=== PATIENT | male | born 1950 | race Caucasian/White ===

== ENCOUNTER → 2017-09-07 | Outpatient (CLI) | payer MEDICARE, OTHER ==
[2017-09-07 10:54] LABS: ABSOLUTE BASOPHILS # (AUTO) 0.1 10^3/uL (0.0-0.2); ABSOLUTE EOSINOPHILS # (AUTO) 0.3 10^3/uL (0.0-0.6); ABSOLUTE LYMPHOCYTES (AUTO) 3.7 10^3/uL (0.5-4.7); ABSOLUTE NEUT (AUTO) 4.7 10^3/uL (1.7-8.2); BASOPHILS % (AUTO) 0.5 % (0-2); EOSINOPHILS % (AUTO) 2.8 % (0-6); HEMATOCRIT 40.7 % (37.9-51.0); HEMOGLOBIN 13.6 g/dL (13.5-17.0); HGB HCT DIFFERENCE 0.1; LYMPHOCYTES % (AUTO) 38.3 % (13-45); MEAN CORPUSCULAR HEMOGLOBIN 30.6 pg (27.0-33.4); MEAN CORPUSCULAR HGB CONC 33.4 g/dL (32.0-36.0); MEAN CORPUSCULAR VOLUME 92 fl (80-97); MONOCYTES % (AUTO) 10.4 % (3-13); RED BLOOD COUNT 4.44 10^6/uL (4.35-5.55); RED CELL DISTRIBUTION WIDTH 15.2 % (11.5-14.0); WHITE BLOOD COUNT 9.8 10^3/uL (4.0-10.5)
[2017-09-07 11:19] LABS: ALANINE AMINOTRANSFERASE 32 U/L (21-72); ALBUMIN 4.2 g/dL (3.5-5.0); ALKALINE PHOSPHATASE 119 U/L (38-126); ANION GAP 14 (5-19); ASPARTATE AMINO TRANSFERASE 25 U/L (17-59); BILIRUBIN,DIRECT 0.4 mg/dL (0.0-0.4); BILIRUBIN,TOTAL 0.8 mg/dL (0.2-1.3); BLOOD UREA NITROGEN 17 mg/dL (7-20); C-REACTIVE PROTEIN 29.4 mg/L (<10.0); CALCIUM 10.4 mg/dL (8.4-10.2); CARBON DIOXIDE 24 mmol/L (22-30); CHLORIDE 109 mmol/L (98-107); CREATININE RESULT 0.87 mg/dL (0.52-1.25); GLUCOSE 127 mg/dL (75-110); POTASSIUM 4.5 mmol/L (3.6-5.0); SODIUM 146.7 mmol/L (137-145); TOTAL PROTEIN 8.1 g/dL (6.3-8.2)
[2017-09-07 11:29] LABS: ERYTHROCYTE SEDIMENTATION RATE 44 mm/hr (0-20)
--- NOTE | 2017-09-07 11:48 | RADIOLOGY REPORT (SQ) ---
EXAM DESCRIPTION: FOOT LEFT COMPLETE COMPLETED DATE/TIME: 09/07/2017 10:42 am REASON FOR STUDY: NON-PRS CHRONIC ULCER OTH PRT LEFT FOOT W NECROSIS OF MUSCLE COMPARISON: None. NUMBER OF VIEWS: Three views left foot. LIMITATIONS: Limited by lack of clinical history and absence of any prior comparison imaging. FINDINGS: Extensive artifact over the lateral aspect of the foot much of which looks like bandages a nd dressing to superficial wound. Lateral foot soft tissue swelling. Status post amputation of the proximal 5th ray along the proximal metatarsal shaft. Regional heterot opic and periosteal new bone. Indeterminate for osteomyelitis. However, there is sclerosis in the p roximal metatarsal which may represent chronic irritation/ infection. Remaining toes and metatarsals are intact. OTHER: No other significant finding. IMPRESSION: 1. Postoperative and other changes related to the foot as described. Chronic osteomyeli tis may well be present. A comparison with any priors would prove helpful to assess for interval floridalma nge. Further evaluation with MRI may also prove helpful if warranted. TECHNICAL DOCUMENTATION: JOB ID: [id number]
== END ==
LOC: WC 10:06
PROVIDERS: ATTEND Nurse Practitioner Family
DX: E11.621 Type 2 diabetes mellitus with foot ulcer (principal); L97.523 Non-pressure chronic ulcer of other part of left foot with necrosis of muscle
CPT/HCPCS: 36415; 80053; 83036; 85025; 85652; 86140

== ENCOUNTER 2017-09-08 12:30 | Inpatient (IN) | payer MEDICARE, OTHER ==
[2017-09-08] MEDS ORDERED: VANCOMYCIN HCL INJ 1000 MG VIAL IV ONE (14:49)
[2017-09-08] MEDS ORDERED: PIPERACILLIN/TAZOBACTAM 3.375 GM VIAL IV ONE (14:49)
--- NOTE | 2017-09-08 14:50 | ER Document Report ---
ED Medical Screen (RME) - General Mode of Arrival: Wheelchair Information source: Patient TRAVEL OUTSIDE OF THE U[place]S. IN LAST 30 DAYS: No - HPI Patient complains to provider of: Left foot infection Onset: This morning Associated Symptoms: Other - see notes above - Related Data Smoking: Non-smoker Frequency of alcohol use: Occasional Drug Abuse: None - General Chief Complaint: Foot Pain Stated Complaint: LEFT FOOT PAIN,REDNESS Time Seen by Provider: 09/08/17 14:38 Notes: 67 year old male with history of diabetes presents to the ED after being seen by Dr. Paula and told that he has a left foot infection. Patient states that the complication with his foot started 1 year ago with some lateral swelling. Patient saw multiple orthopedic surgeons who told him that an orthopedic boot would help with the swelling. 3 weeks ago patient explains that his foot became severely infected and was hospitalized at [facility] for 1 week. Patient was sent to [facility] to have his left fifth toe amputated. The wound was left open and he was sent to [place] for wound care. Patient saw Dr. Paula this morning who debrided the wound and said that the foot looks infected and he needs to be seen by the emergency department. (REGINA NUNEZ) - Related Data Allergies/Adverse Reactions: No Known Allergies Allergy (Verified 09/08/17 12:32) Past Medical History - General Information source: Patient - Social History Chew tobacco use (# tins/day): No Frequency of alcohol use: Occasional Drug Abuse: None Family history: Reviewed & Not Pertinent Endocrine Medical History: Reports: Hx Diabetes Mellitus Type 2 Renal/ Medical History: Denies: Hx Peritoneal Dialysis Past Surgical History: Reports: Hx Orthopedic Surgery - right shoulder - Immunizations Hx Diphtheria, Pertussis, Tetanus Vaccination: Yes History of Influenza Vaccine for 08/2017 - 01/2018 Season: No Review of Systems - Review of Systems Constitutional: No symptoms reported EENT: No symptoms reported Cardiovascular: No symptoms reported Respiratory: No symptoms reported Gastrointestinal: No symptoms reported Genitourinary: No symptoms reported Male Genitourinary: No symptoms reported Musculoskeletal: See HPI, Other - left foot pain and infection Skin: No symptoms reported Hematologic/Lymphatic: No symptoms reported Neurological/Psychological: No symptoms reported -: Yes All other systems reviewed and negative Physical Exam - General General appearance: Alert In distress: None - Extremities General upper extremity: Normal inspection, Normal ROM General lower extremity: No: Normal inspection - see foot exam below Foot: Other - Left fifth digit is absent. There is a large chronic appearing wound with packing that extends down two-thirds of the left foot to the base of the fifth metatarsal with surrounding erythema and serosanguineous discharge.. No: Normal - Vital signs Vitals: Temp Pulse Resp BP Pulse Ox 99.9 F 91 20 126/77 H 96 09/08/17 12:35 09/08/17 12:35 09/08/17 12:35 09/08/17 12:35 09/08/17 12:35 Course - Re-evaluation Re-evalutation: 09/08/17 14:[address] Paula, the pmo project manager, states that he already has taken a small piece of bone to send for culture, feels patient has active infection, agrees with getting CBC, CMP, ESR, CRP and given vancomycin and Zosyn. Recommends surgical debridement that is larger than what he can perform in the office, recommends admission hospitalist and debridement by surgicalist, states that if the surgicallist cannot get the patient to the OR today that Dr. Paula is happy be consulted but the soonest he could come in and operate would be tomorrow. ( RUPERTO SYLVESTER) - Vital Signs Vital signs: Temp Pulse Resp BP Pulse Ox 99.9 F 91 20 126/77 H 96 09/08/17 12:35 09/08/17 12:35 09/08/17 12:35 09/08/17 12:35 09/08/17 12:35 Doctor's Discharge - Discharge Clinical Impression: Diabetic foot ulcer Condition: Fair Disposition: ADMITTED INPATIENT Referrals: NATTY HERNANDEZ MD [Primary Care Provider] - Follow up as needed Scribe Documentation - Scribe Written by Christinee:: Juli Paz, 09/08/2017 1617 acting as scribe for :: Ashlyn
--- NOTE | 2017-09-08 16:08 | RADIOLOGY REPORT (SQ) ---
EXAM DESCRIPTION: FOOT LEFT COMPLETE COMPLETED DATE/TIME: 09/08/2017 3:56 pm REASON FOR STUDY: left foot wound, possible osteo COMPARISON: None. NUMBER OF VIEWS: Three views. TECHNIQUE: AP, lateral and oblique radiographic images acquired of the left foot. LIMITATIONS: None. FINDINGS: MINERALIZATION: Normal. BONES: There is amputation of the 5th digit from the mid 5th metatarsal. No osteomyelitis is appreci ated. JOINTS: No effusions. SOFT TISSUES: Somewhat amorphous calcifications are present in soft tissues laterally. Extensive sof t tissue irregularity is present. OTHER: No other significant finding. IMPRESSION: Amputation with extensive soft tissue changes as described. No definite osteomyelitis i s appreciated. TECHNICAL DOCUMENTATION: JOB ID: [id number] [employer]- All Rights Reserved
--- NOTE | 2017-09-08 16:26 | ER Document Report ---
ED General - General Chief Complaint: Foot Pain Stated Complaint: LEFT FOOT PAIN,REDNESS Time Seen by Provider: 09/08/17 14:38 Mode of Arrival: Wheelchair Information source: Patient, Dr. Office Notes: 67-year-old diabetic male sent in with concerns for ulceration of the left foot that will require debridement. Patient notes symptoms have been ongoing for over 1 year now and has been associated with multiple admissions and surgical interventions. Patient was recently discharged from care facility where he was receiving antibiotics. Patient notes that he went to the wound care clinic and they were concerned that they will require further surgery. Patient denies any fevers or chills denies any nausea vomiting admits to drainage from the foot. TRAVEL OUTSIDE OF THE U.S. IN LAST 30 DAYS: No - HPI Onset: Other Onset/Duration: Persistent Quality of pain: Achy Severity: Mild Pain Level: 1 Associated symptoms: Other Exacerbated by: Movement Relieved by: Denies Similar symptoms previously: Yes Recently seen / treated by doctor: Yes - Related Data Allergies/Adverse Reactions: No Known Allergies Allergy (Verified 09/08/17 12:32) Past Medical History - General Information source: Patient - Social History Smoking Status: Never Smoker Cigarette use (# per day): No Chew tobacco use (# tins/day): No Smoking Education Provided: No Frequency of alcohol use: Occasional Drug Abuse: None Family History: Reviewed & Not Pertinent Patient has suicidal ideation: No Endocrine Medical History: Reports: Hx Diabetes Mellitus Type 2 Renal/ Medical History: Denies: Hx Peritoneal Dialysis Past Surgical History: Reports: Hx Orthopedic Surgery - right shoulder - Immunizations Hx Diphtheria, Pertussis, Tetanus Vaccination: Yes Review of Systems - Review of Systems Notes: REVIEW OF SYSTEMS: CONSTITUTIONAL : Denies fever, chills, or sweats. Denies recent illness. EENT: Denies eye, ear, throat, or mouth pain or symptoms. Denies nasal or sinus congestion or discharge. Denies throat, tongue, or mouth swelling or difficulty swallowing. CARDIOVASCULAR: Denies chest pain. Denies palpitations or racing or irregular heart beat. Denies ankle edema. RESPIRATORY: Denies cough, cold, or chest congestion. Denies shortness of breath, difficulty breathing, or wheezing. GASTROINTESTINAL: Denies abdominal pain or distention. Denies nausea, vomiting , or diarrhea. Denies blood in vomitus, stools, or per rectum. Denies black, tarry stools. Denies constipation. GENITOURINARY: Denies difficulty urinating, painful urination, burning, frequency, blood in urine, or discharge. MUSCULOSKELETAL: Denies back or neck pain or stiffness. Denies joint pain or swelling. SKIN: Admits to left foot ulceration HEMATOLOGIC : Denies easy bruising or bleeding. LYMPHATIC: Denies swollen, enlarged glands. NEUROLOGICAL: Denies confusion or altered mental status. Denies passing out or loss of consciousness. Denies dizziness or lightheadedness. Denies headache. Denies weakness or paralysis or loss of use of either side. Denies problems with gait or speech. Denies sensory loss, numbness, or tingling. Denies seizures. PSYCHIATRIC: Denies anxiety or stress. Denies depression, suicidal ideation, or homicidal ideation. ALL OTHER SYSTEMS REVIEWED AND NEGATIVE. Dictation was performed using [employer] voice recognition software PHYSICAL EXAMINATION: GENERAL: Well-appearing, well-nourished and in no acute distress. HEAD: Atraumatic, normocephalic. EYES: Pupils equal round and reactive to light, extraocular movements intact, sclera anicteric, conjunctiva are normal. ENT: Nares patent, oropharynx clear without exudates. Moist mucous membranes. NECK: Normal range of motion, supple without lymphadenopathy LUNGS: Breath sounds clear to auscultation bilaterally and equal. No wheezes rales or rhonchi. HEART: Regular rate and rhythm without murmurs ABDOMEN: Soft, nontender, nondistended abdomen. No guarding, no rebound. No masses appreciated. Musculoskeletal: Normal range of motion, no pitting or edema. No cyanosis. NEUROLOGICAL: Cranial nerves grossly intact. Normal speech, normal gait. Normal sensory, motor exams PSYCH: Normal mood, normal affect. SKIN: Left foot is noted to have significant ulceration including amputation of the fifth digit Physical Exam - Vital signs Vitals: Temp Pulse Resp BP Pulse Ox 99.9 F 91 20 126/77 H 96 09/08/17 12:35 09/08/17 12:35 09/08/17 12:35 09/08/17 12:35 09/08/17 12:35 Course - Re-evaluation Re-evalutation: 09/08/17 16:26 Dr Sandhu paged 09/08/17 17:35 Pt is actually a hospitalist patient , will admit with antibiotics and surgical care - Vital Signs Vital signs: Temp Pulse Resp BP Pulse Ox 99.9 F 91 20 126/77 H 96 09/08/17 12:35 09/08/17 12:35 09/08/17 12:35 09/08/17 12:35 09/08/17 12:35 - Laboratory Result Diagrams: 09/08/17 17:15 09/08/17 17:15 - Diagnostic Test Radiology reviewed: Image reviewed, Reports reviewed Discharge - Discharge Clinical Impression: Diabetic foot ulcer Qualifiers: Diabetic foot ulcer location: toe Diabetes mellitus type: type 1 Laterality: left Non-pressure ulcer stage: with necrosis of muscle Qualified Code(s): E10.621 - Type 1 diabetes mellitus with foot ulcer; L97.523 - Non-pressure chronic ulcer of other part of left foot with necrosis of muscle; L97.523 - Non- pressure chronic ulcer of other part of left foot with necrosis of muscle; L97.523 - Non-pressure chronic ulcer of other part of left foot with necrosis of muscle; L97.523 - Non-pressure chronic ulcer of other part of left foot with necrosis of muscle Condition: Fair Disposition: ADMITTED INPATIENT Admitting Provider: Hospitalist Unit Admitted: Medical Floor
[2017-09-08 17:38] LABS: ABSOLUTE BASOPHILS # (AUTO) 0.1 10^3/uL (0.0-0.2); ABSOLUTE EOSINOPHILS # (AUTO) 0.3 10^3/uL (0.0-0.6); ABSOLUTE LYMPHOCYTES (AUTO) 3.2 10^3/uL (0.5-4.7); ABSOLUTE NEUT (AUTO) 5.7 10^3/uL (1.7-8.2); BASOPHILS % (AUTO) 0.9 % (0-2); EOSINOPHILS % (AUTO) 3.2 % (0-6); HEMOGLOBIN 13.2 g/dL (13.5-17.0); HGB HCT DIFFERENCE -0.4; LYMPHOCYTES % (AUTO) 30.9 % (13-45); MEAN CORPUSCULAR HEMOGLOBIN 30.6 pg (27.0-33.4); MEAN CORPUSCULAR VOLUME 93 fl (80-97); MONOCYTES % (AUTO) 9.5 % (3-13); RED BLOOD COUNT 4.31 10^6/uL (4.35-5.55); RED CELL DISTRIBUTION WIDTH 15.2 % (11.5-14.0); SEGMENTED NEUTROPHILS % (AUTO) 55.5 % (42-78); WHITE BLOOD COUNT 10.3 10^3/uL (4.0-10.5)
[2017-09-08] MEDS ORDERED: ONDANSETRON HCL INJ/PF 4 MG/2 ML SDV IV PRN (17:40)
[2017-09-08 17:56] LABS: ALANINE AMINOTRANSFERASE 32 U/L (21-72); ALBUMIN 4.1 g/dL (3.5-5.0); ALKALINE PHOSPHATASE 116 U/L (38-126); ANION GAP 14 (5-19); ASPARTATE AMINO TRANSFERASE 31 U/L (17-59); BILIRUBIN,DIRECT 0.5 mg/dL (0.0-0.4); BILIRUBIN,TOTAL 0.8 mg/dL (0.2-1.3); BLOOD UREA NITROGEN 17 mg/dL (7-20); C-REACTIVE PROTEIN 28.1 mg/L (<10.0); CALCIUM 10.3 mg/dL (8.4-10.2); CARBON DIOXIDE 21 mmol/L (22-30); CHLORIDE 113 mmol/L (98-107); CREATININE RESULT 0.79 mg/dL (0.52-1.25); GLUCOSE 102 mg/dL (75-110); POTASSIUM 4.8 mmol/L (3.6-5.0); SODIUM 148.4 mmol/L (137-145); TOTAL PROTEIN 7.9 g/dL (6.3-8.2)
[2017-09-08] MEDS ORDERED: GLUCAGON,HUMAN RECOMB 1 MG INJ IM PRN (17:58)
[2017-09-08] MEDS ORDERED: DEXTROSE 40% GEL 15 GM TUBE PO PRN ×2 (17:58)
[2017-09-08] MEDS ORDERED: DEXTROSE 50%-WATER 25 GM/50 ML DISP.SYRIN IV PRN ×2 (17:58)
[2017-09-08] MEDS ORDERED: PIPERACILLIN/TAZOBACTAM 3.375 GM VIAL IV SCH (18:00)
[2017-09-08] MEDS ORDERED: VANCOMYCIN HCL 0 MG in DEXTROSE 5%-WATER 250 ML IV NR (18:00)
[2017-09-08] MEDS ORDERED: RINGERS SOLUTION 1,000 ML IV PRN (18:01)
[2017-09-08] MEDS: LACTOBACILLUS ACIDOPHILUS 250 MG TAB PO SCH (18:26)
[2017-09-08] MEDS ORDERED: PIPERACILLIN SODIUM/TAZOBACTAM 3.375 GM in NORMAL SALINE 100 ML IV ONE (19:00)
[2017-09-08] MEDS: INSULIN GLARGINE,HUM.REC.ANLOG 1,000 UNIT/10 ML UNIT SUBCUT SCH (21:25)
[2017-09-08] MEDS: VANCOMYCIN HCL 1,250 MG in DEXTROSE 5%-WATER 250 ML IV SCH (21:53)
[2017-09-08] MEDS ORDERED: INSULIN GLARGINE,HUM.REC.ANLOG 1,000 UNIT/10 ML UNIT SUBCUT SCH (22:00)
[2017-09-08] MEDS: ASPIRIN 325 MG TABLET PO SCH (22:46)
[2017-09-08] MEDS: PIPERACILLIN SODIUM/TAZOBACTAM 3.375 GM in NORMAL SALINE 100 ML IV SCH (23:50)
[2017-09-09] MEDS ORDERED: DEXTROSE 40% GEL 15 GM TUBE PO PRN ×2 (00:40)
[2017-09-09] MEDS ORDERED: DEXTROSE 50%-WATER 25 GM/50 ML DISP.SYRIN IV PRN ×2 (00:40)
[2017-09-09] MEDS ORDERED: GLUCAGON,HUMAN RECOMB 1 MG INJ SUBCUT PRN (00:40)
--- NOTE | 2017-09-09 00:40 | PDOC H&P ---
History of Present Illness Admission Date/PCP: 09/08/17 17:19 NATTY HERNANDEZ MD Patient complains of: Left foot infection History of Present Illness: CHRIS HUNTER is a 67 year old male with a chronic left foot wound. Patient states that this all began last June. Patient states that he has failed several different therapies and finally had amputation of the small toe on the left. Patient have received antibiotics in the past. Patient is also a diabetic but states that he is well controlled. He does not have any sensation in his feet. He has pins and needles. Patient went to see Dr. Paula the frame expander for a wound check. Dr. Paula was concerned that wound is not healing and may be infected and requires surgical intervention. Patient denies any fevers and chills. Patient was told that he may have surgery today and has not eaten. In the ED x ray was completed and did not show any osteo. Patient is without leukocytosis or fever. Patient was given a dose of vancomyin and zosyn. Hospitalist was called for further evaluation of the patient and surgical consultation for I&D. Past Medical History Cardiac Medical History: Reports: Hypertension Endocrine Medical History: Reports: Diabetes Mellitus Type 2 Past Surgical History Past Surgical History: Reports: Orthopedic Surgery - right shoulder Social History Information Source: Patient Smoking Status: Never Smoker Frequency of Alcohol Use: None Hx Recreational Drug Use: No Hx Prescription Drug Abuse: No - Advance Directive Resuscitation Status: Full Code Family History Family History: Malignancy, Other - mother in MVA Parental Family History Reviewed: No Children Family History Reviewed: No Sibling(s) Family History Reviewed.: No Medication/Allergy Home Medications: Albiglutide [Tanzeum] 30 mg SQ FR@1000 09/08/17 Atorvastatin Calcium [Lipitor 10 mg Tablet] 10 mg PO QHS 09/08/17 Gabapentin [Neurontin 300 mg Capsule] 300 mg PO Q8 09/08/17 Insulin Aspart [Novolog Flexpen] 15 units SQ AC 09/08/17 Insulin Glargine,Hum.rec.anlog [Lantus] 90 units SQ QHS 09/08/17 Losartan Potassium [Cozaar 100 mg Tablet] 100 mg PO DAILY 09/08/17 Metoprolol Succinate [Toprol Xl 25 mg Tab.sr] 25 mg PO DAILY 09/08/17 Allergies/Adverse Reactions: No Known Allergies Allergy (Verified 09/08/17 12:32) Review of Systems Constitutional: ABSENT: chills, fever(s), headache(s), weight gain, weight loss Eyes: ABSENT: visual disturbances Ears: ABSENT: hearing changes Cardiovascular: PRESENT: edema. ABSENT: chest pain, dyspnea on exertion, orthropnea, palpitations Respiratory: ABSENT: cough, hemoptysis Gastrointestinal: ABSENT: abdominal pain, constipation, diarrhea, hematemesis, hematochezia, nausea, vomiting Genitourinary: ABSENT: dysuria, hematuria Musculoskeletal: ABSENT: joint swelling Integumentary: PRESENT: wounds. ABSENT: rash Neurological: ABSENT: abnormal gait, abnormal speech, confusion, dizziness, focal weakness, syncope Psychiatric: ABSENT: anxiety, depression, homidical ideation, suicidal ideation Endocrine: PRESENT: cold intolerance. ABSENT: heat intolerance, polydipsia, polyuria Hematologic/Lymphatic: ABSENT: easy bleeding, easy bruising Physical Exam Vital Signs: Temp Pulse Resp BP Pulse Ox 99.9 F 91 20 126/77 H 96 09/08/17 12:35 09/08/17 12:35 09/08/17 12:35 09/08/17 12:35 09/08/17 12:35 General appearance: PRESENT: morbidly obese Head exam: PRESENT: normocephalic Eye exam: PRESENT: conjunctiva pink, EOMI. ABSENT: scleral icterus Ear exam: PRESENT: normal external ear exam Mouth exam: PRESENT: moist, tongue midline Neck exam: ABSENT: carotid bruit, JVD, lymphadenopathy, thyromegaly Respiratory exam: PRESENT: clear to auscultation benny. ABSENT: rales, rhonchi, wheezes Cardiovascular exam: PRESENT: RRR. ABSENT: diastolic murmur, rubs, systolic murmur GI/Abdominal exam: PRESENT: normal bowel sounds, soft. ABSENT: distended, guarding, mass, organolmegaly, rebound, tenderness Rectal exam: PRESENT: deferred Extremities exam: PRESENT: pedal edema, other - left pedal and leg edema surgical boot dressing of left foot bloody. ABSENT: calf tenderness, clubbing Neurological exam: PRESENT: alert, awake, oriented to person, oriented to place , oriented to time, oriented to situation, CN II-XII grossly intact, motor sensory deficit Psychiatric exam: PRESENT: appropriate affect, normal mood. ABSENT: homicidal ideation, suicidal ideation Skin exam: PRESENT: dry, warm, other - left foot wound. ABSENT: cyanosis, rash Results Impressions: Foot X-Ray 09/08/17 14:49 IMPRESSION: Amputation with extensive soft tissue changes as described. No definite osteomyelitis is appreciated. Assessment & Plan - Diagnosis (1) Diabetic foot ulcer Qualifiers: Diabetic foot ulcer location: toe Diabetes mellitus type: type 2 Laterality: left Non-pressure ulcer stage: with necrosis of muscle Qualified Code(s): E11.621 - Type 2 diabetes mellitus with foot ulcer; L97.523 - Non-pressure chronic ulcer of other part of left foot with necrosis of muscle ; L97.523 - Non-pressure chronic ulcer of other part of left foot with necrosis of muscle; L97.523 - Non-pressure chronic ulcer of other part of left foot with necrosis of muscle; L97.523 - Non-pressure chronic ulcer of other part of left foot with necrosis of muscle Is this a current diagnosis for this admission?: Yes Plan: Patient referred by Dr. Paula for further evaluation. Patient continued on vancomycin and zosyn. Blood cultures drawn. Surgery consulted and will most likely evaluate patient in the am. No obvious osteo seen on XR of the foot. Will make patient NPO after midnight. (2) Morbid obesity Is this a current diagnosis for this admission?: Yes Plan: Counseled patient on caloric restriction. Physical activity limited by foot wound. (3) Type 2 diabetes mellitus Is this a current diagnosis for this admission?: Yes Plan: Will given patient 1/2 dose levemir as he will be NPO. Continue 15 Units of aspart with meals and SSI. (4) Hypernatremia Is this a current diagnosis for this admission?: Yes Plan: Secondary to dehydration. Will give gentle IV hydration and check labs in the am.
[2017-09-09] MEDS: VANCOMYCIN HCL 1,250 MG in DEXTROSE 5%-WATER 250 ML IV SCH ×3 (05:19→21:21)
[2017-09-09] MEDS: LANSOPRAZOLE 30 MG TAB.RAP.DR PO SCH (05:34)
[2017-09-09 06:36] LABS: HEMATOCRIT 36.4 % (37.9-51.0); HEMOGLOBIN 12.2 g/dL (13.5-17.0); HGB HCT DIFFERENCE 0.2; MEAN CORPUSCULAR HEMOGLOBIN 30.5 pg (27.0-33.4); MEAN CORPUSCULAR HGB CONC 33.4 g/dL (32.0-36.0); MEAN CORPUSCULAR VOLUME 91 fl (80-97); RED BLOOD COUNT 3.99 10^6/uL (4.35-5.55); RED CELL DISTRIBUTION WIDTH 15.3 % (11.5-14.0)
[2017-09-09 06:47] LABS: ANION GAP 11 (5-19); BLOOD UREA NITROGEN 15 mg/dL (7-20); CALCIUM 9.8 mg/dL (8.4-10.2); CARBON DIOXIDE 23 mmol/L (22-30); CHLORIDE 110 mmol/L (98-107); CREATININE RESULT 0.81 mg/dL (0.52-1.25); GLUCOSE 134 mg/dL (75-110); MAGNESIUM 1.7 mg/dL (1.6-2.3); POTASSIUM 4.1 mmol/L (3.6-5.0); SODIUM 143.8 mmol/L (137-145)
[2017-09-09] MEDS: PIPERACILLIN SODIUM/TAZOBACTAM 3.375 GM in NORMAL SALINE 100 ML IV SCH ×4 (06:50→23:39)
[2017-09-09] MEDS: INSULIN LISPRO 100 UNIT/ML 3 ML VIAL SUBCUT SCH ×3 (08:08→17:30)
[2017-09-09] MEDS ORDERED: VANCOMYCIN HCL INJ 1000 MG VIAL IV SCH (10:00)
[2017-09-09] MEDS: LACTOBACILLUS ACIDOPHILUS 250 MG TAB PO SCH ×2 (11:41→18:15)
--- NOTE | 2017-09-09 14:24 | RADIOLOGY REPORT (SQ) ---
EXAM DESCRIPTION: MRI LT LOWER EXTREMITY WITHOUT COMPLETED DATE/TIME: 09/09/2017 2:06 pm REASON FOR STUDY: Diabetic foot ulcer COMPARISON: Left foot films 09/07/2017, 09/08/2017 TECHNIQUE: Multiplanar imaging to include fat and fluid sensitive sequences. LIMITATIONS: None. FINDINGS: Along the lateral half of left foot, diffuse inflammatory phlegmon is present deep to a la rge soft tissue ulcer. Ulcer measures at least 5 cm in diameter. Phlegmon measures 12 cm long by 4 cm transverse by 4.4 cm AP. The phlegmon surrounds the proximal residual half of the 5th metatarsal which has abnormal bone marro w signal worrisome for osteomyelitis. The distal half of the 5th metatarsal and 5th toe have been re sected. There is atrophy of the intra osseous muscles and flexor digitorum brevis muscles with fatty replacem ent. Throughout the forefoot, there is skin thickening, subcutaneous edema, and increased interstitial flu id in the superficial and deep tissues worrisome for diffuse cellulitis. Remainder of the bones of the forefoot are grossly intact. IMPRESSION: Abnormal marrow signal in the proximal half of the 5th metatarsal with surrounding phleg mon worrisome for infection and osteomyelitis. Diffuse forefoot cellulitis, large soft tissue ulcer along the lateral forefoot. TECHNICAL DOCUMENTATION: JOB ID: [id number] [employer]- All Rights Reserved
[2017-09-09] MEDS: ACETAMINOPHEN 325 MG TABLET PO PRN (15:22)
--- NOTE | 2017-09-09 16:48 | CONSULTATION REPORT E ---
Consultation Report NAME: CHRIS HUNTER : 1950 AGE: 67Y DATE: 09/09/2017 212 B TO: LA ACUAÑ M.D. FROM: Requesting Physician DATE OF CONSULTATION: 09/09/2017 REASON FOR CONSULTATION: Patient with chronic wound on the left foot and for a possible debridement. HISTORY OF PRESENT ILLNESS: This is a 67-year-old type 2 diabetic on insulin who had a chronic wound on the left foot. This was initially debrided at [facility] around mid June and stayed in the hospital for 7 to 8 days, and then transferred to [facility] where they did an amputation of the left fifth toe, transmetatarsal fifth. He was then discharged and sent to [facility] where they applied a wound VAC around the first week of July. He was then discharged from [facility] around 09/02. [facility] and eventually was seen yesterday. He was apparently seen by a Dr. Paula at the [facility] who sent the patient to the emergency room for possible further debridement. Patient was in earlier this morning and I ordered an MRI of the left foot. MRI was suspicious for osteomyelitis of the remaining fifth metatarsal bone. Patient will likely need a further amputation of the fifth metatarsal. PAST MEDICAL HISTORY: 1. Endocrine medical history: Reports diabetes mellitus type 2. 2. Renal/ history: Denies history of peritoneal dialysis. PAST SURGICAL HISTORY: Reports history of orthopedic surgery, right shoulder. SOCIAL HISTORY: Never smoked. Alcohol use, occasional. Drug use, none. FAMILY HISTORY: Reviewed and not pertinent. ALLERGIES: No known drug allergies. REVIEW OF SYSTEMS: CONSTITUTIONAL: Denies fever, chills, or sweats. EENT: Denies eye, ear, throat, or mouth pain or symptoms. CARDIOVASCULAR: Denies chest pain. RESPIRATORY: Denies cough, cold, or chest congestion. GASTROINTESTINAL: Denies abdominal pains, nausea, vomiting, or diarrhea. GENITOURINARY: Denies difficulty voiding. MUSCULOSKELETAL: Denies back or neck pains or joint pains. SKIN: Admits to left foot ulceration. HEMATOLOGIC: Denies easy bruisability or bleeding. LYMPHATIC: Denies swollen or enlarged glands. UROLOGIC: Denies confusion or altered mental status. PSYCHIATRIC: Denies anxiety or stress. All other systems reviewed and negative. PHYSICAL EXAMINATION: GENERAL: Patient is alert and oriented, well nourished and in no apparent acute distress. HEAD: Atraumatic, normocephalic. EYES: Pupils equal, round, and reactive to light, extraocular movements intact, conjunctivae are normal. ENT: Nares patent. Moist mucous membranes. NECK: Normal range of motion and supple. LUNGS: Clear to auscultation bilaterally. HEART: Regular rate and rhythm. No murmurs. ABDOMEN: Soft, nontender. MUSCULOSKELETAL: Normal range of motions. No pitting edema. NEUROLOGIC: Cranial nerves intact. Patient is alert and oriented x3. PSYCH: Normal mood and normal affect. SKIN: The left foot is noted to have a large ulceration but no significant drainage. Appears to have amputation of the left fifth toe down to mid metatarsal. VITALS: Temperature is 99.9 Fahrenheit, pulse 91, respiratory 20 per minute, blood pressure 126/77, pulse ox 96% on room air. IMPRESSION: 1. Ulcer of the left lateral foot post amputation of the fifth toe and left fifth transmetatarsal. 2. High probability of osteomyelitis of the remaining fifth metatarsal bone on MRI today. PLAN: 1. Start IV antibiotics. 2. Keep n.p.o. for possible further debridement and amputation of the remaining fifth metatarsal bone. DICTATING PHYSICIAN: LA ACUÑA M.D. [id number] PHY#: [id number] ID: [id number] JOB#: [id number] ACCT: [id number] cc:LA ACUÑA M.D. >
[2017-09-09] MEDS ORDERED: TANZEUM 30 MG SUBCUT SCH (20:00)
[2017-09-09] MEDS: OXYCODONE-ACETAMINOPHEN 5-325 MG TABLET PO PRN (20:21)
[2017-09-09] MEDS: ATORVASTATIN CALCIUM 10 MG TABLET PO SCH (21:20)
[2017-09-09] MEDS: GABAPENTIN 300 MG CAPSULE PO SCH (21:21)
[2017-09-09] MEDS: ASPIRIN 325 MG TABLET PO SCH (21:21)
[2017-09-09] MEDS: INSULIN GLARGINE,HUM.REC.ANLOG 1,000 UNIT/10 ML UNIT SUBCUT SCH (21:53)
[2017-09-09 22:28] LABS: CREATININE RESULT 0.86 mg/dL (0.52-1.25)
[2017-09-10] MEDS: PIPERACILLIN SODIUM/TAZOBACTAM 3.375 GM in NORMAL SALINE 100 ML IV SCH ×4 (05:23→23:38)
[2017-09-10] MEDS: GABAPENTIN 300 MG CAPSULE PO SCH ×3 (05:24→21:48)
[2017-09-10] MEDS: LANSOPRAZOLE 30 MG TAB.RAP.DR PO SCH (05:26)
[2017-09-10] MEDS: VANCOMYCIN HCL 1,250 MG in DEXTROSE 5%-WATER 250 ML IV SCH ×3 (06:25→21:51)
--- NOTE | 2017-09-10 07:44 | EKG REPORT ---
SEVERITY:- ABNORMAL ECG - SINUS RHYTHM VENTRICULAR PREMATURE COMPLEX LAD, CONSIDER LEFT ANTERIOR FASCICULAR BLOCK CONSIDER ANTERIOR INFARCT : Confirmed by: Zi Connell MD 10-Sep-2017 07:43:53
[2017-09-10] MEDS ORDERED: (PENDING PHARMACY ID) (Insulin Aspart [Novolog Flexpen] 15 UNITS) SQ SCH (08:00)
[2017-09-10] MEDS ORDERED: INSULIN LISPRO 100 UNIT/ML 3 ML VIAL SUBCUT SCH (08:00)
[2017-09-10] MEDS: INSULIN LISPRO 100 UNIT/ML 3 ML VIAL SUBCUT SCH ×3 (09:07→18:03)
[2017-09-10] MEDS ORDERED: LOSARTAN POTASSIUM 50 MG TABLET PO SCH (10:00)
[2017-09-10] MEDS ORDERED: METOPROLOL SUCCINATE 25 MG TAB.SR.24H PO SCH (10:00)
[2017-09-10] MEDS: LACTOBACILLUS ACIDOPHILUS 250 MG TAB PO SCH ×2 (10:28→18:03)
--- NOTE | 2017-09-10 10:41 | PDOC PROGRESS REPORT ---
Subjective Progress Note for:: 09/09/17 Subjective:: Patient is a 67 year old male admitted for left diabetic foot ulcer. Patient found to have osteo on MRI. Patient is currently doing well. He is awaiting surgery which will be tomorrow. He is worried about not getting the right amount of insulin. Physical Exam Vital Signs: Temp Pulse Resp BP Pulse Ox 98.6 F 81 18 156/96 H 97 09/09/17 19:41 09/09/17 19:41 09/09/17 19:41 09/09/17 19:41 09/09/17 19:41 Intake & Output 09/08/17 09/09/17 09/10/17 06:59 06:59 06:59 Intake Total 1160 Output Total 1050 Balance 110 General appearance: PRESENT: no acute distress, morbidly obese Head exam: PRESENT: normocephalic Eye exam: PRESENT: conjunctiva pink. ABSENT: scleral icterus Mouth exam: PRESENT: moist, tongue midline Neck exam: PRESENT: carotid bruit, lymphadenopathy, thyromegaly. ABSENT: JVD Respiratory exam: PRESENT: clear to auscultation benny. ABSENT: rales, rhonchi, wheezes Cardiovascular exam: PRESENT: RRR. ABSENT: diastolic murmur, rubs, systolic murmur Pulses: PRESENT: normal dorsalis pedis pul Vascular exam: PRESENT: normal capillary refill GI/Abdominal exam: PRESENT: normal bowel sounds, soft - protuberant. ABSENT: distended, guarding, mass, organolmegaly, rebound, tenderness Rectal exam: PRESENT: deferred Extremities exam: PRESENT: full ROM. ABSENT: calf tenderness, clubbing, pedal edema Musculoskeletal exam: PRESENT: full ROM, other - left foot wound. Dressing in place. Neurological exam: PRESENT: alert, awake, oriented to person, oriented to place , oriented to time, oriented to situation, CN II-XII grossly intact. ABSENT: motor sensory deficit Psychiatric exam: PRESENT: appropriate affect, normal mood. ABSENT: homicidal ideation, suicidal ideation Skin exam: PRESENT: dry, intact, warm. ABSENT: cyanosis, rash Results Laboratory Results: 09/09/17 22:00 09/09/17 22:00 Creatinine 0.86 Est GFR ( Amer) > 60 Est GFR (Non-Af Amer) > 60 Impressions: Foot X-Ray 09/08/17 14:49 IMPRESSION: Amputation with extensive soft tissue changes as described. No definite osteomyelitis is appreciated. Lower Extremity MRI 09/09/17 00:00 IMPRESSION: Abnormal marrow signal in the proximal half of the 5th metatarsal with surrounding phlegmon worrisome for infection and osteomyelitis. Diffuse forefoot cellulitis, large soft tissue ulcer along the lateral forefoot. Assessment & Plan - Diagnosis (1) Diabetic foot ulcer Qualifiers: Diabetic foot ulcer location: toe Diabetes mellitus type: type 2 Laterality: left Non-pressure ulcer stage: with necrosis of muscle Qualified Code(s): E11.621 - Type 2 diabetes mellitus with foot ulcer; L97.523 - Non-pressure chronic ulcer of other part of left foot with necrosis of muscle ; L97.523 - Non-pressure chronic ulcer of other part of left foot with necrosis of muscle; L97.523 - Non-pressure chronic ulcer of other part of left foot with necrosis of muscle; L97.523 - Non-pressure chronic ulcer of other part of left foot with necrosis of muscle Is this a current diagnosis for this admission?: Yes Plan: Patient referred by Dr. Paula for further evaluation. Patient continued on vancomycin and zosyn. Blood cultures drawn. Surgery consulted and will most likely evaluate patient in the am. No obvious osteo seen on XR of the foot however extensive osteo seen on MRI of foot. Evaluated by surgery however cannot go to the OR today. Patient will go to OR in the morning. (2) Type 2 diabetes mellitus Is this a current diagnosis for this admission?: Yes Plan: Will given patient 1/2 dose levemir as he will be NPO again tonight. Continue 15 Units of aspart with meals and SSI. Patient also takes Tanzeum (albiglutide ) every Tuesday. This is no on the JAN. Patient has his home supply. (3) Morbid obesity Is this a current diagnosis for this admission?: Yes Plan: Counseled patient on caloric restriction. Physical activity limited by foot wound. (4) Hypernatremia Is this a current diagnosis for this admission?: Yes Plan: Resolved. Will continue IV hydration while patient NPO. (5) Osteomyelitis Qualifiers: Osteomyelitis location: foot Laterality: left Is this a current diagnosis for this admission?: Yes Plan: Patient currently on vancomycin and zosyn. Plan is for debridement by surgery in the am. Patient will also have a wound vanc. Patient may require 6/8 weeks of antibiotics. The antibiotics will be determined by the wound cultures. - Time Time Spent with patient: Less than 15 minutes Anticipated discharge: SNF Within: Other - Patient may require pic line and prolong antibiotics. Patient has gone to [facility] for this in the past.
--- NOTE | 2017-09-10 10:49 | PDOC PROGRESS REPORT ---
Subjective Progress Note for:: 09/10/17 Subjective:: Patient is a 67 year old male admitted for left diabetic foot ulcer. Patient found to have osteo on MRI. Patient is awaiting procedure. He hopes it is soon so that he can eat. Patient states he did not rest well last night because of the many interruptions. Physical Exam Vital Signs: Temp Pulse Resp BP Pulse Ox 97.9 F 61 18 124/79 97 09/10/17 07:42 09/10/17 07:42 09/10/17 07:42 09/10/17 07:42 09/10/17 07:42 Intake & Output 09/09/17 09/10/17 09/11/17 06:59 06:59 06:59 Intake Total 1160 Output Total 1450 Balance -290 General appearance: PRESENT: no acute distress, morbidly obese, other - sitting up at the side of the bed Head exam: PRESENT: normocephalic Eye exam: PRESENT: EOMI Neck exam: PRESENT: full ROM Respiratory exam: PRESENT: clear to auscultation benny. ABSENT: unlabored Cardiovascular exam: PRESENT: RRR, +S1, +S2 Rectal exam: PRESENT: deferred Gentrourinary exam: ABSENT: indwelling catheter Extremities exam: PRESENT: +1 edema - left foot swelling with dressing in place. Bluish discoloration of the toes. Musculoskeletal exam: PRESENT: full ROM Neurological exam: PRESENT: alert, awake, oriented to person, oriented to place , oriented to time, oriented to situation, CN II-XII grossly intact Psychiatric exam: PRESENT: normal mood Skin exam: PRESENT: intact, warm Results Laboratory Results: 09/09/17 22:00 09/09/17 22:00 Creatinine 0.86 Est GFR ( Amer) > 60 Est GFR (Non-Af Amer) > 60 Impressions: Foot X-Ray 09/08/17 14:49 IMPRESSION: Amputation with extensive soft tissue changes as described. No definite osteomyelitis is appreciated. Lower Extremity MRI 09/09/17 00:00 IMPRESSION: Abnormal marrow signal in the proximal half of the 5th metatarsal with surrounding phlegmon worrisome for infection and osteomyelitis. Diffuse forefoot cellulitis, large soft tissue ulcer along the lateral forefoot. Assessment & Plan - Diagnosis (1) Diabetic foot ulcer Qualifiers: Diabetic foot ulcer location: toe Diabetes mellitus type: type 2 Laterality: left Non-pressure ulcer stage: with necrosis of muscle Qualified Code(s): E11.621 - Type 2 diabetes mellitus with foot ulcer; L97.523 - Non-pressure chronic ulcer of other part of left foot with necrosis of muscle ; L97.523 - Non-pressure chronic ulcer of other part of left foot with necrosis of muscle; L97.523 - Non-pressure chronic ulcer of other part of left foot with necrosis of muscle; L97.523 - Non-pressure chronic ulcer of other part of left foot with necrosis of muscle Is this a current diagnosis for this admission?: Yes Plan: Patient referred by Dr. Paula for further evaluation. Patient continued on vancomycin and zosyn. Blood cultures pending. Surgery consulted following and plan to take patient to OR today. Extensive osteo seen on MRI of foot. (2) Type 2 diabetes mellitus Is this a current diagnosis for this admission?: Yes Plan: Patient can go back to taking 90Units of levemir after today. Continue 15 Units of aspart with meals and SSI. Patient also takes Tanzeum (albiglutide) every Tuesday. This is now on the JAN. Patient has his home supply as it is nonformulary. (3) Morbid obesity Is this a current diagnosis for this admission?: Yes Plan: Counseled patient on caloric restriction. Physical activity limited by foot wound. (4) Hypernatremia Is this a current diagnosis for this admission?: Yes Plan: Resolved. . (5) Osteomyelitis Qualifiers: Osteomyelitis location: foot Laterality: left Is this a current diagnosis for this admission?: Yes Plan: Patient currently on vancomycin and zosyn. Plan is for debridement by surgery in the am. Patient will also have a wound vanc. Patient may require 6 to 8 weeks of antibiotics. The antibiotics will be determined by the wound cultures. - Time Time Spent with patient: Less than 15 minutes Anticipated discharge: SNF Within: Other - Patient will require wound vac per surgery and will need prolong antibiotics. Will consult case management.
[2017-09-10] MEDS ORDERED: KETAMINE HCL INJ 500 MG/10 ML VIAL ONE (11:20)
[2017-09-10] MEDS ORDERED: MIDAZOLAM 2 MG/2 ML INJ ONE ×2 (11:21)
[2017-09-10] MEDS ORDERED: PROPOFOL INJ 200 MG/20 ML VIAL IV ONE (11:21)
[2017-09-10] MEDS ORDERED: FENTANYL CITRATE INJ/PF 100 MCG/2 ML AMPUL ONE ×2 (11:21)
[2017-09-10] MEDS ORDERED: PROMETHAZINE HCL INJ 25 MG/1 ML VIAL IV PRN (12:17)
[2017-09-10] MEDS ORDERED: DIPHENHYDRAMINE HCL 50 MG/ML VIAL IV PRN (12:17)
[2017-09-10] MEDS ORDERED: FENTANYL CITRATE INJ/PF 100 MCG/2 ML AMPUL IV PRN ×2 (12:17)
[2017-09-10] MEDS: OXYCODONE-ACETAMINOPHEN 5-325 MG TABLET PO PRN ×2 (16:18→23:35)
[2017-09-10] MEDS: ATORVASTATIN CALCIUM 10 MG TABLET PO SCH (21:48)
[2017-09-10] MEDS: ASPIRIN 325 MG TABLET PO SCH (21:49)
[2017-09-10] MEDS: INSULIN GLARGINE,HUM.REC.ANLOG 1,000 UNIT/10 ML UNIT SUBCUT SCH (21:51)
[2017-09-10] MEDS ORDERED: INSULIN GLARGINE,HUM.REC.ANLOG 1,000 UNIT/10 ML UNIT SUBCUT SCH (22:00)
[2017-09-11] MEDS: PIPERACILLIN SODIUM/TAZOBACTAM 3.375 GM in NORMAL SALINE 100 ML IV SCH ×2 (05:17→12:23)
[2017-09-11] MEDS: GABAPENTIN 300 MG CAPSULE PO SCH ×3 (05:17→23:34)
[2017-09-11] MEDS: LANSOPRAZOLE 30 MG TAB.RAP.DR PO SCH (05:26)
[2017-09-11] MEDS: VANCOMYCIN HCL 1,250 MG in DEXTROSE 5%-WATER 250 ML IV SCH (06:26)
[2017-09-11 06:56] LABS: ABSOLUTE BASOPHILS # (AUTO) 0.1 10^3/uL (0.0-0.2); ABSOLUTE EOSINOPHILS # (AUTO) 0.4 10^3/uL (0.0-0.6); ABSOLUTE LYMPHOCYTES (AUTO) 3.1 10^3/uL (0.5-4.7); ABSOLUTE MONOCYTES (AUTO) 1.1 10^3/uL (0.1-1.4); ABSOLUTE NEUT (AUTO) 3.8 10^3/uL (1.7-8.2); EOSINOPHILS % (AUTO) 5.1 % (0-6); HEMATOCRIT 36.6 % (37.9-51.0); HEMOGLOBIN 12.2 g/dL (13.5-17.0); LYMPHOCYTES % (AUTO) 36.1 % (13-45); MEAN CORPUSCULAR HEMOGLOBIN 30.4 pg (27.0-33.4); MEAN CORPUSCULAR HGB CONC 33.3 g/dL (32.0-36.0); MEAN CORPUSCULAR VOLUME 91 fl (80-97); MONOCYTES % (AUTO) 12.9 % (3-13); RED BLOOD COUNT 4.02 10^6/uL (4.35-5.55); RED CELL DISTRIBUTION WIDTH 15.1 % (11.5-14.0); SEGMENTED NEUTROPHILS % (AUTO) 44.9 % (42-78); WHITE BLOOD COUNT 8.5 10^3/uL (4.0-10.5)
[2017-09-11 07:24] LABS: ANION GAP 8 (5-19); BLOOD UREA NITROGEN 13 mg/dL (7-20); CARBON DIOXIDE 28 mmol/L (22-30); CHLORIDE 108 mmol/L (98-107); GLUCOSE 98 mg/dL (75-110); MAGNESIUM 1.8 mg/dL (1.6-2.3); POTASSIUM 4.1 mmol/L (3.6-5.0); SODIUM 144.2 mmol/L (137-145)
[2017-09-11] MEDS ORDERED: POLYETHYLENE GLYCOL 3350 POWDER 17 GM/1 PACKET PO PRN (08:29)
[2017-09-11] MEDS ORDERED: DOCUSATE SODIUM 100 MG CAPSULE PO ONE (09:00)
[2017-09-11] MEDS: INSULIN LISPRO 100 UNIT/ML 3 ML VIAL SUBCUT SCH ×3 (09:04→17:56)
[2017-09-11] MEDS: LACTOBACILLUS ACIDOPHILUS 250 MG TAB PO SCH ×2 (10:41→17:28)
[2017-09-11] MEDS: OXYCODONE-ACETAMINOPHEN 5-325 MG TABLET PO PRN (12:24)
--- NOTE | 2017-09-11 15:08 | PDOC PROGRESS REPORT ---
Subjective Progress Note for:: 09/11/17 Subjective:: Patient seen earlier this morning on morning rounds with nursing present. Patient reports his pain is relatively well controlled. He feels that he needs a wound VAC. Nursing reports his wound continues to drain a significant amount of serosanguineous fluid. Blood cultures have come back positive for MRSA Patient denies chest pain, shortness of breath, abdominal pain, nausea, vomiting , fevers, diarrhea, headache, new onset weakness. Patient admits to constipation and chills. He reports he normally has a bowel movement only every 4-5 days. We discussed the importance of regular bowel movements in light of his narcotic usage. Physical Exam Vital Signs: Temp Pulse Resp BP Pulse Ox 97.6 F 64 16 141/81 H 99 09/11/17 08:00 09/11/17 08:00 09/11/17 08:00 09/11/17 08:00 09/11/17 08:00 Intake & Output 09/10/17 09/11/17 09/12/17 06:59 06:59 06:59 Intake Total 1160 1195 Output Total 1450 730 Balance -290 465 Weight 106.8 kg Exam: General: Morbidly obese, awake alert and oriented x3, no acute respiratory distress HEENT: AT/NC, PERRL, EOMI, oropharynx is moist, pink, no scleral icterus, no conjunctival injection Neck: No JVD, trachea midline Chest: Clear to auscultation bilaterally, no wheezes rhonchi or rales CV: Regular rate and rhythm, normal S1 and S2, no rub or gallop Abdomen: Soft, nontender to palpation, nondistended, active bowel sounds; no rebound, rigidity, or guarding Extremities: No cyanosis, clubbing; LLE wrapped with bandage that has significant serosanguineous drainage Neuro: Cranial nerves II through XII are grossly intact without focal deficits; awake alert and oriented x3 Psych: Normal mood and affect Results Laboratory Results: 09/11/17 06:33 09/11/17 06:33 09/11/17 09/11/17 06:33 06:33 WBC 8.5 RBC 4.02 L Hgb 12.2 L Hct 36.6 L MCV 91 MCH 30.4 MCHC 33.3 RDW 15.1 H Plt Count 218 Seg Neutrophils % 44.9 Lymphocytes % 36.1 Monocytes % 12.9 Eosinophils % 5.1 Basophils % 1.0 Absolute Neutrophils 3.8 Absolute Lymphocytes 3.1 Absolute Monocytes 1.1 Absolute Eosinophils 0.4 Absolute Basophils 0.1 Sodium 144.2 Potassium 4.1 Chloride 108 H Carbon Dioxide 28 Anion Gap 8 BUN 13 Creatinine 1.00 Est GFR ( Amer) > 60 Est GFR (Non-Af Amer) > 60 Glucose 98 Calcium 10.0 Magnesium 1.8 09/10/17 12:18 Foot - Left Gram Stain - Final Impressions: Foot X-Ray 09/08/17 14:49 IMPRESSION: Amputation with extensive soft tissue changes as described. No definite osteomyelitis is appreciated. Lower Extremity MRI 09/09/17 00:00 IMPRESSION: Abnormal marrow signal in the proximal half of the 5th metatarsal with surrounding phlegmon worrisome for infection and osteomyelitis. Diffuse forefoot cellulitis, large soft tissue ulcer along the lateral forefoot. Assessment & Plan - Diagnosis (1) Bacteremia due to methicillin resistant Staphylococcus aureus Is this a current diagnosis for this admission?: Yes Plan: Patient's blood cultures are currently positive for MRSA with an MAYA for vancomycin of 1. Continue vancomycin and add rifampin (2) Osteomyelitis Qualifiers: Osteomyelitis type: other chronic Osteomyelitis location: foot Laterality : left Qualified Code(s): M86.672 - Other chronic osteomyelitis, left ankle and foot Is this a current diagnosis for this admission?: Yes Plan: Continue patient on vancomycin and add rifampin. Growing MRSA of the blood. Have consulted surgery for possible debridement and also for evaluation for wound VAC. (3) Diabetic foot ulcer Qualifiers: Diabetic foot ulcer location: toe Diabetes mellitus type: type 2 Laterality: left Non-pressure ulcer stage: with necrosis of muscle Qualified Code(s): E11.621 - Type 2 diabetes mellitus with foot ulcer; L97.523 - Non-pressure chronic ulcer of other part of left foot with necrosis of muscle ; L97.523 - Non-pressure chronic ulcer of other part of left foot with necrosis of muscle; L97.523 - Non-pressure chronic ulcer of other part of left foot with necrosis of muscle; L97.523 - Non-pressure chronic ulcer of other part of left foot with necrosis of muscle Is this a current diagnosis for this admission?: Yes Plan: Patient will likely require IV antibiotics and local wound care. Consider LTAC. 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 (5) Constipation Qualifiers: Constipation type: other constipation type Qualified Code(s): K59.09 - Other constipation Is this a current diagnosis for this admission?: Yes Plan: Vance and erica (6) Hypertension Qualifiers: Hypertension type: essential hypertension Qualified Code(s): I10 - Essential (primary) hypertension Is this a current diagnosis for this admission?: Yes Plan: Fair control on current regimen. 09/11/17 22:00 Losartan Potassium [Cozaar 50 mg Tablet] 100 mg PO QHS Metoprolol Succinate [Toprol Xl 25 mg Tab.sr] 25 mg PO QHS (7) Diabetic neuropathy Qualifiers: Diabetes mellitus type: type 2 Diabetes mellitus complication detail: diabetic polyneuropathy Qualified Code(s): E11.42 - Type 2 diabetes mellitus with diabetic polyneuropathy Is this a current diagnosis for this admission?: Yes Plan: Continue Neurontin (8) Morbid obesity Is this a current diagnosis for this admission?: Yes Plan: Consult dietary - Time Time Spent with patient: 35 or more minutes Medications reviewed and adjusted accordingly: Yes Anticipated discharge: Acute Rehab, Other - ltac - Inpatient Certification Based on my medical assessment, after consideration of the patient's comorbidities, presenting symptoms, or acuity I expect that the services needed warrant INPATIENT care.: Yes I certify that my determination is in accordance with my understanding of Medicare's requirements for reasonable and necessary INPATIENT services [42 CFR 412.3e].: Yes Medical Necessity: Need for IV Antibiotics Post Hospital Care: D/C Nuclear Physician Documentation
--- NOTE | 2017-09-11 15:24 | PDOC PROGRESS REPORT ---
Subjective Progress Note for:: 09/11/17 Subjective:: pain better Physical Exam Vital Signs: Temp Pulse Resp BP Pulse Ox 97.6 F 64 16 141/81 H 99 09/11/17 08:00 09/11/17 08:00 09/11/17 08:00 09/11/17 08:00 09/11/17 08:00 Intake & Output 09/10/17 09/11/17 09/12/17 06:59 06:59 06:59 Intake Total 1160 1195 110 Output Total 1450 730 Balance -290 465 110 Weight 106.8 kg Extremities exam: PRESENT: other - left foot - cellulitis better wound is clean Results Laboratory Results: 09/11/17 06:33 09/11/17 06:33 09/11/17 09/11/17 06:33 06:33 WBC 8.5 RBC 4.02 L Hgb 12.2 L Hct 36.6 L MCV 91 MCH 30.4 MCHC 33.3 RDW 15.1 H Plt Count 218 Seg Neutrophils % 44.9 Lymphocytes % 36.1 Monocytes % 12.9 Eosinophils % 5.1 Basophils % 1.0 Absolute Neutrophils 3.8 Absolute Lymphocytes 3.1 Absolute Monocytes 1.1 Absolute Eosinophils 0.4 Absolute Basophils 0.1 Sodium 144.2 Potassium 4.1 Chloride 108 H Carbon Dioxide 28 Anion Gap 8 BUN 13 Creatinine 1.00 Est GFR ( Amer) > 60 Est GFR (Non-Af Amer) > 60 Glucose 98 Calcium 10.0 Magnesium 1.8 09/10/17 12:18 Foot - Left Gram Stain - Final Impressions: Foot X-Ray 09/08/17 14:49 IMPRESSION: Amputation with extensive soft tissue changes as described. No definite osteomyelitis is appreciated. Lower Extremity MRI 09/09/17 00:00 IMPRESSION: Abnormal marrow signal in the proximal half of the 5th metatarsal with surrounding phlegmon worrisome for infection and osteomyelitis. Diffuse forefoot cellulitis, large soft tissue ulcer along the lateral forefoot. Assessment & Plan - Plan Summary Plan Summary: Osteomylitis of left 4 th toe , chronic infected wound s/p transmet amputation and wound debridement wOUND CARE - Wet to dry dressings should wait at least 3-5 days before the wound vac
[2017-09-11] MEDS: DOCUSATE SODIUM 100 MG CAPSULE PO SCH (17:27)
[2017-09-11] MEDS: RIFAMPIN 300 MG CAPSULE PO SCH (17:27)
[2017-09-11] MEDS: VANCOMYCIN HCL 1,000 MG in DEXTROSE 5%-WATER 250 ML IV SCH (17:37)
[2017-09-11] MEDS: ASPIRIN 325 MG TABLET PO SCH (23:33)
[2017-09-11] MEDS: SENNOSIDES/DOCUSATE 8.6-50 MG 1 EACH TABLET PO SCH (23:33)
[2017-09-11] MEDS: LOSARTAN POTASSIUM 50 MG TABLET PO SCH (23:34)
[2017-09-11] MEDS: METOPROLOL SUCCINATE 25 MG TAB.SR.24H PO SCH (23:35)
[2017-09-11] MEDS: ATORVASTATIN CALCIUM 10 MG TABLET PO SCH (23:35)
[2017-09-11] MEDS: INSULIN GLARGINE,HUM.REC.ANLOG 1,000 UNIT/10 ML UNIT SUBCUT SCH (23:50)
[2017-09-12] MEDS: VANCOMYCIN HCL 1,000 MG in DEXTROSE 5%-WATER 250 ML IV SCH ×3 (02:19→17:54)
[2017-09-12] MEDS: GABAPENTIN 300 MG CAPSULE PO SCH ×3 (06:10→22:01)
[2017-09-12] MEDS: RIFAMPIN 300 MG CAPSULE PO SCH ×2 (06:10→17:55)
--- NOTE | 2017-09-12 08:11 | OPERATIVE REPORT E ---
Operative Report NAME: CHRIS HUNTER : 1950 AGE: 67Y DATE OF SURGERY: 09/10/2017 ROOM: 212 PREOPERATIVE DIAGNOSIS: Osteomyelitis of the left foot metatarsal and left foot fourth toe along with infected necrotic wound on the lateral aspect of the left foot. POSTOPERATIVE DIAGNOSIS: OPERATION: Transmetatarsal amputation of the left fourth metatarsal bone along with amputation of the left toe with debridement of the left lateral aspect of the left foot wound. SURGEON: LOBITO WOOD M.D. ANESTHESIA: General. BLOOD LOSS: About 50 mL. SPECIMENS: Metatarsal bone of the toe sent for cultures. HISTORY AND INDICATION: As described. The patient has a history of this foot infection, diabetic. He had a toe amputation hospital. Admitted here for infection, cellulitis, pain. MRI showed osteomyelitis, surgical intervention. Patient explained about indications of operation, risks, benefits and complications including but not limited to recurrent infection, acute foot infection, the need for re-operations, risk of limb loss. All were thoroughly explained and he was taken to the operating room with informed consent. PROCEDURE: Under general anesthesia, in the supine position the left lower extremity cleaned in a sterile field, and then the foot examine carefully. In the left fourth toe, partially necrotic on the lateral aspect and the metatarsal head fourth toe was also brittle indicating osteomyelitis. After previously open wound towards fourth toe, fourth toe was completely incised and then head of the metatarsal bone of the fourth metatarsal was excised along with the fourth toe. The was basically suctioned out and then lateralized to the left toe. The wound was treated and bandaged. The wound was absolutely clean. The wound was irrigated copiously, bleeding was secured and the metatarsal part of the fourth area partially closed and rest of the wound left open. Dressings applied. Patient recovered without any problems. Patient taken to recovery room in stable condition. DICTATING PHYSICIAN: LOBITO WOOD M.D. [id number] PHY#: [id number] ID: [id number] JOB#: [id number] ACCT: [id number] cc:LOBITO WOOD M.D. >
[2017-09-12] MEDS: DOCUSATE SODIUM 100 MG CAPSULE PO SCH ×2 (09:33→17:54)
[2017-09-12] MEDS: LACTOBACILLUS ACIDOPHILUS 250 MG TAB PO SCH ×2 (09:33→17:55)
[2017-09-12] MEDS: INSULIN LISPRO 100 UNIT/ML 3 ML VIAL SUBCUT SCH ×3 (09:34→17:34)
--- NOTE | 2017-09-12 11:03 | RADIOLOGY REPORT (SQ) ---
EXAM DESCRIPTION: PICC INSERTION; FLUORO/CV PLACEMENT; U/S GUIDE FOR VASCULAR ACCESS COMPLETED DATE/TIME: 09/12/2017 10:40 am REASON FOR STUDY: osteo foot; IV ABX COMPARISON: MRI left foot 09/09/2017 FLUOROSCOPY TIME: 15 seconds 1 ultrasound and 1 C-arm images saved to PACS. TECHNIQUE: Fluoroscopic and ultrasound guided PICC placement. LIMITATIONS: None. PROCEDURE: After written consent and assessment were obtained, the patient was brought into the fluo roscopy room and place supine on the table. Ultrasound was used on the patient's left arm for PICC a ccess. The left arm was prepped and draped in a sterile fashion along with the ultrasound probe. The entry site was anesthetized with 1% lidocaine. A 21 gauge 7 cm needle was advanced through the skin a nd into the basilic vein under live ultrasound guidance. An ultrasound image was saved to PACS confi rming access site. A .018 guide wire was then inserted through the needle and into the venous system . The needle was the removed and an 11 blade scalpel was used to make a 1cm skin incision. A 5 fr pe el-away sheath was advanced over the wire and into the venous system. A measurement was then made usi ng the existing wire and live fluoroscopic guidance. The wire was then removed and the trimmed. The P ICC was advanced through the peel-away sheath and into the venous system. The peel-away sheath was re moved and the catheter was adhered to the patients arm with a stat lock. The catheter was then aspira dick and flushed and a sterile bandage was placed over the access site. A fluoroscopic spot image was saved to PACS confirming the catheter tip within the superior vena cava. IMPRESSION: SUCCESSFUL PLACEMENT OF A 5 FR DUAL LUMEN 47 CM PICC IN THE LEFT BASILIC VEIN. COMMENT: Patient medication list reviewed: Yes- Quality ID# 130:Eligible professional attests to doc umenting in the medical record they obtained, updated, or reviewed the patient's current medications. . Quality ID 145: Final reports for procedures using fluoroscopy that document radiation exposure tray zak, or exposure time and number of fluorographic images (if radiation exposure indices are not avail able) Quality ID #76: The patient was prepped and draped using maximum sterile barrier technique including cap, mask, sterile gown, sterile gloves, a large sterile sheet, hand hygiene, and 2% Chlorhexidine fo r cutaneous antisepsis. When ultrasound is used, sterile ultrasound techniques are followed requiring sterile gel and sterile probes. TECHNICAL DOCUMENTATION: JOB ID: [id number] [employer]- All Rights Reserved
[2017-09-12] MEDS: PIPERACILLIN SODIUM/TAZOBACTAM 4.5 GM in NORMAL SALINE 100 ML IV SCH ×3 (11:38→23:30)
--- NOTE | 2017-09-12 14:18 | OPERATIVE REPORT E ---
Operative Report NAME: CHRIS HUNTER : 1950 AGE: 67Y DATE OF SURGERY: 09/12/2017 ROOM: 212 PREOPERATIVE DIAGNOSES: 1. Large open left foot wound, status post excisional debridement of fourth and fifth ray amputations. 2. Secondary wound, plantar surface left foot. POSTOPERATIVE DIAGNOSES: 1. Large open left foot wound, status post excisional debridement of fourth and fifth ray amputations. 2. Secondary wound, plantar surface left foot. OPERATION: Excisional debridement of skin and subcutaneous tissue and washing of foot with redressing. SURGEON: KARTHIK BUSH M.D. ANESTHESIA: None. COMPLICATIONS: None. FINDINGS: See below. ESTIMATED BLOOD LOSS: Minimal. DRAINS: None. SUMMARY OF PROCEDURE: The patient's left foot was exposed. Surgical time-out was conducted. Multiple areas of devitalized peripheral skin and callus sharply debrided with #10 blade and tenotomy scissors. The wound washed vigorously with chlorhexidine, then repacked with wet-to-dry dressings. The patient tolerated the procedure well. DICTATING PHYSICIAN: KARTHIK BUSH M.D. [id number] PHY#: [id number] ID: [id number] JOB#: [id number] ACCT: [id number] cc:KARTHIK BUSH M.D. >
--- NOTE | 2017-09-12 16:18 | PDOC PROGRESS REPORT ---
Subjective Progress Note for:: 09/12/17 Subjective:: Patient seen earlier today morning rounds. Patient denies chest pain, shortness of breath, abdominal pain, nausea, vomiting , fevers, chills, diarrhea, constipation, headache, new onset weakness. Patient reports his pain is well controlled. Physical Exam Vital Signs: Temp Pulse Resp BP Pulse Ox 97.5 F 70 16 135/74 H 96 09/12/17 09:05 09/12/17 09:05 09/12/17 09:05 09/12/17 09:05 09/12/17 09:05 Intake & Output 09/11/17 09/12/17 09/13/17 06:59 06:59 06:59 Intake Total 1195 960 Output Total 730 2345 Balance 465 -1385 Weight 106.8 kg 110.2 kg Exam: General: Morbidly obese, awake alert and oriented x3, no acute respiratory distress HEENT: AT/NC, PERRL, EOMI, oropharynx is moist, pink, no scleral icterus, no conjunctival injection Neck: No JVD, trachea midline Chest: Clear to auscultation bilaterally, no wheezes rhonchi or rales CV: Regular rate and rhythm, normal S1 and S2, no rub or gallop Abdomen: Soft, nontender to palpation, nondistended, active bowel sounds; no rebound, rigidity, or guarding Extremities: No cyanosis, clubbing; LLE missing lateral 4th and 5th toe large incision to the bone on lateral foot, inferior 1cm round draining lesion Neuro: Cranial nerves II through XII are grossly intact without focal deficits; awake alert and oriented x3 Psych: Normal mood and affect Results Laboratory Results: 09/11/17 06:33 09/11/17 06:33 09/10/17 12:18 Foot - Left Gram Stain - Final Impressions: Foot X-Ray 09/08/17 14:49 IMPRESSION: Amputation with extensive soft tissue changes as described. No definite osteomyelitis is appreciated. Lower Extremity MRI 09/09/17 00:00 IMPRESSION: Abnormal marrow signal in the proximal half of the 5th metatarsal with surrounding phlegmon worrisome for infection and osteomyelitis. Diffuse forefoot cellulitis, large soft tissue ulcer along the lateral forefoot. Guidance Fluoroscopy 09/12/17 00:00 IMPRESSION: SUCCESSFUL PLACEMENT OF A 5 FR DUAL LUMEN 47 CM PICC IN THE LEFT BASILIC VEIN. Interventional Vascular Procedure 09/12/17 00:00 IMPRESSION: SUCCESSFUL PLACEMENT OF A 5 FR DUAL LUMEN 47 CM PICC IN THE LEFT BASILIC VEIN. PICC Line Insertion 09/12/17 00:00 IMPRESSION: SUCCESSFUL PLACEMENT OF A 5 FR DUAL LUMEN 47 CM PICC IN THE LEFT BASILIC VEIN. Assessment & Plan - Diagnosis (1) Bacteremia due to methicillin resistant Staphylococcus aureus Is this a current diagnosis for this admission?: Yes Plan: Patient's blood cultures are currently positive for MRSA with an MAYA for vancomycin of 1. Continue vancomycin and rifampin day #2 (2) Osteomyelitis Qualifiers: Osteomyelitis type: other chronic Osteomyelitis location: foot Laterality : left Qualified Code(s): M86.672 - Other chronic osteomyelitis, left ankle and foot Is this a current diagnosis for this admission?: Yes Plan: On vancomycin and add rifampin day #2. On Zosyn day #2. growing MRSA of the blood. Patient also growing likely MRSA as well as 2 different gram-negative rods in his wound. Overall I think the patient is a poor candidate for home therapy and or for conservative management. I feel that this patient would benefit from a BKA. He is already failed outpatient antibiotics for this infection once. (3) Diabetic foot ulcer Qualifiers: Diabetic foot ulcer location: toe Diabetes mellitus type: type 2 Laterality: left Non-pressure ulcer stage: with necrosis of muscle Qualified Code(s): E11.621 - Type 2 diabetes mellitus with foot ulcer; L97.523 - Non-pressure chronic ulcer of other part of left foot with necrosis of muscle ; L97.523 - Non-pressure chronic ulcer of other part of left foot with necrosis of muscle; L97.523 - Non-pressure chronic ulcer of other part of left foot with necrosis of muscle; L97.523 - Non-pressure chronic ulcer of other part of left foot with necrosis of muscle Is this a current diagnosis for this admission?: Yes (4) Type 2 diabetes mellitus Qualifiers: Diabetes mellitus complication status: with diabetic arthropathy Diabetes mellitus complication detail: with neuropathic arthropathy Diabetes mellitus sole sewer hand insulin use: with correction use Qualified Code(s): E11.618 - Type 2 diabetes mellitus with other diabetic arthropathy; Z79.4 - director diabetes (current) use of insulin; Z79.4 - custodial (current) use of insulin; Z79.4 - director diabetes ( current) use of insulin; Z79.4 - director diabetes (current) use of insulin Is this a current diagnosis for this admission?: Yes Plan: Currently well-controlled. (5) Constipation Qualifiers: Constipation type: other constipation type Qualified Code(s): K59.09 - Other constipation Is this a current diagnosis for this admission?: Yes Plan: resolved (6) Hypertension Qualifiers: Hypertension type: essential hypertension Qualified Code(s): I10 - Essential (primary) hypertension Is this a current diagnosis for this admission?: Yes Plan: Fair control on current regimen. (7) Diabetic neuropathy Qualifiers: Diabetes mellitus type: type 2 Diabetes mellitus complication detail: diabetic polyneuropathy Qualified Code(s): E11.42 - Type 2 diabetes mellitus with diabetic polyneuropathy Is this a current diagnosis for this admission?: Yes (8) Morbid obesity Is this a current diagnosis for this admission?: Yes - Time Time Spent with patient: 25-34 minutes Medications reviewed and adjusted accordingly: Yes
[2017-09-12 18:37] LABS: CREATININE RESULT 0.93 mg/dL (0.52-1.25)
[2017-09-12] MEDS: OXYCODONE-ACETAMINOPHEN 5-325 MG TABLET PO PRN (20:32)
[2017-09-12] MEDS: INSULIN LISPRO 100 UNIT/ML 3 ML VIAL SUBCUT PRN (22:00)
[2017-09-12] MEDS: INSULIN GLARGINE,HUM.REC.ANLOG 1,000 UNIT/10 ML UNIT SUBCUT SCH (22:00)
[2017-09-12] MEDS: ATORVASTATIN CALCIUM 10 MG TABLET PO SCH (22:01)
[2017-09-12] MEDS: ASPIRIN 325 MG TABLET PO SCH (22:01)
[2017-09-12] MEDS: LOSARTAN POTASSIUM 50 MG TABLET PO SCH (22:01)
[2017-09-12] MEDS: METOPROLOL SUCCINATE 25 MG TAB.SR.24H PO SCH (22:01)
[2017-09-12] MEDS: SENNOSIDES/DOCUSATE 8.6-50 MG 1 EACH TABLET PO SCH (22:02)
[2017-09-12] MEDS: NORMAL SALINE 10 ML SDV (SCHEDULED) IV SCH (22:03)
[2017-09-13] MEDS: VANCOMYCIN HCL 1,000 MG in DEXTROSE 5%-WATER 250 ML IV SCH ×3 (02:44→18:06)
[2017-09-13] MEDS: RIFAMPIN 300 MG CAPSULE PO SCH ×2 (05:45→17:21)
[2017-09-13] MEDS: GABAPENTIN 300 MG CAPSULE PO SCH ×3 (05:46→22:15)
[2017-09-13] MEDS: PIPERACILLIN SODIUM/TAZOBACTAM 4.5 GM in NORMAL SALINE 100 ML IV SCH ×3 (05:46→17:21)
[2017-09-13 06:35] LABS: ABSOLUTE BASOPHILS # (AUTO) 0.1 10^3/uL (0.0-0.2); ABSOLUTE EOSINOPHILS # (AUTO) 0.4 10^3/uL (0.0-0.6); ABSOLUTE MONOCYTES (AUTO) 0.9 10^3/uL (0.1-1.4); ABSOLUTE NEUT (AUTO) 3.1 10^3/uL (1.7-8.2); ANION GAP 10 (5-19); BASOPHILS % (AUTO) 0.9 % (0-2); BLOOD UREA NITROGEN 13 mg/dL (7-20); CALCIUM 9.9 mg/dL (8.4-10.2); CARBON DIOXIDE 28 mmol/L (22-30); CHLORIDE 106 mmol/L (98-107); CREATININE RESULT 0.93 mg/dL (0.52-1.25); EOSINOPHILS % (AUTO) 5.2 % (0-6); GLUCOSE 123 mg/dL (75-110); HEMATOCRIT 34.6 % (37.9-51.0); HEMOGLOBIN 11.5 g/dL (13.5-17.0); HGB HCT DIFFERENCE -0.1; MAGNESIUM 1.8 mg/dL (1.6-2.3); MEAN CORPUSCULAR HEMOGLOBIN 30.2 pg (27.0-33.4); MEAN CORPUSCULAR HGB CONC 33.3 g/dL (32.0-36.0); MEAN CORPUSCULAR VOLUME 91 fl (80-97); MONOCYTES % (AUTO) 12.3 % (3-13); POTASSIUM 4.1 mmol/L (3.6-5.0); RED BLOOD COUNT 3.82 10^6/uL (4.35-5.55); RED CELL DISTRIBUTION WIDTH 15.1 % (11.5-14.0); SEGMENTED NEUTROPHILS % (AUTO) 41.6 % (42-78); WHITE BLOOD COUNT 7.6 10^3/uL (4.0-10.5)
[2017-09-13] MEDS: INSULIN LISPRO 100 UNIT/ML 3 ML VIAL SUBCUT SCH ×3 (08:07→17:20)
[2017-09-13] MEDS: DOCUSATE SODIUM 100 MG CAPSULE PO SCH ×2 (09:49→17:07)
[2017-09-13] MEDS: LACTOBACILLUS ACIDOPHILUS 250 MG TAB PO SCH ×2 (10:02→17:20)
[2017-09-13] MEDS: NORMAL SALINE 10 ML SDV (SCHEDULED) IV SCH ×2 (10:59→22:19)
[2017-09-13] MEDS: INSULIN LISPRO 100 UNIT/ML 3 ML VIAL SUBCUT PRN ×3 (13:09→22:20)
[2017-09-13] MEDS: OXYCODONE-ACETAMINOPHEN 5-325 MG TABLET PO PRN (16:53)
--- NOTE | 2017-09-13 18:23 | PDOC PROGRESS REPORT ---
Subjective Progress Note for:: 09/13/17 Subjective:: Patient states he is doing much better. Patient states he does not want to go to rehab. Physical Exam Vital Signs: Temp Pulse Resp BP Pulse Ox 98.1 F 56 L 18 135/76 H 98 09/13/17 11:16 09/13/17 11:16 09/13/17 11:16 09/13/17 11:16 09/13/17 11:16 Intake & Output 09/12/17 09/13/17 09/14/17 06:59 06:59 06:59 Intake Total 960 1700 460 Output Total 2345 950 700 Balance -1385 750 -240 Weight 110.2 kg 111.8 kg General appearance: PRESENT: no acute distress, well-developed, well-nourished Head exam: PRESENT: atraumatic, normocephalic Eye exam: PRESENT: conjunctiva pink, EOMI. ABSENT: scleral icterus Ear exam: PRESENT: normal external ear exam Mouth exam: PRESENT: moist, tongue midline Neck exam: ABSENT: carotid bruit, JVD, lymphadenopathy, thyromegaly Respiratory exam: PRESENT: clear to auscultation benny. ABSENT: rales, rhonchi, wheezes Cardiovascular exam: PRESENT: RRR. ABSENT: diastolic murmur, rubs, systolic murmur Pulses: PRESENT: normal dorsalis pedis pul Vascular exam: PRESENT: normal capillary refill GI/Abdominal exam: PRESENT: normal bowel sounds, soft. ABSENT: distended, guarding, mass, organolmegaly, rebound, tenderness Rectal exam: PRESENT: deferred Extremities exam: PRESENT: full ROM. ABSENT: calf tenderness, clubbing, pedal edema Neurological exam: PRESENT: alert, awake, oriented to person, oriented to place , oriented to time, oriented to situation, CN II-XII grossly intact. ABSENT: motor sensory deficit Psychiatric exam: PRESENT: appropriate affect, normal mood. ABSENT: homicidal ideation, suicidal ideation Skin exam: PRESENT: dry, intact, warm, other - Foot with dressing in place.. ABSENT: cyanosis, rash Results Laboratory Results: 09/13/17 05:50 09/13/17 05:50 09/12/17 09/13/17 09/13/17 17:55 05:50 05:50 WBC 7.6 RBC 3.82 L Hgb 11.5 L Hct 34.6 L MCV 91 MCH 30.2 MCHC 33.3 RDW 15.1 H Plt Count 186 Seg Neutrophils % 41.6 L Lymphocytes % 40.0 Monocytes % 12.3 Eosinophils % 5.2 Basophils % 0.9 Absolute Neutrophils 3.1 Absolute Lymphocytes 3.0 Absolute Monocytes 0.9 Absolute Eosinophils 0.4 Absolute Basophils 0.1 Sodium 144.0 Potassium 4.1 Chloride 106 Carbon Dioxide 28 Anion Gap 10 BUN 13 Creatinine 0.93 0.93 Est GFR ( Amer) > 60 > 60 Est GFR (Non-Af Amer) > 60 > 60 Glucose 123 H Calcium 9.9 Magnesium 1.8 09/10/17 12:18 Foot - Left Gram Stain - Final Impressions: Foot X-Ray 09/08/17 14:49 IMPRESSION: Amputation with extensive soft tissue changes as described. No definite osteomyelitis is appreciated. Lower Extremity MRI 09/09/17 00:00 IMPRESSION: Abnormal marrow signal in the proximal half of the 5th metatarsal with surrounding phlegmon worrisome for infection and osteomyelitis. Diffuse forefoot cellulitis, large soft tissue ulcer along the lateral forefoot. Guidance Fluoroscopy 09/12/17 00:00 IMPRESSION: SUCCESSFUL PLACEMENT OF A 5 FR DUAL LUMEN 47 CM PICC IN THE LEFT BASILIC VEIN. Interventional Vascular Procedure 09/12/17 00:00 IMPRESSION: SUCCESSFUL PLACEMENT OF A 5 FR DUAL LUMEN 47 CM PICC IN THE LEFT BASILIC VEIN. PICC Line Insertion 09/12/17 00:00 IMPRESSION: SUCCESSFUL PLACEMENT OF A 5 FR DUAL LUMEN 47 CM PICC IN THE LEFT BASILIC VEIN. Assessment & Plan - Diagnosis (1) Diabetic foot ulcer Qualifiers: Diabetic foot ulcer location: toe Diabetes mellitus type: type 2 Laterality: left Non-pressure ulcer stage: with necrosis of muscle Qualified Code(s): E11.621 - Type 2 diabetes mellitus with foot ulcer; L97.523 - Non-pressure chronic ulcer of other part of left foot with necrosis of muscle ; L97.523 - Non-pressure chronic ulcer of other part of left foot with necrosis of muscle; L97.523 - Non-pressure chronic ulcer of other part of left foot with necrosis of muscle; L97.523 - Non-pressure chronic ulcer of other part of left foot with necrosis of muscle Is this a current diagnosis for this admission?: Yes Plan: With cellulitis and osteomyelitis of left fourth toe status post transmitted be taken with wound debridement: Patient will continue with IV antibiotics. Surgery is planning to place wound VAC. (2) Diabetic neuropathy Qualifiers: Diabetes mellitus type: type 2 Diabetes mellitus complication detail: diabetic polyneuropathy Qualified Code(s): E11.42 - Type 2 diabetes mellitus with diabetic polyneuropathy Is this a current diagnosis for this admission?: Yes (3) Hypernatremia Is this a current diagnosis for this admission?: Yes Plan: Resolved. (4) Hypertension Qualifiers: Hypertension type: essential hypertension Qualified Code(s): I10 - Essential (primary) hypertension Is this a current diagnosis for this admission?: Yes (5) Morbid obesity Is this a current diagnosis for this admission?: Yes Plan: Discussed dietary changes (6) Osteomyelitis Qualifiers: Osteomyelitis type: other chronic Osteomyelitis location: foot Laterality : left Qualified Code(s): M86.672 - Other chronic osteomyelitis, left ankle and foot Is this a current diagnosis for this admission?: Yes (7) Type 2 diabetes mellitus Qualifiers: Diabetes mellitus complication status: with diabetic arthropathy Diabetes mellitus complication detail: with neuropathic arthropathy Diabetes mellitus penitentiary insulin use: with binding cutter use Qualified Code(s): E11.618 - Type 2 diabetes mellitus with other diabetic arthropathy; Z79.4 - senior living (current) use of insulin; Z79.4 - senior living (current) use of insulin; Z79.4 - truck sales manager ( current) use of insulin; Z79.4 - truck sales manager (current) use of insulin Is this a current diagnosis for this admission?: Yes Plan: Continue current treatment regimen - Time Time Spent with patient: 15-24 minutes
--- NOTE | 2017-09-13 19:53 | PROGRESS NOTE E ---
Progress Note NAME: CHRIS HUNTER : 1950 AGE: 67Y DATE: 09/13/2017 ROOM: 212 ASSESSMENT: The wound on the foot looks clean with granulation tissue. A wound VAC was applied. He tolerated the wound VAC well. PLAN: In the meantime continue him on IV antibiotic therapy. Arrangements will be made for him to have a wound VAC at home this week. DICTATING PHYSICIAN: LA ACUÑA M.D. [id number] PHY#: [id number] ID: [id number] JOB#: [id number] ACCT: [id number] cc: >
[2017-09-13] MEDS: ATORVASTATIN CALCIUM 10 MG TABLET PO SCH (22:14)
[2017-09-13] MEDS: ASPIRIN 325 MG TABLET PO SCH (22:14)
[2017-09-13] MEDS: LOSARTAN POTASSIUM 50 MG TABLET PO SCH (22:15)
[2017-09-13] MEDS: METOPROLOL SUCCINATE 25 MG TAB.SR.24H PO SCH (22:16)
[2017-09-13] MEDS: NORMAL SALINE 10 ML SDV (AFTER EACH USE) IV PRN (22:19)
[2017-09-13] MEDS: SENNOSIDES/DOCUSATE 8.6-50 MG 1 EACH TABLET PO SCH (22:27)
[2017-09-13] MEDS: INSULIN GLARGINE,HUM.REC.ANLOG 1,000 UNIT/10 ML UNIT SUBCUT SCH (22:28)
[2017-09-14] MEDS: PIPERACILLIN SODIUM/TAZOBACTAM 4.5 GM in NORMAL SALINE 100 ML IV SCH ×5 (00:22→23:38)
[2017-09-14] MEDS: VANCOMYCIN HCL 1,000 MG in DEXTROSE 5%-WATER 250 ML IV SCH ×3 (02:30→17:11)
[2017-09-14] MEDS: GABAPENTIN 300 MG CAPSULE PO SCH ×3 (05:53→21:40)
[2017-09-14] MEDS: RIFAMPIN 300 MG CAPSULE PO SCH ×2 (05:53→17:13)
[2017-09-14] MEDS: INSULIN LISPRO 100 UNIT/ML 3 ML VIAL SUBCUT SCH ×3 (08:57→17:10)
[2017-09-14] MEDS: LACTOBACILLUS ACIDOPHILUS 250 MG TAB PO SCH ×2 (10:33→17:12)
[2017-09-14] MEDS: DOCUSATE SODIUM 100 MG CAPSULE PO SCH ×2 (10:33→17:11)
[2017-09-14] MEDS: NORMAL SALINE 10 ML SDV (SCHEDULED) IV SCH ×2 (10:34→21:45)
[2017-09-14] MEDS: INSULIN LISPRO 100 UNIT/ML 3 ML VIAL SUBCUT PRN (12:17)
--- NOTE | 2017-09-14 18:33 | PROGRESS NOTE E ---
Progress Note NAME: CHRIS HUNTER : 1950 AGE: 67Y DATE: 09/14/2017 ROOM: 212 SUBJECTIVE: The wound VAC appears to be functioning well with a minimal leak. Arrangements are being made for the patient to have a wound VAC at home. He remains afebrile. He as a PICC line in for IV antibiotic therapy. PLAN: As soon as all outpatient arrangements are made he can be discharged [facility] DICTATING PHYSICIAN: LA ACUÑA M.D. [id number] PHY#: [id number] ID: [id number] JOB#: [id number] ACCT: [id number] cc: >
--- NOTE | 2017-09-14 18:46 | PDOC PROGRESS REPORT ---
Subjective Progress Note for:: 09/14/17 Subjective:: Pt states that he is doing well. Physical Exam Vital Signs: Temp Pulse Resp BP Pulse Ox 97.6 F 71 20 154/86 H 98 09/14/17 16:46 09/14/17 16:46 09/14/17 16:46 09/14/17 16:46 09/14/17 16:46 Intake & Output 09/13/17 09/14/17 09/15/17 06:59 06:59 06:59 Intake Total 1700 710 910 Output Total 950 1300 1250 Balance 750 -590 -340 Weight 111.8 kg 157.7 kg General appearance: PRESENT: no acute distress, well-developed, well-nourished Head exam: PRESENT: atraumatic, normocephalic Eye exam: PRESENT: conjunctiva pink, EOMI. ABSENT: scleral icterus Ear exam: PRESENT: normal external ear exam Mouth exam: PRESENT: moist, tongue midline Neck exam: ABSENT: carotid bruit, JVD, lymphadenopathy, thyromegaly Respiratory exam: PRESENT: clear to auscultation benny. ABSENT: rales, rhonchi, wheezes Cardiovascular exam: PRESENT: RRR. ABSENT: diastolic murmur, rubs, systolic murmur Pulses: PRESENT: normal dorsalis pedis pul Vascular exam: PRESENT: normal capillary refill GI/Abdominal exam: PRESENT: normal bowel sounds, soft. ABSENT: distended, guarding, mass, organolmegaly, rebound, tenderness Rectal exam: PRESENT: deferred Extremities exam: PRESENT: full ROM. ABSENT: calf tenderness, clubbing, pedal edema Neurological exam: PRESENT: alert, awake, oriented to person, oriented to place , oriented to time, oriented to situation, CN II-XII grossly intact. ABSENT: motor sensory deficit Psychiatric exam: PRESENT: appropriate affect, normal mood. ABSENT: homicidal ideation, suicidal ideation Skin exam: PRESENT: other - Left foot with dressing in place and wound VAC Results Laboratory Results: 09/13/17 05:50 09/13/17 05:50 09/10/17 12:18 Foot - Left Gram Stain - Final Impressions: Foot X-Ray 09/08/17 14:49 IMPRESSION: Amputation with extensive soft tissue changes as described. No definite osteomyelitis is appreciated. Lower Extremity MRI 09/09/17 00:00 IMPRESSION: Abnormal marrow signal in the proximal half of the 5th metatarsal with surrounding phlegmon worrisome for infection and osteomyelitis. Diffuse forefoot cellulitis, large soft tissue ulcer along the lateral forefoot. Guidance Fluoroscopy 09/12/17 00:00 IMPRESSION: SUCCESSFUL PLACEMENT OF A 5 FR DUAL LUMEN 47 CM PICC IN THE LEFT BASILIC VEIN. Interventional Vascular Procedure 09/12/17 00:00 IMPRESSION: SUCCESSFUL PLACEMENT OF A 5 FR DUAL LUMEN 47 CM PICC IN THE LEFT BASILIC VEIN. PICC Line Insertion 09/12/17 00:00 IMPRESSION: SUCCESSFUL PLACEMENT OF A 5 FR DUAL LUMEN 47 CM PICC IN THE LEFT BASILIC VEIN. Assessment & Plan - Diagnosis (1) Diabetic foot ulcer Qualifiers: Diabetic foot ulcer location: toe Diabetes mellitus type: type 2 Laterality: left Non-pressure ulcer stage: with necrosis of muscle Qualified Code(s): E11.621 - Type 2 diabetes mellitus with foot ulcer; L97.523 - Non-pressure chronic ulcer of other part of left foot with necrosis of muscle ; L97.523 - Non-pressure chronic ulcer of other part of left foot with necrosis of muscle; L97.523 - Non-pressure chronic ulcer of other part of left foot with necrosis of muscle; L97.523 - Non-pressure chronic ulcer of other part of left foot with necrosis of muscle Is this a current diagnosis for this admission?: Yes Plan: Secondary to MRSA, enterococcus, Proteus cellulitis and osteomyelitis of left fourth toe status post transmitted be taken with wound debridement: Patient will continue with IV antibiotics. Surgery is planning to place wound VAC. (2) Diabetic neuropathy Qualifiers: Diabetes mellitus type: type 2 Diabetes mellitus complication detail: diabetic polyneuropathy Qualified Code(s): E11.42 - Type 2 diabetes mellitus with diabetic polyneuropathy Is this a current diagnosis for this admission?: Yes Plan: Continue current treatment. (3) Hypernatremia Is this a current diagnosis for this admission?: Yes Plan: Resolved. (4) Hypertension Qualifiers: Hypertension type: essential hypertension Qualified Code(s): I10 - Essential (primary) hypertension Is this a current diagnosis for this admission?: Yes Plan: The current medications. (5) Morbid obesity Is this a current diagnosis for this admission?: Yes Plan: Discussed dietary changes (6) Osteomyelitis Qualifiers: Osteomyelitis type: other chronic Osteomyelitis location: foot Laterality : left Qualified Code(s): M86.672 - Other chronic osteomyelitis, left ankle and foot Is this a current diagnosis for this admission?: Yes Plan: Secondary to MRSA, Proteus, enterococcus: We will continue current antibiotics. (7) Type 2 diabetes mellitus Qualifiers: Diabetes mellitus complication status: with diabetic arthropathy Diabetes mellitus complication detail: with neuropathic arthropathy Diabetes mellitus terminal superintendent insulin use: with terminal superintendent use Qualified Code(s): E11.618 - Type 2 diabetes mellitus with other diabetic arthropathy; Z79.4 - alf (current) use of insulin; Z79.4 - terminal makeup operator (current) use of insulin; Z79.4 - alf ( current) use of insulin; Z79.4 - terminal makeup operator (current) use of insulin Is this a current diagnosis for this admission?: Yes Plan: Continue current treatment regimen - Time Time Spent with patient: 15-24 minutes
[2017-09-14] MEDS: OXYCODONE-ACETAMINOPHEN 5-325 MG TABLET PO PRN (20:37)
[2017-09-14] MEDS: ATORVASTATIN CALCIUM 10 MG TABLET PO SCH (21:41)
[2017-09-14] MEDS: METOPROLOL SUCCINATE 25 MG TAB.SR.24H PO SCH (21:41)
[2017-09-14] MEDS: LOSARTAN POTASSIUM 50 MG TABLET PO SCH (21:42)
[2017-09-14] MEDS: SENNOSIDES/DOCUSATE 8.6-50 MG 1 EACH TABLET PO SCH (21:44)
[2017-09-14] MEDS: INSULIN GLARGINE,HUM.REC.ANLOG 1,000 UNIT/10 ML UNIT SUBCUT SCH (21:47)
[2017-09-14] MEDS: ASPIRIN 325 MG TABLET PO SCH (23:35)
[2017-09-15] MEDS: VANCOMYCIN HCL 1,000 MG in DEXTROSE 5%-WATER 250 ML IV SCH ×2 (01:22→10:25)
[2017-09-15] MEDS: RIFAMPIN 300 MG CAPSULE PO SCH (05:23)
[2017-09-15] MEDS: PIPERACILLIN SODIUM/TAZOBACTAM 4.5 GM in NORMAL SALINE 100 ML IV SCH (05:23)
[2017-09-15] MEDS: GABAPENTIN 300 MG CAPSULE PO SCH ×3 (05:24→22:35)
[2017-09-15] MEDS: INSULIN LISPRO 100 UNIT/ML 3 ML VIAL SUBCUT SCH ×3 (08:42→16:53)
[2017-09-15 09:14] LABS: ABSOLUTE BASOPHILS # (AUTO) 0.1 10^3/uL (0.0-0.2); ABSOLUTE EOSINOPHILS # (AUTO) 0.5 10^3/uL (0.0-0.6); ABSOLUTE LYMPHOCYTES (AUTO) 3.2 10^3/uL (0.5-4.7); ABSOLUTE MONOCYTES (AUTO) 1.1 10^3/uL (0.1-1.4); ABSOLUTE NEUT (AUTO) 4.4 10^3/uL (1.7-8.2); BASOPHILS % (AUTO) 1.1 % (0-2); EOSINOPHILS % (AUTO) 4.9 % (0-6); HEMATOCRIT 37.1 % (37.9-51.0); HEMOGLOBIN 12.4 g/dL (13.5-17.0); HGB HCT DIFFERENCE 0.1; LYMPHOCYTES % (AUTO) 35.1 % (13-45); MEAN CORPUSCULAR HEMOGLOBIN 30.6 pg (27.0-33.4); MEAN CORPUSCULAR HGB CONC 33.5 g/dL (32.0-36.0); MEAN CORPUSCULAR VOLUME 92 fl (80-97); MONOCYTES % (AUTO) 11.7 % (3-13); RED BLOOD COUNT 4.06 10^6/uL (4.35-5.55); RED CELL DISTRIBUTION WIDTH 15.1 % (11.5-14.0); SEGMENTED NEUTROPHILS % (AUTO) 47.2 % (42-78); WHITE BLOOD COUNT 9.3 10^3/uL (4.0-10.5)
[2017-09-15 09:33] LABS: ALANINE AMINOTRANSFERASE 36 U/L (21-72); ALBUMIN 3.6 g/dL (3.5-5.0); ALKALINE PHOSPHATASE 126 U/L (38-126); ANION GAP 11 (5-19); ASPARTATE AMINO TRANSFERASE 32 U/L (17-59); BILIRUBIN,DIRECT 0.4 mg/dL (0.0-0.4); BLOOD UREA NITROGEN 13 mg/dL (7-20); CALCIUM 9.9 mg/dL (8.4-10.2); CARBON DIOXIDE 28 mmol/L (22-30); CHLORIDE 107 mmol/L (98-107); CREATININE RESULT 1.03 mg/dL (0.52-1.25); GLUCOSE 94 mg/dL (75-110); POTASSIUM 4.2 mmol/L (3.6-5.0); SODIUM 146.1 mmol/L (137-145); TOTAL PROTEIN 7.1 g/dL (6.3-8.2)
[2017-09-15] MEDS: NORMAL SALINE 10 ML SDV (SCHEDULED) IV SCH ×2 (10:25→22:38)
[2017-09-15] MEDS: DOCUSATE SODIUM 100 MG CAPSULE PO SCH ×2 (10:25→17:19)
[2017-09-15] MEDS: LACTOBACILLUS ACIDOPHILUS 250 MG TAB PO SCH ×2 (10:25→17:20)
--- NOTE | 2017-09-15 13:33 | PDOC DISCHARGE SUMMARY ---
General - Admit/Disc Date/PCP Admission Date/Primary Care Provider: 09/09/17 13:27 NATTY HERNANDEZ MD Discharge Date: 09/15/17 - Discharge Diagnosis (1) Diabetic foot ulcer Is this a current diagnosis for this admission?: Yes Summary: Complicated by osteomyelitis resulting in left foot metatarsal amputation of fourth digit wound complicated by MRSA, enterococcus, Proteus: Patient will be discharged home on vancomycin and Levaquin with stop date of antibiotics being October 24, 2017 (2) Diabetic neuropathy Is this a current diagnosis for this admission?: Yes Summary: Continue current management (3) Hypernatremia Is this a current diagnosis for this admission?: Yes Summary: Resolved. (4) Hypertension Is this a current diagnosis for this admission?: Yes Summary: Continue current treatment. (5) Morbid obesity Is this a current diagnosis for this admission?: Yes Summary: Encourage dietary changes (6) Osteomyelitis Is this a current diagnosis for this admission?: Yes Summary: Status post amputation of fourth left toe wound complicated by MRSA Proteus and enterococcus: Patient will be on vancomycin and Levaquin for 6 weeks. Stop date is October 24, 2017 (7) Type 2 diabetes mellitus Is this a current diagnosis for this admission?: Yes - Additional Information Resuscitation Status: Full Code Discharge Diet: Cardiac, Diabetic Discharge Activity: Balance Activity w/Rest, Keep Legs Elevated Home Medications: Albiglutide [Tanzeum] 30 mg SQ FR@1000 09/08/17 Atorvastatin Calcium [Lipitor 10 mg Tablet] 10 mg PO QHS 09/08/17 Gabapentin [Neurontin 300 mg Capsule] 300 mg PO Q8 09/08/17 Insulin Aspart [Novolog Flexpen] 15 units SQ AC 09/08/17 Insulin Glargine,Hum.rec.anlog [Lantus] 90 units SQ QHS 09/08/17 Losartan Potassium [Cozaar 100 mg Tablet] 100 mg PO DAILY 09/08/17 Metoprolol Succinate [Toprol Xl 25 mg Tab.sr] 25 mg PO DAILY 09/08/17 Levofloxacin 500 mg/D5w RTU [Levaquin RTU 500Mg/D5w 100 ml Premix Bag] 750 mg IV DAILY 42 Days #30 rtupb 09/15/17 Oxycodone HCl/Acetaminophen [Percocet 5-325 mg Tablet] 1 tab PO Q4HP PRN #15 tablet 09/15/17 Polyethylene Glycol 3350 [Miralax Powder 17 gm/Packet] 17 gm PO DAILYP PRN powd.pack 09/15/17 Sennosides/Docusate 8.6-50 mg [Senna Plus Tablet] 2 each PO QHS tablet Vancomycin HCl in Dextrose 5 % [Vancomycin 1.5 Gram/500 ml-D5w] 1.5 gm IV Q12 42 Days #60 plast..bag 09/15/17 History of Present Illness History of Present Illness: CHRIS HUNTER is a 67 year old male presents with chronic Left foot wound. Hospital Course Hospital Course: Patient is a 67-year-old gentleman that was admitted for chronic left foot wound. Patient was seen by surgery where he underwent surgery for fourth digit amputation with wound debridement. Patient had wound cultures obtained which demonstrated MRSA Proteus and enterococcus. Patient's wound cultures were reviewed and antibiotic regimen was adjusted to the following vancomycin 1500 mg IV every 12 hours and Levaquin 750 mg IV daily. Patient has PICC line in place for IV antibiotic administration. Surgery has ordered for wound care and wound VAC to help with wound healing. Patient has done well throughout hospitalization with no further issues. Physical Exam Vital Signs: Temp Pulse Resp BP Pulse Ox 98.2 F 68 16 160/90 H 98 09/15/17 11:58 09/15/17 11:58 09/15/17 11:58 09/15/17 11:58 09/15/17 11:58 Intake & Output 09/14/17 09/15/17 09/16/17 06:59 06:59 06:59 Intake Total 710 1360 Output Total 1300 3100 Balance -590 -1740 Weight 157.7 kg 157 kg General appearance: PRESENT: no acute distress, well-developed, well-nourished Head exam: PRESENT: atraumatic, normocephalic Eye exam: PRESENT: conjunctiva pink, EOMI. ABSENT: scleral icterus Ear exam: PRESENT: normal external ear exam Mouth exam: PRESENT: moist, tongue midline Neck exam: ABSENT: carotid bruit, JVD, lymphadenopathy, thyromegaly Respiratory exam: PRESENT: clear to auscultation benny. ABSENT: rales, rhonchi, wheezes Cardiovascular exam: PRESENT: RRR. ABSENT: diastolic murmur, rubs, systolic murmur Pulses: PRESENT: normal dorsalis pedis pul Vascular exam: PRESENT: normal capillary refill GI/Abdominal exam: PRESENT: normal bowel sounds, soft. ABSENT: distended, guarding, mass, organolmegaly, rebound, tenderness Rectal exam: PRESENT: deferred Extremities exam: PRESENT: full ROM, other - Left foot with dressing in place. ABSENT: calf tenderness, clubbing, pedal edema Neurological exam: PRESENT: alert, awake, oriented to person, oriented to place , oriented to time, oriented to situation, CN II-XII grossly intact. ABSENT: motor sensory deficit Psychiatric exam: PRESENT: appropriate affect, normal mood. ABSENT: homicidal ideation, suicidal ideation Skin exam: PRESENT: dry, intact, warm. ABSENT: cyanosis, rash Results Laboratory Results: 09/15/17 08:47 09/15/17 08:47 09/15/17 09/15/17 08:47 08:47 WBC 9.3 RBC 4.06 L Hgb 12.4 L Hct 37.1 L MCV 92 MCH 30.6 MCHC 33.5 RDW 15.1 H Plt Count 224 Seg Neutrophils % 47.2 Lymphocytes % 35.1 Monocytes % 11.7 Eosinophils % 4.9 Basophils % 1.1 Absolute Neutrophils 4.4 Absolute Lymphocytes 3.2 Absolute Monocytes 1.1 Absolute Eosinophils 0.5 Absolute Basophils 0.1 Sodium 146.1 H Potassium 4.2 Chloride 107 Carbon Dioxide 28 Anion Gap 11 BUN 13 Creatinine 1.03 Est GFR ( Amer) > 60 Est GFR (Non-Af Amer) > 60 Glucose 94 Calcium 9.9 Total Bilirubin 1.0 AST 32 ALT 36 Alkaline Phosphatase 126 Total Protein 7.1 Albumin 3.6 09/10/17 12:18 Foot - Left Gram Stain - Final Impressions: Foot X-Ray 09/08/17 14:49 IMPRESSION: Amputation with extensive soft tissue changes as described. No definite osteomyelitis is appreciated. Lower Extremity MRI 09/09/17 00:00 IMPRESSION: Abnormal marrow signal in the proximal half of the 5th metatarsal with surrounding phlegmon worrisome for infection and osteomyelitis. Diffuse forefoot cellulitis, large soft tissue ulcer along the lateral forefoot. Guidance Fluoroscopy 09/12/17 00:00 IMPRESSION: SUCCESSFUL PLACEMENT OF A 5 FR DUAL LUMEN 47 CM PICC IN THE LEFT BASILIC VEIN. Interventional Vascular Procedure 09/12/17 00:00 IMPRESSION: SUCCESSFUL PLACEMENT OF A 5 FR DUAL LUMEN 47 CM PICC IN THE LEFT BASILIC VEIN. PICC Line Insertion 09/12/17 00:00 IMPRESSION: SUCCESSFUL PLACEMENT OF A 5 FR DUAL LUMEN 47 CM PICC IN THE LEFT BASILIC VEIN. Plan Time Spent: Greater than 30 Minutes
[2017-09-15] MEDS: NORMAL SALINE 10 ML SDV (AFTER EACH USE) IV PRN (14:06)
[2017-09-15] MEDS: ACETAMINOPHEN 325 MG TABLET PO PRN (19:52)
[2017-09-15] MEDS ORDERED: DAPTOMYCIN 1,000 MG in NORMAL SALINE 50 ML IV SCH (21:00)
[2017-09-15] MEDS ORDERED: VANCOMYCIN HCL 1,500 MG in DEXTROSE 5%-WATER 250 ML IV SCH (22:00)
[2017-09-15] MEDS: ASPIRIN 325 MG TABLET PO SCH (22:33)
[2017-09-15] MEDS: SENNOSIDES/DOCUSATE 8.6-50 MG 1 EACH TABLET PO SCH (22:34)
[2017-09-15] MEDS: METOPROLOL SUCCINATE 25 MG TAB.SR.24H PO SCH (22:34)
[2017-09-15] MEDS: LOSARTAN POTASSIUM 50 MG TABLET PO SCH (22:35)
[2017-09-15] MEDS: ATORVASTATIN CALCIUM 10 MG TABLET PO SCH (22:36)
[2017-09-15] MEDS: INSULIN GLARGINE,HUM.REC.ANLOG 1,000 UNIT/10 ML UNIT SUBCUT SCH (22:43)
[2017-09-16 05:03] VITALS: BP 139/88
[2017-09-16] MEDS: GABAPENTIN 300 MG CAPSULE PO SCH (06:21)
[2017-09-16] MEDS: INSULIN LISPRO 100 UNIT/ML 3 ML VIAL SUBCUT SCH (08:57)
[2017-09-16] MEDS ORDERED: (PENDING PHARMACY ID) (Albiglutide [Tanzeum] 30 MG) SQ SCH (10:00)
--- NOTE | 2017-09-16 12:07 | PDOC PROGRESS REPORT ---
Subjective Progress Note for:: 09/16/17 Subjective:: No new issues per nursing. Pt had left prior to my encounter. Physical Exam Vital Signs: Temp Pulse Resp BP Pulse Ox 97.6 F 72 20 139/88 H 98 09/16/17 03:43 09/16/17 03:43 09/16/17 03:43 09/16/17 03:43 09/16/17 03:43 Intake & Output 09/15/17 09/16/17 09/17/17 06:59 06:59 06:59 Intake Total 1360 450 Output Total 3100 1300 Balance -1740 -850 Weight 157 kg 157.7 kg Pt left before encounter. Results Laboratory Results: 09/15/17 08:47 09/15/17 08:47 09/10/17 12:18 Foot - Left Gram Stain - Final Impressions: Foot X-Ray 09/08/17 14:49 IMPRESSION: Amputation with extensive soft tissue changes as described. No definite osteomyelitis is appreciated. Lower Extremity MRI 09/09/17 00:00 IMPRESSION: Abnormal marrow signal in the proximal half of the 5th metatarsal with surrounding phlegmon worrisome for infection and osteomyelitis. Diffuse forefoot cellulitis, large soft tissue ulcer along the lateral forefoot. Guidance Fluoroscopy 09/12/17 00:00 IMPRESSION: SUCCESSFUL PLACEMENT OF A 5 FR DUAL LUMEN 47 CM PICC IN THE LEFT BASILIC VEIN. Interventional Vascular Procedure 09/12/17 00:00 IMPRESSION: SUCCESSFUL PLACEMENT OF A 5 FR DUAL LUMEN 47 CM PICC IN THE LEFT BASILIC VEIN. PICC Line Insertion 09/12/17 00:00 IMPRESSION: SUCCESSFUL PLACEMENT OF A 5 FR DUAL LUMEN 47 CM PICC IN THE LEFT BASILIC VEIN. Assessment & Plan - Diagnosis (1) Diabetic foot ulcer Qualifiers: Diabetic foot ulcer location: toe Diabetes mellitus type: type 2 Laterality: left Non-pressure ulcer stage: with necrosis of muscle Qualified Code(s): E11.621 - Type 2 diabetes mellitus with foot ulcer; L97.523 - Non-pressure chronic ulcer of other part of left foot with necrosis of muscle ; L97.523 - Non-pressure chronic ulcer of other part of left foot with necrosis of muscle; L97.523 - Non-pressure chronic ulcer of other part of left foot with necrosis of muscle; L97.523 - Non-pressure chronic ulcer of other part of left foot with necrosis of muscle Is this a current diagnosis for this admission?: Yes Plan: Secondary to MRSA, enterococcus, VRE, Proteus cellulitis and osteomyelitis of left fourth toe status post transmitted be taken with wound debridement: Will discontinue vancomycin due to patient having VRE. Will place patient on Cubicin. cut out worker has prescription for antibiotic change. Patient stop date for antibiotics is as follows October 24, 2017.. Surgery is planning to place wound VAC. (2) Diabetic neuropathy Qualifiers: Diabetes mellitus type: type 2 Diabetes mellitus complication detail: diabetic polyneuropathy Qualified Code(s): E11.42 - Type 2 diabetes mellitus with diabetic polyneuropathy Is this a current diagnosis for this admission?: Yes (3) Hypernatremia Is this a current diagnosis for this admission?: Yes (4) Hypertension Qualifiers: Hypertension type: essential hypertension Qualified Code(s): I10 - Essential (primary) hypertension Is this a current diagnosis for this admission?: Yes (5) Morbid obesity Is this a current diagnosis for this admission?: Yes (6) Osteomyelitis Qualifiers: Osteomyelitis type: other chronic Osteomyelitis location: foot Laterality : left Qualified Code(s): M86.672 - Other chronic osteomyelitis, left ankle and foot Is this a current diagnosis for this admission?: Yes (7) Type 2 diabetes mellitus Qualifiers: Diabetes mellitus complication status: with diabetic arthropathy Diabetes mellitus complication detail: with neuropathic arthropathy Diabetes mellitus care home insulin use: with intermediate card tender use Qualified Code(s): E11.618 - Type 2 diabetes mellitus with other diabetic arthropathy; Z79.4 - [facility] (current) use of insulin; Z79.4 - [facility]n long term care (current) use of insulin; Z79.4 - [facility] ( current) use of insulin; Z79.4 - [facility] (current) use of insulin Is this a current diagnosis for this admission?: Yes
[2017-09-16] MEDS ORDERED: LEVOFLOXACIN 750 MG/D5W RTU 750 MG/150 ML RTUPB IV ONE (12:28)
--- NOTE | 2017-09-17 19:39 | OPERATIVE REPORT E ---
Operative Report NAME: CHRIS HUNTER : 1950 AGE: 67Y DATE OF SURGERY: ROOM: 212 ADDENDUM: The dimensions of the debrided tissue were approximately 2 x 4 x 2 cm in total mass of subcutaneous tissue debrided sharply with scissors and a #10 blade. DICTATING PHYSICIAN: KARTHIK BUSH M.D. [id number] PHY#: [id number] ID: [id number] JOB#: [id number] ACCT: [id number] cc:KARTHIK BUSH M.D. >
== END 2017-09-16 09:00 | disposition home or self-care (01) | DRG 617 ==
LOC: ER 12:30 → UNDOADMIN 17:19 → EH 17:19 → INTOOBSV 17:40 → EH 17:40 → 2N 20:30 → OBSVTOIN 09-09 13:27
PROVIDERS: ADMIT Internal Medicine; ATTEND Internal Medicine
PROC: 0Y6W0Z0 Detachment at Left 4th Toe, Complete, Open Approach (ICD-10-PCS; principal; 2017-09-10 11:00)
PROC: 0JBR0ZZ Excision of Left Foot Subcutaneous Tissue and Fascia, Open Approach (ICD-10-PCS; 2017-09-12)
PROC: 02HV33Z Insertion of Infusion Device into Superior Vena Cava, Percutaneous Approach (ICD-10-PCS; 2017-09-12)
PROC: B548ZZA Ultrasonography of Superior Vena Cava, Guidance (ICD-10-PCS; 2017-09-12)
PROC: B5181ZA Fluoroscopy of Superior Vena Cava using Low Osmolar Contrast, Guidance (ICD-10-PCS; 2017-09-12)
DX: E11.69 Type 2 diabetes mellitus with other specified complication (principal); L97.525 Non-pressure chronic ulcer of other part of left foot with muscle involvement without evidence of necrosis; M86.672 Other chronic osteomyelitis, left ankle and foot; Z68.43 Body mass index [BMI] 50.0-59.9, adult; E87.0 Hyperosmolality and hypernatremia; R78.81 Bacteremia; L03.116 Cellulitis of left lower limb; E11.621 Type 2 diabetes mellitus with foot ulcer; E11.610 Type 2 diabetes mellitus with diabetic neuropathic arthropathy; E11.42 Type 2 diabetes mellitus with diabetic polyneuropathy; L97.523 Non-pressure chronic ulcer of other part of left foot with necrosis of muscle; L97.524 Non-pressure chronic ulcer of other part of left foot with necrosis of bone; B96.4 Proteus (mirabilis) (morganii) as the cause of diseases classified elsewhere; B96.89 Other specified bacterial agents as the cause of diseases classified elsewhere; B95.7 Other staphylococcus as the cause of diseases classified elsewhere; B96.5 Pseudomonas (aeruginosa) (mallei) (pseudomallei) as the cause of diseases classified elsewhere; Z16.21 Resistance to vancomycin; Z79.4 Long term (current) use of insulin; Z89.422 Acquired absence of other left toe(s); I10 Essential (primary) hypertension; E66.01 Morbid (severe) obesity due to excess calories; E86.0 Dehydration; Z79.899 Other long term (current) drug therapy
CPT/HCPCS: 01480; 36415; 36569; 76937; 77001; 80048; 80053; 80202; 82565; 82962; 83036; 83735; 85025; 85027; 85652; 86140; 87040; 87070; 87075; 87077; 87186; 93005; 93010; 99284; G0378; J0878; J1642; J1815; J2250; J2543; J2704; J3010; J3370; J3490; J7060

== ENCOUNTER → 2017-12-22 | Outpatient (CLI) | payer MEDICARE, OTHER ==
--- NOTE | 2017-12-22 14:13 | RADIOLOGY REPORT (SQ) ---
EXAM DESCRIPTION: FOOT LEFT 2 VIEWS COMPLETED DATE/TIME: 12/22/2017 12:30 pm REASON FOR STUDY: E11.621 TYPE 2 DIABETES MELLITUS WITH FOOT ULCER E11.621 TYPE 2 DIABETES MELLITUS WITH FOOT ULCER COMPARISON: 10/05/2017. NUMBER OF VIEWS: Two views. TECHNIQUE: AP and lateral without weight bearing radiographic images acquired of the left foot. LIMITATIONS: External artifact. FINDINGS: MINERALIZATION: Normal. BONES: No acute fracture or dislocation. Stable surgical changes of transmetatarsal amputation of th e 4th and 5th toe with chronic periosteal changes particularly of the 5th metatarsal. No worrisome b one lesions. No significant osteophytes. JOINTS: No erosions. No alyse-articular osteopenia. No chondrocalcinosis. SOFT TISSUES: No swelling. No calcifications. OTHER: No other significant finding. IMPRESSION: STABLE CHRONIC CHANGES RELATED TO AMPUTATION OF THE 4TH AND 5TH TOE. NO ACUTE FINDINGS. TECHNICAL DOCUMENTATION: JOB ID: [id number] [employer]- All Rights Reserved
== END ==
LOC: RAD 11:53
PROVIDERS: ATTEND Preventive Medicine Undersea and Hyperbaric Medicine
DX: E11.621 Type 2 diabetes mellitus with foot ulcer (principal); L97.522 Non-pressure chronic ulcer of other part of left foot with fat layer exposed

== ENCOUNTER → 2018-01-12 | Outpatient (CLI) | payer MEDICARE, OTHER ==
--- NOTE | 2018-01-12 13:29 | RADIOLOGY REPORT (SQ) ---
EXAM DESCRIPTION: FOOT LEFT COMPLETE COMPLETED DATE/TIME: 01/12/2018 12:40 pm REASON FOR STUDY: NON PRESSURE ULCER LT HEEL L97.422 NON-PRS CHR ULCER OF LEFT HEEL AND MIDFOOT W F AT LAY COMPARISON: 12/23/2017 NUMBER OF VIEWS: Three views. TECHNIQUE: AP, lateral and oblique radiographic images acquired of the left foot. LIMITATIONS: Study is limited due to overlying cast. FINDINGS: MINERALIZATION: Normal. BONES: The previously described postsurgical changes involving amputation of the 4th and 5th digits a t the level of the distal metatarsals with chronic periosteal changes appears stable. There is no pl ain film evidence for bony involvement by osteomyelitis. JOINTS: No effusions. SOFT TISSUES: No soft tissue swelling. A calcific appearing density is identified in the soft tissue s inferior to the calcaneus in the lateral projection which appears increase as compared to the previ ous study. OTHER: No other significant finding. IMPRESSION: Somewhat limited study as noted above. Stable bony appearance as compared to the previo us study. There is no plain film evidence for bony involvement by osteomyelitis. Apparent soft tiss ue calcification inferior to the calcaneus which appears increase as compared to the previous study. Clinical correlation is recommended. TECHNICAL DOCUMENTATION: JOB ID: [id number] [email or web address]- All Rights Reserved
== END ==
LOC: LAB 11:58
PROVIDERS: ATTEND Preventive Medicine Undersea and Hyperbaric Medicine
DX: L97.422 Non-pressure chronic ulcer of left heel and midfoot with fat layer exposed (principal)

== ENCOUNTER → 2018-07-27 | Outpatient (CLI) | payer MEDICARE, OTHER ==
--- NOTE | 2018-07-27 11:20 | RADIOLOGY REPORT (SQ) ---
EXAM DESCRIPTION: FOOT LEFT COMPLETE COMPLETED DATE/TIME: 07/27/2018 11:02 am REASON FOR STUDY: NON-PRS CHRONIC ULCER OTH PRT LEFT FOOT W FAT LAYER EXPOSED L97.522 NON-PRS CHRON IC ULCER OTH PRT LEFT FOOT W FAT LAYER COMPARISON: 10/05/2017, 12/22/2017, 01/12/2018 left foot films NUMBER OF VIEWS: Three views. TECHNIQUE: AP, lateral and oblique radiographic images acquired of the left foot. LIMITATIONS: Artifact from cast FINDINGS: MINERALIZATION: Osteopenic BONES: Post transmetatarsal amputation at the 4th and 5th metatarsals. There is periosteal new bone along the osteotomy sites, similar compared to previous exams. No aggressive demineralization worris ome for active osteomyelitis. No fracture. JOINTS: No effusions. SOFT TISSUES: Plantar ulcer along the midfoot OTHER: No other significant finding. IMPRESSION: Plantar ulcer along the midfoot. Stable bony appearance compared to 01/12/2018 and 2017. TECHNICAL DOCUMENTATION: JOB ID: [id number] [employer]- All Rights Reserved Reading location - IP/workstation name: [email or web address]
[2018-07-27 11:55] LABS: ABSOLUTE EOSINOPHILS # (AUTO) 0.3 10^3/uL (0.0-0.6); ABSOLUTE LYMPHOCYTES (AUTO) 3.4 10^3/uL (0.5-4.7); ABSOLUTE MONOCYTES (AUTO) 0.8 10^3/uL (0.1-1.4); ABSOLUTE NEUT (AUTO) 3.6 10^3/uL (1.7-8.2); BASOPHILS % (AUTO) 0.5 % (0-2); EOSINOPHILS % (AUTO) 3.9 % (0-6); HEMATOCRIT 47.2 % (37.9-51.0); HEMOGLOBIN 15.8 g/dL (13.5-17.0); LYMPHOCYTES % (AUTO) 41.6 % (13-45); MEAN CORPUSCULAR HEMOGLOBIN 32.4 pg (27.0-33.4); MEAN CORPUSCULAR HGB CONC 33.4 g/dL (32.0-36.0); MEAN CORPUSCULAR VOLUME 97 fl (80-97); MONOCYTES % (AUTO) 9.3 % (3-13); PLATELET COUNT 178 10^3/uL (150-450); RED BLOOD COUNT 4.86 10^6/uL (4.35-5.55); SEGMENTED NEUTROPHILS % (AUTO) 44.7 % (42-78); TOTAL CELLS COUNTED % (AUTO) 100 %; WHITE BLOOD COUNT 8.1 10^3/uL (4.0-10.5)
[2018-07-27 12:21] LABS: ALANINE AMINOTRANSFERASE 25 U/L (21-72); ALBUMIN 4.2 g/dL (3.5-5.0); ALKALINE PHOSPHATASE 92 U/L (38-126); ANION GAP 11 (5-19); ASPARTATE AMINO TRANSFERASE 28 U/L (17-59); BILIRUBIN,DIRECT 0.4 mg/dL (0.0-0.4); BILIRUBIN,TOTAL 0.9 mg/dL (0.2-1.3); BLOOD UREA NITROGEN 19 mg/dL (7-20); C-REACTIVE PROTEIN 6.9 mg/L (<10.0); CARBON DIOXIDE 27 mmol/L (22-30); CHLORIDE 107 mmol/L (98-107); GLUCOSE 207 mg/dL (75-110); POTASSIUM 4.9 mmol/L (3.6-5.0); SODIUM 145.4 mmol/L (137-145); TOTAL PROTEIN 7.9 g/dL (6.3-8.2)
[2018-07-27 12:34] LABS: ERYTHROCYTE SEDIMENTATION RATE 9 mm/hr (0-20)
== END ==
LOC: RAD 10:36
PROVIDERS: ATTEND Preventive Medicine Undersea and Hyperbaric Medicine
DX: E11.621 Type 2 diabetes mellitus with foot ulcer (principal); L97.522 Non-pressure chronic ulcer of other part of left foot with fat layer exposed
CPT/HCPCS: 36415; 80053; 83036; 85025; 85652; 86140

== ENCOUNTER → 2018-09-21 | Outpatient (CLI) | payer MEDICARE, OTHER ==
--- NOTE | 2018-09-21 11:40 | RADIOLOGY REPORT (SQ) ---
EXAM DESCRIPTION: FOOT LEFT COMPLETE COMPLETED DATE/TIME: 09/21/2018 11:12 am REASON FOR STUDY: NON-PRESSURE CHRONIC ULCER OF LEFT CALF W FAT LAYER EXPOSED (L97.222) L97.222 NON -PRESSURE CHRONIC ULCER OF LEFT CALF W FAT LAYER COMPARISON: Left foot films 09/08/2017, 10/05/2017, 12/22/2017, 01/12/2018, 07/27/2018 NUMBER OF VIEWS: Three views. TECHNIQUE: AP, lateral and oblique radiographic images acquired of the left foot. LIMITATIONS: Artifact from fiberglass splint FINDINGS: MINERALIZATION: Osteopenic BONES: Post remote prior 4th and 5th transmetatarsal amputations. Bony remodeling along the 4th and 5th metatarsals with new bone formation, similar compared to 07/27/2018. No new areas of periosteal n ew bone or aggressive bony demineralization worrisome for osteomyelitis. JOINTS: No high-grade joint space narrowing. SOFT TISSUES: No soft tissue swelling. No foreign body. OTHER: No other significant finding. IMPRESSION: Benign bony remodeling along the 4th and 5th metatarsals TECHNICAL DOCUMENTATION: JOB ID: [id number]- All Rights Reserved Reading location - IP/workstation name: [email or web address]
[2018-09-21 11:44] LABS: ABSOLUTE BASOPHILS # (AUTO) 0.1 10^3/uL (0.0-0.2); ABSOLUTE EOSINOPHILS # (AUTO) 0.5 10^3/uL (0.0-0.6); ABSOLUTE LYMPHOCYTES (AUTO) 3.3 10^3/uL (0.5-4.7); ABSOLUTE MONOCYTES (AUTO) 0.9 10^3/uL (0.1-1.4); ABSOLUTE NEUT (AUTO) 4.4 10^3/uL (1.7-8.2); BASOPHILS % (AUTO) 0.8 % (0-2); EOSINOPHILS % (AUTO) 5.1 % (0-6); HEMATOCRIT 50.1 % (37.9-51.0); HEMOGLOBIN 16.6 g/dL (13.5-17.0); LYMPHOCYTES % (AUTO) 36.2 % (13-45); MEAN CORPUSCULAR HEMOGLOBIN 33.4 pg (27.0-33.4); MEAN CORPUSCULAR HGB CONC 33.2 g/dL (32.0-36.0); MEAN CORPUSCULAR VOLUME 101 fl (80-97); MONOCYTES % (AUTO) 9.4 % (3-13); PLATELET COUNT 175 10^3/uL (150-450); RED BLOOD COUNT 4.97 10^6/uL (4.35-5.55); RED CELL DISTRIBUTION WIDTH 16.4 % (11.5-14.0); SEGMENTED NEUTROPHILS % (AUTO) 48.5 % (42-78); TOTAL CELLS COUNTED % (AUTO) 100 %; WHITE BLOOD COUNT 9.1 10^3/uL (4.0-10.5)
[2018-09-21 12:17] LABS: ALANINE AMINOTRANSFERASE 21 U/L (21-72); ALBUMIN 4.1 g/dL (3.5-5.0); ALKALINE PHOSPHATASE 113 U/L (38-126); ANION GAP 11 (5-19); ASPARTATE AMINO TRANSFERASE 30 U/L (17-59); BILIRUBIN,DIRECT 0.3 mg/dL (0.0-0.4); BILIRUBIN,TOTAL 0.8 mg/dL (0.2-1.3); BLOOD UREA NITROGEN 12 mg/dL (7-20); C-REACTIVE PROTEIN 6.2 mg/L (<10.0); CALCIUM 10.1 mg/dL (8.4-10.2); CARBON DIOXIDE 28 mmol/L (22-30); CHLORIDE 106 mmol/L (98-107); GLUCOSE 138 mg/dL (75-110); POTASSIUM 4.6 mmol/L (3.6-5.0); SODIUM 144.9 mmol/L (137-145); TOTAL PROTEIN 7.8 g/dL (6.3-8.2)
[2018-09-21 12:25] LABS: ERYTHROCYTE SEDIMENTATION RATE 8 mm/hr (0-20)
== END ==
LOC: RAD 10:48
PROVIDERS: ATTEND Preventive Medicine Undersea and Hyperbaric Medicine
DX: E11.621 Type 2 diabetes mellitus with foot ulcer (principal); L97.222 Non-pressure chronic ulcer of left calf with fat layer exposed
CPT/HCPCS: 36415; 80053; 83036; 85025; 85652; 86140

== ENCOUNTER → 2018-11-16 | Outpatient (CLI) | payer MEDICARE, OTHER ==
[2018-11-16 11:16] LABS: ABSOLUTE BASOPHILS # (AUTO) 0.1 10^3/uL (0.0-0.2); ABSOLUTE EOSINOPHILS # (AUTO) 0.3 10^3/uL (0.0-0.6); ABSOLUTE LYMPHOCYTES (AUTO) 2.6 10^3/uL (0.5-4.7); ABSOLUTE MONOCYTES (AUTO) 0.6 10^3/uL (0.1-1.4); ABSOLUTE NEUT (AUTO) 4.1 10^3/uL (1.7-8.2); BASOPHILS % (AUTO) 0.9 % (0-2); EOSINOPHILS % (AUTO) 4.4 % (0-6); HEMATOCRIT 47.3 % (37.9-51.0); HEMOGLOBIN 15.6 g/dL (13.5-17.0); LYMPHOCYTES % (AUTO) 33.9 % (13-45); MEAN CORPUSCULAR HEMOGLOBIN 33.3 pg (27.0-33.4); MEAN CORPUSCULAR VOLUME 101 fl (80-97); MONOCYTES % (AUTO) 7.8 % (3-13); PLATELET COUNT 202 10^3/uL (150-450); RED BLOOD COUNT 4.69 10^6/uL (4.35-5.55); RED CELL DISTRIBUTION WIDTH 15.1 % (11.5-14.0); TOTAL CELLS COUNTED % (AUTO) 100 %; WHITE BLOOD COUNT 7.7 10^3/uL (4.0-10.5)
[2018-11-16 11:29] LABS: ALANINE AMINOTRANSFERASE 19 U/L (21-72); ALBUMIN 3.9 g/dL (3.5-5.0); ALKALINE PHOSPHATASE 87 U/L (38-126); ANION GAP 8 (5-19); ASPARTATE AMINO TRANSFERASE 35 U/L (17-59); BILIRUBIN,DIRECT 0.3 mg/dL (0.0-0.4); BILIRUBIN,TOTAL 0.7 mg/dL (0.2-1.3); BLOOD UREA NITROGEN 14 mg/dL (7-20); C-REACTIVE PROTEIN 8.3 mg/L (<10.0); CARBON DIOXIDE 28 mmol/L (22-30); CHLORIDE 106 mmol/L (98-107); GLUCOSE 174 mg/dL (75-110); POTASSIUM 4.2 mmol/L (3.6-5.0); SODIUM 142.4 mmol/L (137-145); TOTAL PROTEIN 7.2 g/dL (6.3-8.2)
[2018-11-16 11:53] LABS: ERYTHROCYTE SEDIMENTATION RATE 15 mm/hr (0-20)
--- NOTE | 2018-11-16 12:53 | RADIOLOGY REPORT (SQ) ---
EXAM DESCRIPTION: FOOT LEFT COMPLETE COMPLETED DATE/TIME: 11/16/2018 10:51 am REASON FOR STUDY: NON-PRS CHRONIC ULCER OTH PRT LEFT FOOT W FAT LAYER EXPOSED (L97.522) L97.522 NON -PRS CHRONIC ULCER OTH PRT LEFT FOOT W FAT LAYER L97.222 NON-PRESSURE CHRONIC ULCER OF LEFT CALF W FAT LAYER E11.621 TYPE 2 DIABETES MELLITUS WITH FOOT ULCER COMPARISON: 09/21/2018 and 07/27/2018. NUMBER OF VIEWS: Three views. TECHNIQUE: AP, lateral and oblique radiographic images acquired of the left foot. LIMITATIONS: None. FINDINGS: MINERALIZATION: Normal. BONES: No acute fracture or dislocation. Stable surgical changes with healing post metatarsal amputa tion of the 4th and 5th toe. No worrisome bone lesions. JOINTS: No effusions. SOFT TISSUES: No soft tissue swelling. No foreign body. OTHER: No other significant finding. IMPRESSION: STABLE SURGICAL CHANGES. NO ACUTE FINDINGS. TECHNICAL DOCUMENTATION: JOB ID: [id number] [employer]- All Rights Reserved Reading location - IP/workstation name: [email or web address]
== END ==
LOC: RAD 10:26
PROVIDERS: ATTEND Preventive Medicine Undersea and Hyperbaric Medicine
DX: L97.522 Non-pressure chronic ulcer of other part of left foot with fat layer exposed (principal); L97.222 Non-pressure chronic ulcer of left calf with fat layer exposed; E11.621 Type 2 diabetes mellitus with foot ulcer
CPT/HCPCS: 36415; 80053; 83036; 85025; 85652; 86140

== ENCOUNTER → 2018-12-14 | Outpatient (CLI) | payer MEDICARE, OTHER ==
--- NOTE | 2018-12-14 12:47 | RADIOLOGY REPORT (SQ) ---
EXAM DESCRIPTION: FOOT LEFT COMPLETE COMPLETED DATE/TIME: 12/14/2018 10:36 am REASON FOR STUDY: NON-PRS CHRONIC ULCER OTH PRT LEFT FOOT W FAT LAYER EXPOSED (L97.522) L97.522 NON -PRS CHRONIC ULCER OTH PRT LEFT FOOT W FAT LAYER COMPARISON: 11/16/2018 NUMBER OF VIEWS: Three views. TECHNIQUE: AP, lateral and oblique radiographic images acquired of the left foot. LIMITATIONS: None. FINDINGS: MINERALIZATION: Normal. BONES: Surgical changes with partial amputation of the 4th and 5th rays. Chronic periosteal thickeni ng of the proximal 5th metatarsal. No erosive changes to suggest osteomyelitis. Interval acute fracture of the proximal phalanx of the 1st digit. JOINTS: No effusions. SOFT TISSUES: No soft tissue swelling. No foreign body. OTHER: No other significant finding. IMPRESSION: Stable appearance of the 4th and 5th rays. Interval acute fracture of the proximal phalanx of the 1st digit. Extension into the metatarsal phal angeal joint. TECHNICAL DOCUMENTATION: JOB ID: [id number] [employer]- All Rights Reserved Reading location - IP/workstation name: [email or web address]
== END ==
LOC: RAD 09:51
PROVIDERS: ATTEND Preventive Medicine Undersea and Hyperbaric Medicine
DX: L97.522 Non-pressure chronic ulcer of other part of left foot with fat layer exposed (principal)

== ENCOUNTER → 2019-01-18 | Outpatient (CLI) | payer MEDICARE, OTHER ==
[2019-01-18 11:27] LABS: ABSOLUTE BASOPHILS # (AUTO) 0.1 10^3/uL (0.0-0.2); ABSOLUTE EOSINOPHILS # (AUTO) 0.2 10^3/uL (0.0-0.6); ABSOLUTE LYMPHOCYTES (AUTO) 2.7 10^3/uL (0.5-4.7); ABSOLUTE MONOCYTES (AUTO) 0.8 10^3/uL (0.1-1.4); ABSOLUTE NEUT (AUTO) 4.3 10^3/uL (1.7-8.2); BASOPHILS % (AUTO) 0.7 % (0-2); EOSINOPHILS % (AUTO) 2.9 % (0-6); HEMATOCRIT 43.6 % (37.9-51.0); HEMOGLOBIN 14.6 g/dL (13.5-17.0); LYMPHOCYTES % (AUTO) 33.4 % (13-45); MEAN CORPUSCULAR HEMOGLOBIN 32.2 pg (27.0-33.4); MEAN CORPUSCULAR HGB CONC 33.4 g/dL (32.0-36.0); MEAN CORPUSCULAR VOLUME 96 fl (80-97); MONOCYTES % (AUTO) 9.8 % (3-13); PLATELET COUNT 251 10^3/uL (150-450); RED BLOOD COUNT 4.52 10^6/uL (4.35-5.55); RED CELL DISTRIBUTION WIDTH 13.9 % (11.5-14.0); SEGMENTED NEUTROPHILS % (AUTO) 53.2 % (42-78); TOTAL CELLS COUNTED % (AUTO) 100 %; WHITE BLOOD COUNT 8.1 10^3/uL (4.0-10.5)
[2019-01-18 12:00] LABS: ALANINE AMINOTRANSFERASE 16 U/L (21-72); ALBUMIN 4.1 g/dL (3.5-5.0); ALKALINE PHOSPHATASE 113 U/L (38-126); ANION GAP 9 (5-19); ASPARTATE AMINO TRANSFERASE 22 U/L (17-59); BILIRUBIN,DIRECT 0.2 mg/dL (0.0-0.4); BILIRUBIN,TOTAL 0.6 mg/dL (0.2-1.3); BLOOD UREA NITROGEN 16 mg/dL (7-20); C-REACTIVE PROTEIN 30.1 mg/L (<10.0); CALCIUM 9.8 mg/dL (8.4-10.2); CARBON DIOXIDE 28 mmol/L (22-30); CHLORIDE 104 mmol/L (98-107); GLUCOSE 209 mg/dL (75-110); POTASSIUM 4.8 mmol/L (3.6-5.0); SODIUM 141.2 mmol/L (137-145); TOTAL PROTEIN 7.3 g/dL (6.3-8.2)
[2019-01-18 12:03] LABS: ERYTHROCYTE SEDIMENTATION RATE 40 mm/hr (0-20)
--- NOTE | 2019-01-18 12:58 | RADIOLOGY REPORT (SQ) ---
EXAM DESCRIPTION: FOOT LEFT COMPLETE COMPLETED DATE/TIME: 01/18/2019 10:52 am REASON FOR STUDY: NON-PRS CHRONIC ULCER OTH PRT LEFT FOOT W FAT LAYER EXPOSED (L97.522) L97.522 NON -PRS CHRONIC ULCER OTH PRT LEFT FOOT W FAT LAYER COMPARISON: 12/14/2018 NUMBER OF VIEWS: Three views. TECHNIQUE: AP, lateral and oblique radiographic images acquired of the left foot. LIMITATIONS: None. FINDINGS: MINERALIZATION: Normal. BONES: Partial amputation of the 4th and 5th rays. Similar to previous. Healing fracture of the pro ximal phalanx of the great toe. No significant displacement. JOINTS: No effusions. SOFT TISSUES: Soft tissue ulcer along the plantar lateral surface of the foot. Contains radiodensity . Question packing. OTHER: No other significant finding. IMPRESSION: New soft tissue ulcer lateral plantar surface of the foot along the 5th metatarsal. Chronic surgery of the 4th and 5th metatarsals. Healing fracture of the proximal phalanx of the great toe. TECHNICAL DOCUMENTATION: JOB ID: [id number] [employer]- All Rights Reserved Reading location - IP/workstation name: [email or web address]
== END ==
LOC: RAD 10:10
PROVIDERS: ATTEND Preventive Medicine Undersea and Hyperbaric Medicine
DX: E11.621 Type 2 diabetes mellitus with foot ulcer (principal); L97.522 Non-pressure chronic ulcer of other part of left foot with fat layer exposed
CPT/HCPCS: 36415; 80053; 83036; 85025; 85652; 86140

== ENCOUNTER → 2019-02-08 | Outpatient (CLI) | payer MEDICARE, OTHER ==
[2019-02-08 12:24] LABS: ABSOLUTE EOSINOPHILS # (AUTO) 0.3 10^3/uL (0.0-0.6); ABSOLUTE MONOCYTES (AUTO) 0.9 10^3/uL (0.1-1.4); ABSOLUTE NEUT (AUTO) 4.8 10^3/uL (1.7-8.2); BASOPHILS % (AUTO) 0.5 % (0-2); HEMATOCRIT 44.9 % (37.9-51.0); HEMOGLOBIN 14.9 g/dL (13.5-17.0); LYMPHOCYTES % (AUTO) 33.7 % (13-45); MEAN CORPUSCULAR HEMOGLOBIN 31.7 pg (27.0-33.4); MEAN CORPUSCULAR HGB CONC 33.2 g/dL (32.0-36.0); MEAN CORPUSCULAR VOLUME 96 fl (80-97); MONOCYTES % (AUTO) 9.5 % (3-13); PLATELET COUNT 209 10^3/uL (150-450); RED BLOOD COUNT 4.71 10^6/uL (4.35-5.55); RED CELL DISTRIBUTION WIDTH 14.6 % (11.5-14.0); SEGMENTED NEUTROPHILS % (AUTO) 53.3 % (42-78); TOTAL CELLS COUNTED % (AUTO) 100 %
[2019-02-08 12:48] LABS: ALANINE AMINOTRANSFERASE 15 U/L (21-72); ALBUMIN 4.2 g/dL (3.5-5.0); ALKALINE PHOSPHATASE 115 U/L (38-126); ANION GAP 9 (5-19); ASPARTATE AMINO TRANSFERASE 18 U/L (17-59); BILIRUBIN,DIRECT 0.3 mg/dL (0.0-0.4); BILIRUBIN,TOTAL 0.7 mg/dL (0.2-1.3); BLOOD UREA NITROGEN 12 mg/dL (7-20); CALCIUM 9.9 mg/dL (8.4-10.2); CARBON DIOXIDE 25 mmol/L (22-30); CHLORIDE 110 mmol/L (98-107); GLUCOSE 114 mg/dL (75-110); POTASSIUM 4.2 mmol/L (3.6-5.0); SODIUM 144.2 mmol/L (137-145); TOTAL PROTEIN 7.4 g/dL (6.3-8.2)
[2019-02-08 13:02] LABS: ERYTHROCYTE SEDIMENTATION RATE 19 mm/hr (0-20)
--- NOTE | 2019-02-08 14:03 | RADIOLOGY REPORT (SQ) ---
EXAM DESCRIPTION: FOOT LEFT COMPLETE COMPLETED DATE/TIME: 02/08/2019 12:01 pm REASON FOR STUDY: NON-PRS CHRONIC ULCER OTH PRT LEFT FOOT W FAT LAYER EXPOSED (L97.522) L97.522 NON -PRS CHRONIC ULCER OTH PRT LEFT FOOT W FAT LAYER E11.621 TYPE 2 DIABETES MELLITUS WITH FOOT ULCER COMPARISON: None. NUMBER OF VIEWS: Three views. TECHNIQUE: AP, lateral and oblique radiographic images acquired of the left foot. LIMITATIONS: None. FINDINGS: MINERALIZATION: Normal. BONES: 4th and 5th ray amputations. Healing fracture of the 1st proximal phalanx. No evidence of os teomyelitis. JOINTS: No effusions. SOFT TISSUES: Soft tissue ulcer on the plantar aspect of the foot laterally. OTHER: No other significant finding. IMPRESSION: No evidence of osteomyelitis. Findings as described. TECHNICAL DOCUMENTATION: JOB ID: [id number] [employer]- All Rights Reserved Reading location - IP/workstation name: [email or web address]
== END ==
LOC: RAD 11:08
PROVIDERS: ATTEND Preventive Medicine Undersea and Hyperbaric Medicine
DX: E11.621 Type 2 diabetes mellitus with foot ulcer (principal); L97.522 Non-pressure chronic ulcer of other part of left foot with fat layer exposed
CPT/HCPCS: 36415; 80053; 83036; 85025; 85652; 86140

== ENCOUNTER → 2019-04-04 | Outpatient (CLI) | payer MEDICARE, OTHER ==
[2019-04-04 11:21] LABS: ABSOLUTE BASOPHILS # (AUTO) 0.1 10^3/uL (0.0-0.2); ABSOLUTE EOSINOPHILS # (AUTO) 0.3 10^3/uL (0.0-0.6); ABSOLUTE LYMPHOCYTES (AUTO) 2.8 10^3/uL (0.5-4.7); ABSOLUTE MONOCYTES (AUTO) 0.7 10^3/uL (0.1-1.4); ABSOLUTE NEUT (AUTO) 4.3 10^3/uL (1.7-8.2); BASOPHILS % (AUTO) 0.7 % (0-2); EOSINOPHILS % (AUTO) 3.5 % (0-6); HEMATOCRIT 49.6 % (37.9-51.0); HEMOGLOBIN 16.3 g/dL (13.5-17.0); LYMPHOCYTES % (AUTO) 34.5 % (13-45); MEAN CORPUSCULAR HEMOGLOBIN 30.8 pg (27.0-33.4); MEAN CORPUSCULAR VOLUME 93 fl (80-97); MONOCYTES % (AUTO) 8.9 % (3-13); PLATELET COUNT 199 10^3/uL (150-450); RED BLOOD COUNT 5.31 10^6/uL (4.35-5.55); RED CELL DISTRIBUTION WIDTH 15.7 % (11.5-14.0); SEGMENTED NEUTROPHILS % (AUTO) 52.4 % (42-78); TOTAL CELLS COUNTED % (AUTO) 100 %; WHITE BLOOD COUNT 8.2 10^3/uL (4.0-10.5)
--- NOTE | 2019-04-04 11:25 | RADIOLOGY REPORT (SQ) ---
EXAM DESCRIPTION: FOOT LEFT COMPLETE COMPLETED DATE/TIME: 04/04/2019 11:00 am REASON FOR STUDY: NPCU OF OTHER PART OF LEFT FOOT W/ FAT LAYER EXPOSED (L97.522) L97.522 NON-PRS CH RONIC ULCER OTH PRT LEFT FOOT W FAT LAYER COMPARISON: 02/08/2019 NUMBER OF VIEWS: Three views. TECHNIQUE: AP, lateral and oblique radiographic images acquired of the left foot. LIMITATIONS: Splint material obscures fine bony detail. FINDINGS: MINERALIZATION: Decreased. BONES: No acute bony abnormality. Postsurgical changes from 4th and 5th mid metatarsal and phalangea l amputation. No new bony sclerosis or erosions. JOINTS: No large effusion. Degenerative changes at the midfoot with osteophytosis and joint space lo ss. Additional degenerative changes at the ankle with osteophytosis, subchondral sclerosis joint spa ce loss. SOFT TISSUES: Mild soft tissue swelling about the lateral foot. No radiopaque foreign body. OTHER: No other significant finding. IMPRESSION: Prior 4th and 5th mid metatarsal amputation with additional stable chronic changes as ab ove. No acute bony abnormality or definitive findings of osteomyelitis. TECHNICAL DOCUMENTATION: JOB ID: [id number] [employer] All Rights Reserved Reading location - IP/workstation name: [email or web address]
[2019-04-04 11:44] LABS: ALANINE AMINOTRANSFERASE 20 U/L (21-72); ALBUMIN 4.1 g/dL (3.5-5.0); ALKALINE PHOSPHATASE 106 U/L (38-126); ANION GAP 11 (5-19); ASPARTATE AMINO TRANSFERASE 25 U/L (17-59); BILIRUBIN,DIRECT 0.2 mg/dL (0.0-0.4); BLOOD UREA NITROGEN 14 mg/dL (7-20); C-REACTIVE PROTEIN 6.2 mg/L (<10.0); CALCIUM 9.9 mg/dL (8.4-10.2); CARBON DIOXIDE 25 mmol/L (22-30); CHLORIDE 106 mmol/L (98-107); GLUCOSE 152 mg/dL (75-110); POTASSIUM 4.6 mmol/L (3.6-5.0); SODIUM 141.5 mmol/L (137-145); TOTAL PROTEIN 7.7 g/dL (6.3-8.2)
[2019-04-04 12:00] LABS: ERYTHROCYTE SEDIMENTATION RATE 7 mm/hr (0-20)
== END ==
LOC: RAD 10:13
PROVIDERS: ATTEND Nurse Practitioner Family
DX: L97.522 Non-pressure chronic ulcer of other part of left foot with fat layer exposed (principal)
CPT/HCPCS: 36415; 80053; 85025; 85652; 86140

== ENCOUNTER → 2019-06-14 | Outpatient (CLI) | payer MEDICARE, OTHER ==
[2019-06-14 11:09] LABS: ABSOLUTE BASOPHILS # (AUTO) 0.1 10^3/uL (0.0-0.2); ABSOLUTE EOSINOPHILS # (AUTO) 0.4 10^3/uL (0.0-0.6); ABSOLUTE LYMPHOCYTES (AUTO) 2.7 10^3/uL (0.5-4.7); ABSOLUTE MONOCYTES (AUTO) 0.8 10^3/uL (0.1-1.4); EOSINOPHILS % (AUTO) 4.2 % (0-6); HEMATOCRIT 47.4 % (37.9-51.0); HEMOGLOBIN 15.6 g/dL (13.5-17.0); LYMPHOCYTES % (AUTO) 30.1 % (13-45); MEAN CORPUSCULAR HEMOGLOBIN 31.3 pg (27.0-33.4); MEAN CORPUSCULAR HGB CONC 32.9 g/dL (32.0-36.0); MEAN CORPUSCULAR VOLUME 95 fl (80-97); MONOCYTES % (AUTO) 9.4 % (3-13); PLATELET COUNT 239 10^3/uL (150-450); RED BLOOD COUNT 4.98 10^6/uL (4.35-5.55); RED CELL DISTRIBUTION WIDTH 18.3 % (11.5-14.0); SEGMENTED NEUTROPHILS % (AUTO) 55.3 % (42-78); TOTAL CELLS COUNTED % (AUTO) 100 %
[2019-06-14 11:30] LABS: ALANINE AMINOTRANSFERASE 21 U/L (21-72); ALBUMIN 4.1 g/dL (3.5-5.0); ALKALINE PHOSPHATASE 114 U/L (38-126); ANION GAP 9 (5-19); ASPARTATE AMINO TRANSFERASE 24 U/L (17-59); BILIRUBIN,DIRECT 0.3 mg/dL (0.0-0.4); BILIRUBIN,TOTAL 0.9 mg/dL (0.2-1.3); BLOOD UREA NITROGEN 14 mg/dL (7-20); C-REACTIVE PROTEIN 7.7 mg/L (<10.0); CALCIUM 9.4 mg/dL (8.4-10.2); CARBON DIOXIDE 26 mmol/L (22-30); CHLORIDE 107 mmol/L (98-107); GLUCOSE 206 mg/dL (75-110); POTASSIUM 4.4 mmol/L (3.6-5.0); SODIUM 142.1 mmol/L (137-145); TOTAL PROTEIN 7.4 g/dL (6.3-8.2)
[2019-06-14 11:53] LABS: ERYTHROCYTE SEDIMENTATION RATE 12 mm/hr (0-20)
--- NOTE | 2019-06-14 14:15 | RADIOLOGY REPORT (SQ) ---
EXAM DESCRIPTION: FOOT LEFT COMPLETE COMPLETED DATE/TIME: 06/14/2019 11:17 am REASON FOR STUDY: NON-PRS CHRONIC ULCER OTH PRT LEFT FOOT W FAT LAYER EXPOSED(L97.522) L97.522 NON- PRS CHRONIC ULCER OTH PRT LEFT FOOT W FAT LAYER E11.621 TYPE 2 DIABETES MELLITUS WITH FOOT ULCER COMPARISON: 01/18/2019, 02/08/2019, 04/04/2019 NUMBER OF VIEWS: Three views. TECHNIQUE: AP, lateral and oblique radiographic images acquired of the left foot. LIMITATIONS: None. FINDINGS: MINERALIZATION: Overall bone density is normal BONES: Post 4th and 5th transmetatarsal amputations of the toes. There is bony remodeling at the amp utation site and throughout the base of the 5th metatarsal, similar compared to previous studies. JOINTS: No malalignment or Charcot foot. SOFT TISSUES: Diffuse forefoot soft tissue swelling. Radiopaque ointment in the dorsal and lateral f oot ulcer. OTHER: No other significant finding. IMPRESSION: Stable appearance compared to 04/04/2019 TECHNICAL DOCUMENTATION: JOB ID: [id number] [employer]- All Rights Reserved Reading location - IP/workstation name: [email or web address]
== END ==
LOC: LAB 10:38
PROVIDERS: ATTEND Preventive Medicine Undersea and Hyperbaric Medicine
DX: E11.621 Type 2 diabetes mellitus with foot ulcer (principal); L97.522 Non-pressure chronic ulcer of other part of left foot with fat layer exposed
CPT/HCPCS: 36415; 80053; 83036; 85025; 85652; 86140

== ENCOUNTER 2019-07-23 06:30 | Day surgery (SDC) | payer MEDICARE, OTHER ==
[~2019-07-23 06:30] MED LIST: CEFAZOLIN 1 GM/D5W RTU 1 GM/50 ML RTUPB IV PRN; DEXTROSE 5%-1/2 NORMAL SALINE 1,000 ML IV PRN; DIAZEPAM 5 MG TABLET PO PRN; OXYCODONE-ACETAMINOPHEN 5-325 MG TABLET PO PRN
[2019-07-23 07:33] LABS: HEMOGLOBIN 13.5 g/dL (13.5-17.0); MEAN CORPUSCULAR HEMOGLOBIN 31.1 pg (27.0-33.4); MEAN CORPUSCULAR HGB CONC 32.8 g/dL (32.0-36.0); MEAN CORPUSCULAR VOLUME 95 fl (80-97); PLATELET COUNT 335 10^3/uL (150-450); RED BLOOD COUNT 4.33 10^6/uL (4.35-5.55); RED CELL DISTRIBUTION WIDTH 16.1 % (11.5-14.0); WHITE BLOOD COUNT 10.9 10^3/uL (4.0-10.5)
[2019-07-23] MEDS ORDERED: OXYCODONE-ACETAMINOPHEN 5-325 MG TABLET ONE (07:37)
[2019-07-23] MEDS ORDERED: DIAZEPAM 5 MG TABLET ONE (07:37)
[2019-07-23] MEDS ORDERED: CEFAZOLIN 1 GM/D5W RTU 1 GM/50 ML RTUPB IV ONE (07:37)
[2019-07-23 07:53] LABS: ANION GAP 9 (5-19); BLOOD UREA NITROGEN 15 mg/dL (7-20); CALCIUM 9.7 mg/dL (8.4-10.2); CARBON DIOXIDE 27 mmol/L (22-30); CHLORIDE 105 mmol/L (98-107); GLUCOSE 74 mg/dL (75-110); POTASSIUM 4.8 mmol/L (3.6-5.0)
[2019-07-23] MEDS ORDERED: LIDOCAINE 0.5% INJ-PF (5 MG/ML) 50 ML SDV ONE (09:58)
[2019-07-23] MEDS ORDERED: BACITRACIN INJ 50,000 UNIT VIAL ONE (09:58)
[2019-07-23] MEDS ORDERED: FENTANYL CITRATE INJ/PF 100 MCG/2 ML AMPUL ONE (10:01)
[2019-07-23] MEDS ORDERED: MIDAZOLAM 2 MG/2 ML INJ ONE (10:01)
--- NOTE | 2019-07-23 11:09 | RADIOLOGY REPORT (SQ) ---
EXAM DESCRIPTION: PORTACATH INSERTION COMPLETED DATE/TIME: 07/23/2019 11:02 am REASON FOR STUDY: C67.5 BLADDER NECK CA C67.5 MALIGNANT NEOPLASM OF BLADDER NECK COMPARISON: None. FLUOROSCOPY TIME: 0.2 minutes Spot images saved to PACS. TECHNIQUE: Intra-operative images acquired during surgical procedure to evaluate progress. NUMBER OF IMAGES: 8 LIMITATIONS: None. FINDINGS: Fluoroscopy was provided for intraoperative procedure. Please refer to the operative repo rt for further discussion. IMPRESSION: IMAGE(S) OBTAINED DURING PROCEDURE. COMMENT: Quality ID [id number]: Final reports for procedures using fluoroscopy that document radiation exp osure indices, or exposure time and number of fluorographic images (if radiation exposure indices are not available) Please consult full operative report of the attending physician for description of the procedure. TECHNICAL DOCUMENTATION: JOB ID: [id number] [employer]- All Rights Reserved Reading location - IP/workstation name: [email or web address]
--- NOTE | 2019-07-23 11:43 | PDOC H&P ---
General Chief Complaint: The patient has been diagnosed with bladder cancer. He is admitted for insertion of a Port-A-Cath so that he may receive chemotherapy. - Diagnosis (1) Bladder cancer Is this a Current Diagnosis?: Yes - Current Medications/Allergies Home Medications: Insulin Aspart [Novolog Flexpen] 15 units SQ AC 09/08/17 Insulin Glargine,Hum.rec.anlog [Lantus] 90 units SQ QHS 09/08/17 Folic Acid [Folvite 1 mg Tablet] 07/23/19 Allergies/Adverse Reactions: No Known Allergies Allergy (Verified 07/23/19 08:15) Past Medical History Cardiac Medical History: Reports: Hypertension Denies: Coronary Artery Disease, Myocardial Infarction Pulmonary Medical History: Denies: Asthma, Bronchitis, Chronic Obstructive Pulmonary Disease (COPD), Pneumonia Neurological Medical History: Denies: Seizures Endocrine Medical History: Reports: Diabetes Mellitus Type 2 Musculoskeltal Medical History: Denies: Arthritis Hematology: Reports: Anemia Past Surgical History Past Surgical History: Reports: Orthopedic Surgery - right shoulder Family History Family History: Malignancy, Other Parental Family History Reviewed: No Children Family History Reviewed: No Sibling(s) Family History Reviewed.: No Social History Smoking Status: Unknown if Ever Smoked Frequency of Alcohol Use: None Hx Recreational Drug Use: No Drugs: None Hx Prescription Drug Abuse: No Physical Exam Vital Signs: Temp Pulse Resp BP Pulse Ox 98.3 F 72 18 126/75 H 99 07/23/19 07:30 07/23/19 07:30 07/23/19 07:30 07/23/19 07:30 07/23/19 07:30 Intake & Output 07/22/19 07/23/19 07/24/19 06:59 06:59 06:59 Weight 156.489 kg Additional comments: Constitutional: Well-developed well-nourished gentleman, increased body habitus. No apparent acute distress. Eyes: Mucous membranes pink and moist, pupils equal and reactive to light. Con junctiva normal. Cornea normal. ENT: Hearing grossly normal. External pinna normal to inspection. Tongue normal to inspection. Cardiac: Heart sounds 1 and 2 normal, no murmurs. Respiratory: breath sounds are present bilaterally, normal. Normal respiratory effort. Psychiatric: Judgment, memory, insight seem normal. Mood is pleasant and appropriate. Extremities: Upper extremities show normal range of movement. Pulses present noted to the radial arteries. Capillary refill normal. No cyanosis noted. No muscle wasting noted. Neurovascular: No apparent tremors, gait normal. Sensation grossly intact. Hearing grossly normal. Vison grossly intact. Impression/Plan Plan: This patient has been referred for a Port-A-Cath insertion. The procedure, its risks, benefits, expected outcome and alternatives have been explained. He is agreeable and is to proceed.
--- NOTE | 2019-07-23 11:46 | Discharge Summary ---
Discharge Summary (SDC) - Discharge Final Diagnosis: #1 bladder cancer. 2. Diabetes mellitus type 2. 3. Hypertension. Date of Surgery: 07/23/19 Discharge Date: 07/23/19 Condition: Fair Treatment or Instructions: Discharge home [after recovery per ASU criteria]. Diet , diabetic as tolerated, when fully awake advance as tolerated. Activities within moderation encouraged. Follow up in my office by appointment in about [1 week]. Call for appointment. Leave wounds [covered], [keep clean and dry, until office visit in 1 week]. Hold of on school/work [until evaluation in office]. Meds per med rec. May shower [in 48 hrs], [try to keep operated area as dry as possible]. Referrals: NATTY HERNANDEZ MD [Primary Care Provider] - Discharge Diet: As Tolerated Discharge Activity: Activity As Tolerated Report the Following to Your Physician Immediately: Shortness of Breath, Unusual Bleeding
--- NOTE | 2019-07-23 11:49 | Operative Report ---
Operative Report DATE OF SURGERY: 07/23/19 PREOPERATIVE DIAGNOSIS: #1 bladder cancer. 2. Diabetes mellitus type 2. 3. Hypertension. POSTOPERATIVE DIAGNOSIS: #1 bladder cancer. 2. Diabetes mellitus type 2. 3. Hypertension. OPERATION: 1. Ultrasound evaluation and real-time access in the right internal jugular vein. 2. Insertion of Port-A-Cath via real-time access in the right internal jugular vein. 3. Angiogram and interpretation. SURGEON: NELIDA FALCON FIELD SALES TRAINER: None. ANESTHESIA: Moderate Sedation TISSUE REMOVED OR ALTERED: Not applicable. COMPLICATIONS: None. ESTIMATED BLOOD LOSS: 5 mL. INTRAOPERATIVE FINDINGS: Of a satisfactory right internal jugular vein, satisfa ctory access. Easy egress of blood and ingress of heparinized solution from the port. Postprocedure chest x-ray unremarkable with hardware in place. Satisfactory flow of contrast through the right atrium, ventricle and pulmonary outflow tract. PROCEDURE: After obtaining informed consent, the patient was taken to the [facility] and positioned supine. The [right] neck and chest were prepared with chlorhexidine and draped out with sterile linen. After the " universal timeout", in which it was verified that the patient continued to receive antibiotic, the procedure c ommenced. A steriley sheathed ultrasound probe was used to evaluate the [right] internal jugular vein. Local anesthesia was infiltrated adjacent to the probe. Access into the [right] internal jugular vein was obtained using a micropuncture needle, followed by micropuncture wire and then a micropuncture catheter. This was followed by introduction of a 0.035 guidewire the tip of which was placed down into the inferior vena cava . The port sites was marked , locally anesthetized and incision made. Dissection now proceeded to the deep subcutaneous subcutaneous tissues so that a pocket for the port was made. Meticulous hemostasis was secured and the catheter was tunneled between the 2 incisions. Proximally, the catheter was now positioned using a peel-away sheath. Distally the catheter was tailored to an appropriate length and then mated to the port using the contained fixating device. The port was now placed in the pocket and the catheter optimally positioned. The port was accessed with a Chawla needle and an angiogram done under digital subtraction. The findings as dictated. With adequate and satisfactory positioning, the lumen of the chamber were irrigated with heparinized solution. The wounds were now closed using interrupted 3-0 PDS to the subcutaneous tissues and a continuous subcuticular suture of 4-0 Monocryl to the skin. These are reinforced with Steri-Strips over benzoin and then dressings applied. Time: 0.2 minute. Dose: 16.46 m Gy Contrast: 5 Mls. Isovue 300. Copies of the dictated operative report for Dr. Nelida Sumner MD.
[2019-07-23 13:46] VITALS: BP 155/91
== END 2019-07-23 12:25 | disposition home or self-care (01) ==
LOC: CCL 06:30
PROVIDERS: ATTEND Surgery
DX: C67.5 Malignant neoplasm of bladder neck (principal); E11.9 Type 2 diabetes mellitus without complications; I10 Essential (primary) hypertension; Z79.4 Long term (current) use of insulin; D64.9 Anemia, unspecified; Z86.14 Personal history of Methicillin resistant Staphylococcus aureus infection; Z89.439 Acquired absence of unspecified foot
CPT/HCPCS: 36415; 85027; 80048; 36561; 76937; 77001; C1752; C1788; Q9967; J2250; J3490 ×2; J0690; A9270 ×2; J3010; J1644

== ENCOUNTER → 2019-07-24 | Outpatient (CLI) | payer MEDICARE, OTHER ==
--- NOTE | 2019-07-25 10:28 | RADIOLOGY REPORT (SQ) ---
EXAM DESCRIPTION: PET CT SKULL/THIGH COMPLETED DATE/TIME: 07/24/2019 9:18 pm REASON FOR STUDY: (C67.5)MALIGNANT NEOPLASM OF BLADDER NECK C67.5 MALIGNANT NEOPLASM OF BLADDER NEC K COMPARISON: CT abdomen pelvis dated 07/02/2019 RADIONUCLIDE AND DOSE: 11.0 mCi F18 FDG The route of agent administration: Intravenous FASTING BLOOD SUGAR: 128 mg/dl CONTRAST TYPE AND DOSE: No CT contrast given. TECHNIQUE: Blood glucose level was verified. Above dose of FDG was injected intravenously. 2-D seg mented attenuation correction images were obtained from the base of the skull to the midthighs. Nonc ontrast CT images were obtained for attenuation correction and fusion with emission images. CT image s were performed without oral or intravenous contrast and are not sensitive for parenchymal lesions. A series of overlapping emission PET images were obtained. Images reviewed and manipulated at [facility] work station by the radiologist. Images stored on PACS. LIMITATIONS: None. FINDINGS: HEAD AND NECK: No areas of abnormal metabolic activity in the soft tissues of the head and neck. CHEST: No areas of abnormal metabolic activity in the chest. ABDOMEN AND PELVIS: Irregular-shaped bladder. Activity extends outside the bladder lumen consistent with neoplasm. SUV measures greater than 15 consistent with neoplasm. No distant metastases. PROXIMAL LOWER EXTREMITIES: No areas of abnormal metabolic activity in the soft tissues of the lower extremities. BONES: No abnormal metabolic activity in the visualized skeleton. ADDITIONAL CT FINDINGS: No additional significant findings on the noncontrast CT images. OTHER: No other significant findings. IMPRESSION: Abnormal uptake is confined to the bladder. SUV is greater than 15. TECHNICAL DOCUMENTATION: JOB ID: [id number] [employer]- All Rights Reserved Reading location - IP/workstation name: [email or web address]
== END ==
LOC: RAD 17:08
PROVIDERS: ATTEND Internal Medicine
DX: C67.5 Malignant neoplasm of bladder neck (principal)
CPT/HCPCS: 78815; A9552

== ENCOUNTER 2019-08-01 10:27 | Emergency (ER) | payer MEDICARE, OTHER ==
[2019-08-01 10:35] VITALS: BP 136/79
--- NOTE | 2019-08-01 11:10 | ER Document Report ---
ED Medical Screen (RME) - General Chief Complaint: Problem with Urinary Catheter Stated Complaint: URINARY PROBLEMS Time Seen by Provider: 08/01/19 11:01 Primary Care Provider: NATTY HERNANDEZ MD [Primary Care Provider] - Follow up as needed Notes: Patient is a 69-year-old male presents to the emergency department with a chief complaint of catheter problem. Patient states he has had a urinary catheter placed for 1 month. Patient states he does have bladder cancer and is supposed to start chemo tomorrow. Patient is followed by Dr. Dailey. Patient reports pain in the bladder. Patient states he woke up this morning and his bed was soaked with blood and urine. Patient states he is unsure where the catheter is leaking. TRAVEL OUTSIDE OF THE [place] IN LAST 30 DAYS: No - Related Data Allergies/Adverse Reactions: No Known Allergies Allergy (Verified 08/01/19 10:30) Past Medical History - Social History Frequency of alcohol use: None Drug Abuse: None Family history: Reviewed & Not Pertinent - Past Medical History Cardiac Medical History: Denies: Hx Coronary Artery Disease, Hx Heart Attack, Hx Hypertension Pulmonary Medical History: Denies: Hx Asthma, Hx Bronchitis, Hx COPD, Hx Pneumonia Neurological Medical History: Denies: Hx Cerebrovascular Accident, Hx Seizures Endocrine Medical History: Reports: Hx Diabetes Mellitus Type 2 Renal/ Medical History: Denies: Hx Peritoneal Dialysis Musculoskeltal Medical History: Denies Hx Arthritis Past Surgical History: Reports: Hx Orthopedic Surgery - right shoulder, L toes removed - Immunizations Hx Diphtheria, Pertussis, Tetanus Vaccination: Yes History of Influenza Vaccine for 08/2017 - 01/2018 Season: Refused Physical Exam - Vital signs Vitals: Temp Pulse Resp BP Pulse Ox 97.7 F 81 17 136/79 H 94 08/01/19 10:33 08/01/19 10:33 08/01/19 10:33 08/01/19 10:33 08/01/19 10:33 Course - Re-evaluation Re-evalutation: 08/01/19 11:[address] patient in a gown for more thorough assessment of the catheter. Will obtain basic labs and a urinalysis I have greeted and performed a rapid initial assessment of this patient. A comprehensive ED assessment and evaluation of the patient, analysis of test results and completion of the medical decision making process will be conducted by additional ED providers. - Vital Signs Vital signs: Temp Pulse Resp BP Pulse Ox 97.7 F 81 17 136/79 H 94 08/01/19 10:33 08/01/19 10:33 08/01/19 10:33 08/01/19 10:33 08/01/19 10:33 Doctor's Discharge - Discharge Referrals: NATTY HERNANDEZ MD [Primary Care Provider] - Follow up as needed
[2019-08-01] MEDS ORDERED: LIDOCAINE 2% URO-JET 5 ML KIT MM ONE (12:46)
--- NOTE | 2019-08-01 12:59 | ER Document Report ---
Entered by BIENVENIDO REVELES SCRIBE 08/01/19 1248 Acting as scribe for:AMBER NAVARRO MD ED GI/ - General Chief Complaint: Problem with Urinary Catheter Stated Complaint: URINARY PROBLEMS Time Seen by Provider: 08/01/19 11:01 Primary Care Provider: NATTY HERNANDEZ MD [Primary Care Provider] - Follow up as needed Mode of Arrival: Ambulatory Information source: Patient Notes: Patient is a 69-year-old male who presents to the emergency department today with complaints of "blood and urine leaking out around Deutsch catheter". Patient states he does not know if it is still draining into his leg bag or not. Patient states he has not had anything to drink today "because he was in too much pain". Patient states that the pain seems to get severe for about 5 minutes over his bladder and then somewhat subsides. Patient was seen here on 07/02 for hematuria, CT scan was obtained and the patient was found to have a bladder mass. Patient states he has not followed up with anyone from urology here locally, he was sent to [place] and saw urology there but has not seen anyone since. TRAVEL OUTSIDE OF THE [place] IN LAST 30 DAYS: No - Related Data Allergies/Adverse Reactions: No Known Allergies Allergy (Verified 08/01/19 10:30) Past Medical History - General Information source: Patient - Social History Smoking Status: Former Smoker - quit in 2000 Cigarette use (# per day): No Chew tobacco use (# tins/day): No Smoking Education Provided: No Frequency of alcohol use: None Drug Abuse: None Lives with: Family Family History: Reviewed & Not Pertinent, Malignancy, Other Patient has suicidal ideation: No Patient has homicidal ideation: No Endocrine Medical History: Reports: Hx Diabetes Mellitus Type 2 Past Surgical History: Reports: Hx Orthopedic Surgery - right shoulder, L toes removed - Immunizations Hx Diphtheria, Pertussis, Tetanus Vaccination: Yes Review of Systems - Review of Systems Constitutional: No symptoms reported EENT: No symptoms reported Cardiovascular: No symptoms reported Respiratory: No symptoms reported Gastrointestinal: See HPI, Abdominal pain Genitourinary: See HPI, Other - urine and blood leaking out around deutsch catheter Male Genitourinary: No symptoms reported Musculoskeletal: No symptoms reported Skin: No symptoms reported Hematologic/Lymphatic: No symptoms reported Neurological/Psychological: No symptoms reported -: Yes All other systems reviewed and negative Physical Exam - Vital signs Vitals: Temp Pulse Resp BP Pulse Ox 97.7 F 81 17 136/79 H 94 08/01/19 10:33 08/01/19 10:08/01/19 10:08/01/19 10:08/01/19 10:33 - Notes Notes: Physical Exam: General: Alert, obese. HEENT: Normocephalic. Atraumatic. PERRL. Extraocular movements intact. Oropharynx clear. Neck: Supple. Non-tender. Respiratory: No respiratory distress. Clear and equal breath sounds bilaterally. Cardiovascular: Regular rate and rhythm. Abdominal: Obese. Non-tender. No distension. Normal Bowel Sounds. Male Genitourinary: Deutsch in place, does not appear to be draining. There is what appears to be a blood clot in the catheter. There is a small amount of old reddish colored urine in the bag. Back: No gross abnormalities. Extremities: Moves all four extremities. Upper extremities: Normal inspection. Normal ROM. Lower extremities: Normal inspection. No edema. Normal ROM. Neurological: Normal cognition. AAOx4. Normal speech. Psychological: Normal affect. Normal Mood. Skin: Warm. Dry. Normal color. Course - Re-evaluation Re-evalutation: 08/01/19 14:29 Deutsch catheter was changed, and he drained about 100 mL's of urine that was only pinkish tinged. There was a lot of mucus. - Vital Signs Vital signs: Temp Pulse Resp BP Pulse Ox 97.7 F 81 17 136/79 H 94 08/01/19 10:33 08/01/19 10:33 08/01/19 10:08/01/19 10:33 08/01/19 10:33 - Laboratory Laboratory results interpreted by me: 08/01/19 12:20 Urine Protein 100 H Urine Blood LARGE H Urine Nitrite POSITIVE H Ur Leukocyte Esterase LARGE H Discharge - Discharge Clinical Impression: Deutsch catheter problem Qualifiers: Encounter type: initial encounter Qualified Code(s): T83.9XXA - Unspecified complication of genitourinary prosthetic device, implant and graft, initial encounter Condition: Stable Disposition: HOME, SELF-CARE Additional Instructions: Drink lots of fluids to keep your catheter flushed to prevent it from becoming clogged off again. Follow-up with your doctor as needed. RETURN TO THE EMERGENCY ROOM IF ANY NEW OR WORSENING SYMPTOMS. Referrals: NATTY HERNANDEZ MD [Primary Care Provider] - Follow up as needed Scribe Attestation: 08/01/19 14:29 I personally performed the services described in the documentation, reviewed and edited the documentation which was dictated to the scribe in my presence, and it accurately records my words and actions. I personally performed the services described in the documentation, reviewed and edited the documentation which was dictated to the scribe in my presence, and it accurately records my words and actions.
[2019-08-01 13:05] LABS: APPEARANCE,URINE CLOUDY; BILIRUBIN,URINE NEGATIVE (NEGATIVE); GLUCOSE, URINE NEGATIVE (NEGATIVE); KETONES,URINE NEGATIVE (NEGATIVE); LEUKOCYTE ESTERASE,URINE LARGE (NEGATIVE); NITRITE,URINE POSITIVE (NEGATIVE); PROTEIN,URINE 100 mg/dL (NEGATIVE); UROBILINOGEN,URINE NEGATIVE mg/dL (<2.0)
[2019-08-01 13:06] LABS: COLOR,URINE RED
== END 2019-08-01 14:45 | disposition home or self-care (01) ==
LOC: ER 10:27
DX: T83.031A Leakage of indwelling urethral catheter, initial encounter (principal); Y84.6 Urinary catheterization as the cause of abnormal reaction of the patient, or of later complication, without mention of misadventure at the time of the procedure; R39.89 Other symptoms and signs involving the genitourinary system; E11.9 Type 2 diabetes mellitus without complications
CPT/HCPCS: 99283; 51702; 81001; C1758; A9270; J3490

== ENCOUNTER → 2019-08-01 | Outpatient (CLI) | payer MEDICARE, OTHER ==
[2019-08-01 10:26] LABS: ABSOLUTE EOSINOPHILS # (AUTO) 0.4 10^3/uL (0.0-0.6); ABSOLUTE LYMPHOCYTES (AUTO) 2.1 10^3/uL (0.5-4.7); ABSOLUTE NEUT (AUTO) 5.7 10^3/uL (1.7-8.2); BASOPHILS % (AUTO) 0.4 % (0-2); EOSINOPHILS % (AUTO) 4.6 % (0-6); HEMATOCRIT 38.7 % (37.9-51.0); HEMOGLOBIN 12.7 g/dL (13.5-17.0); MEAN CORPUSCULAR HEMOGLOBIN 30.9 pg (27.0-33.4); MEAN CORPUSCULAR HGB CONC 32.9 g/dL (32.0-36.0); MEAN CORPUSCULAR VOLUME 94 fl (80-97); MONOCYTES % (AUTO) 10.5 % (3-13); PLATELET COUNT 221 10^3/uL (150-450); RED BLOOD COUNT 4.11 10^6/uL (4.35-5.55); RED CELL DISTRIBUTION WIDTH 16.3 % (11.5-14.0); SEGMENTED NEUTROPHILS % (AUTO) 61.5 % (42-78); TOTAL CELLS COUNTED % (AUTO) 100 %; WHITE BLOOD COUNT 9.3 10^3/uL (4.0-10.5)
--- NOTE | 2019-08-01 10:28 | RADIOLOGY REPORT (SQ) ---
EXAM DESCRIPTION: FOOT LEFT COMPLETE COMPLETED DATE/TIME: 08/01/2019 10:13 am REASON FOR STUDY: NON-PRS CHRONIC ULCER OTH PRT LEFT FOOT W FAT LAYER EXPOSED (L97.522) L97.522 NON -PRS CHRONIC ULCER OTH PRT LEFT FOOT W FAT LAYER E11.621 TYPE 2 DIABETES MELLITUS WITH FOOT ULCER COMPARISON: 06/14/2019 NUMBER OF VIEWS: Three views. TECHNIQUE: AP, lateral and oblique without weight bearing radiographic images acquired of the left f oot. LIMITATIONS: None. FINDINGS: MINERALIZATION: Osteopenia. BONES: Postsurgical changes again noted involving the 4th and 5th digits with chronic changes at the base of the 5th metatarsal. No conventional radiographic evidence of osteomyelitis. No focal lytic o r sclerotic lesions. JOINTS: No erosions. No alyse-articular osteopenia. No chondrocalcinosis. SOFT TISSUES: Soft tissue edema. OTHER: No other significant finding. IMPRESSION: Soft tissue edema along with postsurgical changes. No conventional radiographic evidenc e of osteomyelitis. No significant change from prior study. TECHNICAL DOCUMENTATION: JOB ID: [id number] [employer]- All Rights Reserved Reading location - IP/workstation name: [email or web address]
[2019-08-01 10:59] LABS: ALBUMIN 3.7 g/dL (3.5-5.0); ALKALINE PHOSPHATASE 123 U/L (38-126); ANION GAP 8 (5-19); ASPARTATE AMINO TRANSFERASE 19 U/L (17-59); BILIRUBIN,DIRECT 0.3 mg/dL (0.0-0.4); BILIRUBIN,TOTAL 0.7 mg/dL (0.2-1.3); BLOOD UREA NITROGEN 19 mg/dL (7-20); C-REACTIVE PROTEIN 24.5 mg/L (<10.0); CALCIUM 9.5 mg/dL (8.4-10.2); CARBON DIOXIDE 25 mmol/L (22-30); CHLORIDE 107 mmol/L (98-107); GLUCOSE 90 mg/dL (75-110); POTASSIUM 4.7 mmol/L (3.6-5.0); TOTAL PROTEIN 7.6 g/dL (6.3-8.2)
[2019-08-01 11:05] LABS: ERYTHROCYTE SEDIMENTATION RATE 82 mm/hr (0-20)
== END ==
LOC: RAD 09:45
PROVIDERS: ATTEND Preventive Medicine Undersea and Hyperbaric Medicine
DX: E11.621 Type 2 diabetes mellitus with foot ulcer (principal); L97.522 Non-pressure chronic ulcer of other part of left foot with fat layer exposed
CPT/HCPCS: 36415; 80053; 83036; 85025; 85652; 86140

== ENCOUNTER 2019-08-08 10:11 | Emergency (ER) | payer MEDICARE, OTHER ==
[2019-08-08] MEDS ORDERED: LIDOCAINE 2% URO-JET 5 ML KIT MM ONE (10:44)
--- NOTE | 2019-08-08 10:49 | ER Document Report ---
HPI - HPI Patient complains to provider of: Catheter malfunction Time Seen by Provider: 08/08/19 10:29 Onset: Yesterday Onset/Duration: Persistent Pain Level: Denies Context: Patient states that he has a Deutsch catheter that he converts to a drainage bag at nighttime. Patient states that whenever he switched to the leg bag yesterday the connection does not fit tightly and it continually separates causing drainage to leak out. Patient states that he does have a history of bladder cancer and is in the process of getting chemotherapy. Patient states that he saw his primary doctor today and told his doctor there was him to come here because of the catheter not functioning properly. Patient has an appointment with his oncologist tomorrow. Associated Symptoms: denies: Fever Exacerbated by: Denies Relieved by: Denies Similar symptoms previously: Yes Recently seen / treated by doctor: Yes - ROS ROS below otherwise negative: Yes Systems Reviewed and Negative: Yes All other systems reviewed and negative - CONSTITUTIONAL Constitutional: DENIES: Fever - NEURO Neurology: DENIES: Weakness - GASTROINTESTINAL Gastrointestinal: REPORTS: Abdominal Pain. DENIES: Nausea - URINARY Notes: Catheter malfunction - MUSCULOSKELETAL Musculoskeletal: DENIES: Extremity pain - DERM Skin Color: Normal Skin Problems: None Past Medical History - General Information source: Patient - Social History Smoking Status: Former Smoker Frequency of alcohol use: None Drug Abuse: None Occupation: None Lives with: Alone Family History: Reviewed & Not Pertinent, Malignancy, Other - Past Medical History Cardiac Medical History: Reports: Hx Hypertension Endocrine Medical History: Reports: Hx Diabetes Mellitus Type 2 Renal/ Medical History: Denies: Hx Peritoneal Dialysis Malignancy Medical History: Reports Other - Bladder cancer Musculoskeletal Medical History: Denies Hx Arthritis Past Surgical History: Reports: Hx Orthopedic Surgery - right shoulder, L toes r emoved - Immunizations Hx Diphtheria, Pertussis, Tetanus Vaccination: Yes Vertical Provider Document - CONSTITUTIONAL Agree With Documented VS: Yes Exam Limitations: No Limitations General Appearance: WD/WN, No Apparent Distress - INFECTION CONTROL TRAVEL OUTSIDE OF THE [place] IN LAST 30 DAYS: No - HEENT HEENT: Atraumatic, Normocephalic - NECK Neck: Normal Inspection - RESPIRATORY Respiratory: Breath Sounds Normal, No Respiratory Distress - CARDIOVASCULAR Cardiovascular: Regular Rate, Regular Rhythm - GI/ABDOMEN Gastrointestinal: Abdomen Soft - REPRODUCTIVE Male Genitalia: Abnormal Inspection - deutsch catheter in place, hematuria noted to leg bag, patient with blood on underwear - MUSCULOSKELETAL/EXTREMETIES Musculoskeletal/Extremeties: MAEW - NEURO Level of Consciousness: Awake, Alert, Appropriate Motor/Sensory: No Motor Deficit Course - Re-evaluation Re-evalutation: 08/08/19 10:47 Patient states that he did see his primary doctor today and they talked about the catheter and the patient was given numbers for urology. Patient states that he has not followed up with urology since he was discharged from [place] as he does not want to go back to any [facility] urologist. States that he does have an appointment with his oncologist tomorrow to see about starting chemotherapy for his bladder cancer. Patient advised to follow-up with urology for issues regarding his catheter. Patient also advised to speak with his primary doctor as well as oncologist about urology follow-up. 08/08/19 12:30 Patient advised of urine infection at this time. Will culture urine and start patient on an antibiotic. Patient encouraged to keep his appointment tomorrow with his oncologist. Patient also encouraged to follow-up with urology. - Vital Signs Vital signs: Temp Pulse Resp BP Pulse Ox 97.6 F 85 107/66 97 08/08/19 10:16 08/08/19 10:16 08/08/19 10:16 08/08/19 10:16 - Laboratory Laboratory results interpreted by me: 08/08/19 12:30 Labs- Entire Visit 08/08/19 11:45 Urine Color YELLOW Urine Appearance CLOUDY Urine pH 6.0 Ur Specific [place] 1.008 Urine Protein 100 H Urine Glucose (UA) NEGATIVE Urine Ketones NEGATIVE Urine Blood LARGE H Urine Nitrite NEGATIVE Urine Bilirubin NEGATIVE Urine Urobilinogen NEGATIVE Ur Leukocyte Esterase MODERATE H Urine WBC (Auto) >182 Urine RBC (Auto) >182 U Non-Squamous Epis Auto 20 Amorphous Sediment Auto 1+ Urine Ascorbic Acid NEGATIVE Discharge - Discharge Clinical Impression: Deutsch catheter problem Qualifiers: Encounter type: initial encounter Qualified Code(s): T83.9XXA - Unspecified complication of genitourinary prosthetic device, implant and graft, initial encounter Bladder cancer Qualifiers: Bladder location: unspecified site Qualified Code(s): C67.9 - Malignant neoplasm of bladder, unspecified UTI (urinary tract infection) Qualifiers: Urinary tract infection type: site unspecified Hematuria presence: with hematuria Qualified Code(s): N39.0 - Urinary tract infection, site not specified Condition: Stable Disposition: HOME, SELF-CARE Instructions: Cephalexin ([facility]), Deutsch Catheter Care ([facility]), Rocephin ([facility]), Urinary Tract Infection ([facility]) Additional Instructions: Return immediately for any new or worsening symptoms Followup with your primary care provider, call tomorrow to make a followup appointment Urine culture is pending, we will call if you need any different treatment Follow-up with your oncologist tomorrow as planned. Your oncologist can also refer you to a urologist as needed. Prescriptions: Cephalexin Monohydrate [Keflex 500 mg Capsule] 500 mg PO Q6H 7 Days capsule Referrals: NATTY HERNANDEZ MD [Primary Care Provider] - Follow up as needed [facility] [Provider Group] - Follow up as needed [facility] [Provider Group] - Follow up as needed CHRISTINA MERCHANT MD [ACTIVE STAFF] - Follow up tomorrow
[2019-08-08 12:17] LABS: AMORPHOUS SEDIMENT,URINE 1+ /HPF; APPEARANCE,URINE CLOUDY; BILIRUBIN,URINE NEGATIVE (NEGATIVE); COLOR,URINE YELLOW; GLUCOSE, URINE NEGATIVE (NEGATIVE); KETONES,URINE NEGATIVE (NEGATIVE); LEUKOCYTE ESTERASE,URINE MODERATE (NEGATIVE); NITRITE,URINE NEGATIVE (NEGATIVE); PROTEIN,URINE 100 mg/dL (NEGATIVE); URINE SPECIFIC GRAVITY 1.008; UROBILINOGEN,URINE NEGATIVE mg/dL (<2.0)
[2019-08-08] MEDS ORDERED: LIDOCAINE 1% INJ (10 MG/ML) 10 ML MDV INJ ONE (12:26)
[2019-08-08] MEDS ORDERED: CEFTRIAXONE INJ 1000 MG VIAL IM ONE (12:26)
[2019-08-08 13:31] VITALS: BP 142/69
== END 2019-08-08 13:31 | disposition home or self-care (01) ==
LOC: ER 10:11
DX: T83.9XXA Unspecified complication of genitourinary prosthetic device, implant and graft, initial encounter (principal); C67.9 Malignant neoplasm of bladder, unspecified; N39.0 Urinary tract infection, site not specified; R10.9 Unspecified abdominal pain; Z87.891 Personal history of nicotine dependence; I10 Essential (primary) hypertension; E11.9 Type 2 diabetes mellitus without complications
CPT/HCPCS: 87086; 87088; 81001; J0696; A9270; 87186; J3490

== ENCOUNTER 2019-09-19 12:35 | Inpatient (IN) | payer MEDICARE, OTHER ==
--- NOTE | 2019-09-19 12:39 | ER Document Report ---
ED Medical Screen (RME) - General Stated Complaint: POSSIBLE PASSED OUT Time Seen by Provider: 09/19/19 12:37 Primary Care Provider: NATTY HERNANDEZ MD [Primary Care Provider] - Follow up as needed Information source: Patient Notes: Patient was sent here from his primary doctor's office for the concern about possible sepsis as he was neutropenic. Patient is currently undergoing chemo for bladder cancer. Patient was found collapsed on the ground in the parking lot by a visitor. Patient states that he was attempting to walk in ER after driving here and became weak and collapsed. I have greeted and performed a rapid initial assessment of this patient. A comprehensive ED assessment and evaluation of the patient, analysis of test results and completion of the medical decision making process will be conducted by additional ED providers. TRAVEL OUTSIDE OF THE [place] IN LAST 30 DAYS: No - Related Data Allergies/Adverse Reactions: No Known Allergies Allergy (Verified 08/08/19 10:14) Past Medical History - Social History Family history: Reviewed & Not Pertinent - Past Medical History Cardiac Medical History: Reports: Hx Hypertension Denies: Hx Coronary Artery Disease, Hx Heart Attack Pulmonary Medical History: Denies: Hx Asthma, Hx Bronchitis, Hx COPD, Hx Pneumonia Neurological Medical History: Denies: Hx Cerebrovascular Accident, Hx Seizures Endocrine Medical History: Reports: Hx Diabetes Mellitus Type 2 Renal/ Medical History: Denies: Hx Peritoneal Dialysis Musculoskeltal Medical History: Denies Hx Arthritis Past Surgical History: Reports: Hx Orthopedic Surgery - right shoulder, L toes removed - Immunizations Hx Diphtheria, Pertussis, Tetanus Vaccination: Yes Physical Exam - General General appearance: Alert Notes: Generalized weakness Doctor's Discharge - Discharge Referrals: NATTY HERNANDEZ MD [Primary Care Provider] - Follow up as needed
[2019-09-19 13:39] LABS: HEMOGLOBIN 9.1 g/dL (13.5-17.0); MEAN CORPUSCULAR HEMOGLOBIN 29.9 pg (27.0-33.4); MEAN CORPUSCULAR HGB CONC 32.5 g/dL (32.0-36.0); MEAN CORPUSCULAR VOLUME 92 fl (80-97); PLATELET COUNT 138 10^3/uL (150-450); RED BLOOD COUNT 3.04 10^6/uL (4.35-5.55); RED CELL DISTRIBUTION WIDTH 16.7 % (11.5-14.0); WHITE BLOOD COUNT 6.8 10^3/uL (4.0-10.5)
[2019-09-19 13:47] LABS: INTERNATIONAL RATION (INR) 1.25; PROTHROMBIN TIME 15.8 SEC (11.4-15.4)
[2019-09-19 13:56] LABS: ALBUMIN 3.4 g/dL (3.5-5.0); ALKALINE PHOSPHATASE 138 U/L (38-126); ANION GAP 12 (5-19); ASPARTATE AMINO TRANSFERASE 23 U/L (17-59); BILIRUBIN,DIRECT 0.2 mg/dL (0.0-0.4); BILIRUBIN,TOTAL 0.4 mg/dL (0.2-1.3); BLOOD UREA NITROGEN 25 mg/dL (7-20); CALCIUM 9.5 mg/dL (8.4-10.2); CARBON DIOXIDE 21 mmol/L (22-30); CHLORIDE 107 mmol/L (98-107); GLUCOSE 181 mg/dL (75-110); POTASSIUM 5.1 mmol/L (3.6-5.0); TOTAL PROTEIN 7.1 g/dL (6.3-8.2)
--- NOTE | 2019-09-19 14:06 | RADIOLOGY REPORT (SQ) ---
EXAM DESCRIPTION: CHEST SINGLE VIEW COMPLETED DATE/TIME: 09/19/2019 1:47 pm REASON FOR STUDY: weakness, neutropenia on chemo COMPARISON: 07/13/2014 NUMBER OF VIEWS: One view. TECHNIQUE: Single frontal radiographic view of the chest acquired. LIMITATIONS: None. FINDINGS: LUNGS AND PLEURA: No opacities, masses or pneumothorax. No pleural effusion. MEDIASTINUM AND HILAR STRUCTURES: No masses. Contour normal. HEART AND VASCULAR STRUCTURES: Heart normal in size. Normal vasculature. BONES: No acute findings. HARDWARE: [id number] is in place. OTHER: No other significant finding. IMPRESSION: NO SIGNIFICANT RADIOGRAPHIC FINDING IN THE CHEST. TECHNICAL DOCUMENTATION: JOB ID: [id number] [employer]- All Rights Reserved Reading location - IP/workstation name: [email or web address]
[2019-09-19] MEDS ORDERED: RINGERS LACTATED IV ONE (14:15)
[2019-09-19 14:17] LABS: ABSOLUTE LYMPHOCYTES# (MANUAL) 2.1 10^3/uL (0.5-4.7); ABSOLUTE MONOCYTES # (MANUAL) 1.8 10^3/uL (0.1-1.4); BASOPHILS % (MANUAL) 0 % (0-2); EOSINOPHILS % (MANUAL) 0 % (0-6); LYMPHOCYTES % (MANUAL) 28 % (13-45); MONOCYTES % (MANUAL) 26 % (3-13); SEGMENTED NEUTROPHILS % (MAN) 43 % (42-78); TOTAL CELLS COUNTED 100
[2019-09-19 14:19] LABS: ANISOCYTOSIS 1+; OVALOCYTES SLIGHT; PLATELET COMMENT DECREASED; POIKILOCYTOSIS SLIGHT; POLYCHROMASIA SLIGHT; SCHISTOCYTES SLIGHT
[2019-09-19 15:22] LABS: VENOUS BLOOD BASE EXCESS -2.2 mmol/L; VENOUS BLOOD HCO3 23.2 mmol/L (20-32); VENOUS BLOOD PCO2 42.4 mmHg (35-63); VENOUS BLOOD PH 7.36 (7.30-7.42)
--- NOTE | 2019-09-19 15:29 | ER Document Report ---
ED General - General Stated Complaint: POSSIBLE SEPSIS Time Seen by Provider: 09/19/19 12:37 Primary Care Provider: NATTY HERNANDEZ MD [Primary Care Provider] - Follow up as needed Mode of Arrival: Ambulatory Information source: Patient TRAVEL OUTSIDE OF THE [place] IN LAST 30 DAYS: No - HPI Notes: Patient is sent from his primary care doctor's office for dehydration. He apparently had low blood pressure and was complaining of weakness at the primary care doctor's office. He states he also passed out on the way over here from the doctor's office. He states that he has bladder cancer and is currently getting chemotherapy but no radiation. He states he had vomiting and diarrhea last week but not this week. However he states that he has had no appetite this week and has been unable to eat or drink much. Patient states he has generalized weakness it is worse with exertion and better with rest. There is no significant radiation of the symptoms. It is constant and severe. He has some generalized body aches and discomfort as well as some suprapubic pain. - Related Data Allergies/Adverse Reactions: No Known Allergies Allergy (Verified 08/08/19 10:14) Past Medical History - General Information source: Patient - Social History Smoking Status: Never Smoker Chew tobacco use (# tins/day): No Frequency of alcohol use: Occasional Drug Abuse: None Family History: Reviewed & Not Pertinent, Malignancy, Other Patient has suicidal ideation: No Patient has homicidal ideation: No - Past Medical History Cardiac Medical History: Reports: Hx Hypertension Denies: Hx Coronary Artery Disease, Hx Heart Attack Pulmonary Medical History: Denies: Hx Asthma, Hx Bronchitis, Hx COPD, Hx Pneumonia Neurological Medical History: Denies: Hx Cerebrovascular Accident, Hx Seizures Endocrine Medical History: Reports: Hx Diabetes Mellitus Type 2 Renal/ Medical History: Denies: Hx Peritoneal Dialysis Musculoskeletal Medical History: Denies Hx Arthritis Past Surgical History: Reports: Hx Orthopedic Surgery - right shoulder, L toes removed - Immunizations Hx Diphtheria, Pertussis, Tetanus Vaccination: Yes Review of Systems - Review of Systems Constitutional: Malaise, Weakness Cardiovascular: denies: Chest pain, Palpitations Respiratory: denies: Cough, Short of breath Gastrointestinal: Diarrhea, Nausea, Vomiting -: Yes All other systems reviewed and negative Physical Exam - Vital signs Vitals: Resp BP 16 123/69 09/19/19 12:46 09/19/19 12:46 Interpretation: Normal - General General appearance: Appears well, Alert In distress: None - HEENT Head: Normocephalic, Atraumatic Eyes: Normal Pupils: PERRL - Respiratory Respiratory status: No respiratory distress Chest status: Nontender Breath sounds: Normal Chest palpation: Normal - Cardiovascular Rhythm: Regular Heart sounds: Normal auscultation Murmur: No - Abdominal Inspection: Normal Distension: No distension Bowel sounds: Normal Tenderness: Nontender Organomegaly: No organomegaly - Back Back: Normal, Nontender - Extremities General upper extremity: Normal inspection, Nontender, Normal color, Normal ROM, Normal temperature General lower extremity: Normal inspection, Nontender, Normal color, Normal ROM, Normal temperature, Normal weight bearing. No: Fabricio's sign - Neurological Neuro grossly intact: Yes Cognition: Normal Orientation: AAOx4 [place] Coma Scale Eye Opening: Spontaneous [place] Coma Scale Verbal: Oriented [place] Coma Scale Motor: Obeys Commands [place] Coma Scale Total: 15 Speech: Normal Motor strength normal: LUE, RUE, LLE, RLE Sensory: Normal - Psychological Associated symptoms: Normal affect, Normal mood - Skin Skin Temperature: Warm Skin Moisture: Dry Skin Color: Normal Course - Re-evaluation Re-evalutation: 09/19/19 15:36 Patient was sent from his primary care doctor's office for dehydration and low b lood pressure. Here his blood pressure has been stable. He had some mild tachycardia. He has received almost 4 L of fluid and is feeling better. He does have an elevated lactate at 3.6. I believe this is secondary to dehydration and not infection. Patient has no white count or fever. Chest x- ray is unremarkable. He has no rashes or significant abdominal pain. I do not have a urinalysis back however. I have discussed this with the hospitalist and I have let her know that she will need to pay attention to the urinalysis and give antibiotics if it is infected. - Vital Signs Vital signs: Temp Pulse Resp BP Pulse Ox 98.1 F 102 H 24 H 116/84 98 09/19/19 12:48 09/19/19 12:48 09/19/19 14:31 09/19/19 14:31 09/19/19 12:48 - Laboratory Result Diagrams: 09/19/19 13:19 09/19/19 13:19 Laboratory results interpreted by me: 1009/19/19 09/19/19 12:42 13:19 13:19 RBC 3.04 L Hgb 9.1 L Hct 28.0 L RDW 16.7 H Plt Count 138 L Monocytes % (Manual) 26 H Abs Monocytes (Manual) 1.8 H PT 15.8 H Potassium Carbon Dioxide BUN Creatinine Est GFR ( Amer) Est GFR (MDRD) Non-Af Glucose POC Glucose 182 H Lactic Acid Alkaline Phosphatase Albumin 09/19/19 09/19/19 13:19 13:19 RBC Hgb Hct RDW Plt Count Monocytes % (Manual) Abs Monocytes (Manual) PT Potassium 5.1 H Carbon Dioxide 21 L BUN 25 H Creatinine 1.83 H Est GFR ( Amer) 45 L Est GFR (MDRD) Non-Af 37 L Glucose 181 H POC Glucose Lactic Acid 3.6 H Alkaline Phosphatase 138 H Albumin 3.4 L - Diagnostic Test Radiology reviewed: Image reviewed, Reports reviewed - EKG Interpretation by Sd EKG shows normal: Sinus rhythm Rate: Normal - 95 Rhythm: NSR Sims/QRS: RBBB Discharge - Discharge Clinical Impression: Dehydration, Elevated lactic acid level, Renal insufficiency Bladder cancer Qualifiers: Bladder location: unspecified site Qualified Code(s): C67.9 - Malignant neoplasm of bladder, unspecified Condition: Fair Disposition: ADMITTED INPATIENT Admitting Provider: waverly Unit Admitted: Medical Floor Referrals: NATTY HERNANDEZ MD [Primary Care Provider] - Follow up as needed
[2019-09-19 16:30] LABS: APPEARANCE,URINE CLOUDY; BILIRUBIN,URINE NEGATIVE (NEGATIVE); GLUCOSE, URINE NEGATIVE (NEGATIVE); KETONES,URINE TRACE mg/dL (NEGATIVE); PROTEIN,URINE 100 mg/dL (NEGATIVE); URINE SPECIFIC GRAVITY 1.017; UROBILINOGEN,URINE NEGATIVE mg/dL (<2.0)
[2019-09-19 16:33] LABS: COLOR,URINE YELLOW
[2019-09-19] MEDS ORDERED: GLUCAGON,HUMAN RECOMB 1 MG INJ IM PRN (16:41)
[2019-09-19] MEDS ORDERED: DEXTROSE 40% GEL 15 GM TUBE PO PRN ×2 (16:41)
[2019-09-19] MEDS ORDERED: DEXTROSE 50%-WATER 25 GM/50 ML DISP.SYRIN IV PRN ×2 (16:41)
[2019-09-19] MEDS ORDERED: ALBUTEROL SULFATE 0.083% NEB 2.5 MG/3 ML AMPUL NEB PRN (16:43)
[2019-09-19] MEDS ORDERED: ONDANSETRON HCL INJ/PF 4 MG/2 ML SDV IV PRN (16:43)
[2019-09-19] MEDS ORDERED: ACETAMINOPHEN 325 MG TABLET PO PRN (16:43)
[2019-09-19] MEDS ORDERED: MAG HYDROX/AL HYDROX/SIMETH SUSP 30 ML UDCUP PO PRN (16:57)
[2019-09-19] MEDS ORDERED: PROMETHAZINE HCL INJ 25 MG/1 ML VIAL IV PRN (16:57)
[2019-09-19] MEDS ORDERED: MORPHINE SULFATE 10 MG/ML INJ IV PRN (17:07)
--- NOTE | 2019-09-19 17:12 | PDOC H&P ---
History of Present Illness Admission Date/PCP: 09/19/19 15:49 NATTY HERNANDEZ MD Patient complains of: nausea and vomiting History of Present Illness: CHRIS HUNTER is a 69 year old male with a past medical history of bladder cancer, DM 2, hypertension, diabetic neuropathy with chronic left foot wound, and morbid obesity who presented to the emergency department today with a complaint of nausea and vomiting. Evaluation in the emergency department revealed mild tachycardia (heart rate 102), hypotension (99/69), tachypnea (respiratory rate 25), baseline anemia (hemoglobin 9.1), mild hyperkalemia at 5.1, acute kidney injury with a creatinine of 1.8 and BUN of 25 (baseline 1.2) elevated lactic acid at 3.6, and urinalysis positive for urinary tract infection. He is started on IV fluid bolus per sepsis protocol and referred to the hospitalist service for admission and management of the above-stated complaints and findings. Past Medical History Cardiac Medical History: Reports: Hypertension Denies: Coronary Artery Disease, Myocardial Infarction Pulmonary Medical History: Reports: None EENT Medical History: Reports: None Neurological Medical History: Denies: Seizures Endocrine Medical History: Reports: Diabetes Mellitus Type 2, Obesity Renal/ Medical History: Reports: None Malignancy Medical History: Reports: Other GI Medical History: Reports: None - Bladder cancer Musculoskeltal Medical History: Denies: Arthritis Psychiatric Medical History: Reports: None Traumatic Medical History: Reports: None Hematology: Reports: Anemia Infectious Medical History: Reports: None Past Surgical History Past Surgical History: Reports: Orthopedic Surgery - right shoulder, L toes removed Social History Information Source: Patient Lives with: Alone Smoking Status: Never Smoker Electronic Cigarette use?: No Frequency of Alcohol Use: Occasional Hx Recreational Drug Use: No Drugs: None Hx Prescription Drug Abuse: No - Advance Directive Resuscitation Status: Full Code Surrogate healthcare decision maker:: Nestor Wallis, Family History Family History: Reviewed & Not Pertinent, Malignancy, Other Parental Family History Reviewed: Yes Children Family History Reviewed: Yes Sibling(s) Family History Reviewed.: Yes Medication/Allergy Allergies/Adverse Reactions: No Known Allergies Allergy (Verified 08/08/19 10:14) Review of Systems Constitutional: PRESENT: anorexia, chills. ABSENT: fever(s), headache(s), weight gain, weight loss Eyes: ABSENT: visual disturbances Ears: ABSENT: hearing changes Cardiovascular: ABSENT: chest pain, dyspnea on exertion, edema, orthropnea, palpitations Respiratory: ABSENT: cough, hemoptysis Gastrointestinal: PRESENT: abdominal pain, diarrhea, nausea, vomiting. ABSENT: constipation, hematemesis, hematochezia Genitourinary: PRESENT: difficulty urinating, dysuria. ABSENT: hematuria Musculoskeletal: ABSENT: joint swelling Integumentary: ABSENT: rash, wounds Neurological: ABSENT: abnormal gait, abnormal speech, confusion, dizziness, focal weakness, syncope Psychiatric: ABSENT: anxiety, depression, homidical ideation, suicidal ideation Endocrine: ABSENT: cold intolerance, heat intolerance, polydipsia, polyuria Hematologic/Lymphatic: ABSENT: easy bleeding, easy bruising Physical Exam Vital Signs: Temp Pulse Resp BP Pulse Ox 98.5 F 102 H 23 H 145/92 H 98 09/19/19 16:01 09/19/19 12:48 09/19/19 16:31 09/19/19 16:31 09/19/19 12:48 Intake & Output 09/18/19 09/19/19 09/20/19 06:59 06:59 06:59 Weight 146.2 kg General appearance: PRESENT: no acute distress, disheveled, morbidly obese, well-developed, well-nourished Head exam: PRESENT: atraumatic, normocephalic Eye exam: PRESENT: conjunctiva pink, EOMI, PERRLA. ABSENT: scleral icterus Mouth exam: PRESENT: dry mucosa, tongue midline Neck exam: ABSENT: carotid bruit, JVD, lymphadenopathy, thyromegaly Respiratory exam: PRESENT: clear to auscultation benny, symmetrical, unlabored. ABSENT: rales, rhonchi, wheezes Cardiovascular exam: PRESENT: RRR, +S1, +S2. ABSENT: diastolic murmur, rubs, systolic murmur Pulses: PRESENT: normal dorsalis pedis pul Vascular exam: PRESENT: normal capillary refill GI/Abdominal exam: PRESENT: normal bowel sounds, soft, tenderness - Suprapubic. 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 ABSENT: calf tenderness, clubbing, pedal edema Neurological exam: PRESENT: alert, awake, oriented to person, oriented to place, oriented to time, oriented to situation, CN II-XII grossly intact. ABSENT: motor sensory deficit Psychiatric exam: PRESENT: appropriate affect, normal mood. ABSENT: homicidal ideation, suicidal ideation Skin exam: PRESENT: dry, intact, warm. ABSENT: cyanosis, rash Results Laboratory Results: 09/19/19 13:19 09/19/19 13:19 09/19/19 09/19/19 09/19/19 13:19 13:19 13:19 WBC 6.8 RBC 3.04 L Hgb 9.1 L Hct 28.0 L MCV 92 MCH 29.9 MCHC 32.5 RDW 16.7 H Plt Count 138 L Seg Neutrophils % Not Reportable VBG pH VBG pCO2 VBG HCO3 VBG Base Excess Sodium 140.3 Potassium 5.1 H Chloride 107 Carbon Dioxide 21 L Anion Gap 12 BUN 25 H Creatinine 1.83 H Est GFR ( Amer) 45 L Glucose 181 H Lactic Acid 3.6 H Calcium 9.5 Total Bilirubin 0.4 AST 23 Alkaline Phosphatase 138 H Total Protein 7.1 Albumin 3.4 L Urine Color Urine Appearance Urine pH Ur Specific [place] Urine Protein Urine Glucose (UA) Urine Ketones Urine Blood Urine RBC (Auto) 09/19/19 09/19/19 15:11 16:10 WBC RBC Hgb Hct MCV MCH MCHC RDW Plt Count Seg Neutrophils % VBG pH 7.36 VBG pCO2 42.4 VBG HCO3 23.2 VBG Base Excess -2.2 Sodium Potassium Chloride Carbon Dioxide Anion Gap BUN Creatinine Est GFR ( Amer) Glucose Lactic Acid Calcium Total Bilirubin AST Alkaline Phosphatase Total Protein Albumin Urine Color YELLOW Urine Appearance CLOUDY Urine pH 6.0 Ur Specific [place] 1.017 Urine Protein 100 H Urine Glucose (UA) NEGATIVE Urine Ketones TRACE H Urine Blood LARGE H Urine RBC (Auto) >182 09/19/19 13:19 Troponin I < 0.012 Impressions: Chest X-Ray 09/19/19 12:37 IMPRESSION: NO SIGNIFICANT RADIOGRAPHIC FINDING IN THE CHEST. Assessment and Plan - Diagnosis (1) Sepsis Qualifiers: Sepsis type: sepsis due to unspecified organism Sepsis acute organ dysfunction status: with acute organ dysfunction Severe sepsis acute organ dysfunction type: acute renal failure Severe sepsis shock status: without septic shock Is this a current diagnosis for this admission?: Yes Plan: The patient is found to have mild tachycardia, hypotension, tachypnea but with acute kidney injury, elevated lactic acid, and urinary tract infection. Patient is being provided appropriate IV fluid bolus by the ED provider. Follow-up lactic acid pending. Blood and urine cultures pending. Will adjust antibiotics as cultures result. Empirically placed on IV Rocephin. Patient is admitted to the medical floor. We will continue maintenance IV fluids. (2) UTI (urinary tract infection) Qualifiers: Urinary tract infection type: acute cystitis Hematuria presence: with hematuria Qualified Code(s): N30.01 - Acute cystitis with hematuria Is this a current diagnosis for this admission?: Yes Plan: Urinalysis reveals UTI; complicated by history of bladder cancer and recent indwelling catheter (removed approximately 2 weeks ago). Urine and blood cultures pending. Start IV Rocephin; adjust cultures result. Pyridium as needed for discomfort. (3) ARA (acute kidney injury) Is this a current diagnosis for this admission?: Yes Plan: Secondary to #1. Fluid bolus and maintenance fluids as above. Avoid nephrotoxic medications as able. Monitor daily chemistries. (4) Bladder cancer Qualifiers: Bladder location: unspecified site Qualified Code(s): C67.9 - Malignant neoplasm of bladder, unspecified Is this a current diagnosis for this admission?: Yes Plan: Followed by Dr. Dailey; will consult. Management per his expertise. Analgesics and antiemetics as needed. (5) Type 2 diabetes mellitus Qualifiers: Diabetes mellitus long term care social worker insulin use: with long term care social worker use Diabetes mellitus complication status: with diabetic arthropathy Diabetes mellitus complication detail: with neuropathic arthropathy Qualified Code(s): E11.618 - Type 2 diabetes mellitus with other diabetic arthropathy; Z79.4 - care home (current) use of insulin; Z79.4 - director long term care (current) use of insulin; Z79.4 - care home (current) use of insulin; Z79.4 - care home (current) use of insulin Is this a current diagnosis for this admission?: Yes Plan: Consistent carb diet. Accu-Cheks before meals and at bedtime with Humalog for sliding scale coverage. Hypoglycemia protocol in place. We will resume home medication regiment once reconciled. - Time Time Spent with patient: 35 or more minutes Medications reviewed and adjusted accordingly: Yes Anticipated discharge: Home Within: within 72 hours - Inpatient Certification Based on my medical assessment, after consideration of the patient's comorbidities, presenting symptoms, or acuity I expect that the services needed warrant INPATIENT care.: Yes I certify that my determination is in accordance with my understanding of Medicare's requirements for reasonable and necessary INPATIENT services [42 CFR 412.3e].: Yes Medical Necessity: Need For IV Fluids, Risk of Diagnosis Which Will Require Inpatient Eval/Care/Monitoring
[2019-09-19] MEDS: CEFTRIAXONE 1 GM/D5W RTU 1 GM/50 ML RTUPB IV SCH (17:48)
[2019-09-19] MEDS: NORMAL SALINE 1000 ML 1,000 ML IV PRN (18:59)
--- NOTE | 2019-09-19 18:59 | EKG REPORT ---
SEVERITY:- ABNORMAL ECG - SINUS RHYTHM RIGHT BUNDLE BRANCH BLOCK : Confirmed by: Alicia Marcelino MD 19-Sep-2019 18:58:24
[2019-09-19] MEDS: HEPARIN SOD (PORCINE) 5,000 UNIT/ML 1 ML VIAL SUBCUT SCH (22:05)
[2019-09-19] MEDS ORDERED: PHENAZOPYRIDINE HCL 100 MG TABLET ONE (22:12)
[2019-09-19] MEDS: INSULIN LISPRO 100 UNIT/ML 3 ML VIAL SUBCUT SCH (22:32)
[2019-09-19] MEDS: PHENAZOPYRIDINE HCL 100 MG TABLET PO SCH (22:33)
[2019-09-19] MEDS: FAMOTIDINE 20 MG TABLET PO SCH (22:33)
[2019-09-20] MEDS: HEPARIN SOD (PORCINE) 5,000 UNIT/ML 1 ML VIAL SUBCUT SCH ×2 (05:24→15:13)
[2019-09-20] MEDS ORDERED: PHENAZOPYRIDINE HCL 100 MG TABLET ONE (05:31)
[2019-09-20] MEDS: PHENAZOPYRIDINE HCL 100 MG TABLET PO SCH ×3 (05:36→22:22)
[2019-09-20 06:57] LABS: HEMATOCRIT 23.5 % (37.9-51.0); MEAN CORPUSCULAR HEMOGLOBIN 29.9 pg (27.0-33.4); MEAN CORPUSCULAR HGB CONC 32.7 g/dL (32.0-36.0); MEAN CORPUSCULAR VOLUME 91 fl (80-97); PLATELET COUNT 134 10^3/uL (150-450); RED BLOOD COUNT 2.57 10^6/uL (4.35-5.55); RED CELL DISTRIBUTION WIDTH 16.3 % (11.5-14.0); WHITE BLOOD COUNT 5.7 10^3/uL (4.0-10.5)
[2019-09-20 07:00] LABS: HEMOGLOBIN 7.7 g/dL (13.5-17.0)
[2019-09-20 07:12] LABS: ANION GAP 7 (5-19); BLOOD UREA NITROGEN 22 mg/dL (7-20); CALCIUM 8.4 mg/dL (8.4-10.2); CARBON DIOXIDE 24 mmol/L (22-30); CHLORIDE 106 mmol/L (98-107); GLUCOSE 237 mg/dL (75-110); POTASSIUM 4.7 mmol/L (3.6-5.0)
[2019-09-20 07:42] LABS: ABSOLUTE LYMPHOCYTES# (MANUAL) 2.4 10^3/uL (0.5-4.7); ABSOLUTE MONOCYTES # (MANUAL) 1.1 10^3/uL (0.1-1.4); BAND NEUTROPHILS % (MANUAL) 2 % (3-5); BASOPHILS % (MANUAL) 0 % (0-2); EOSINOPHILS % (MANUAL) 2 % (0-6); LYMPHOCYTES % (MANUAL) 42 % (13-45); MONOCYTES % (MANUAL) 20 % (3-13); SEGMENTED NEUTROPHILS % (MAN) 34 % (42-78); TOTAL CELLS COUNTED 100
[2019-09-20 07:43] LABS: ANISOCYTOSIS 1+; OVALOCYTES SLIGHT; PLATELET COMMENT DECREASED; POIKILOCYTOSIS SLIGHT; POLYCHROMASIA SLIGHT; SCHISTOCYTES SLIGHT
[2019-09-20] MEDS: INSULIN LISPRO 100 UNIT/ML 3 ML VIAL SUBCUT SCH ×4 (08:11→22:18)
--- NOTE | 2019-09-20 08:30 | PDOC CONSULTATION ---
Consultation Consult Date: 09/20/19 Attending physician:: ASHLEY MATHEW Provider Consulted: CHRISTINA MERCHANT Consult reason:: Severe sepsis, locally advanced bladder cancer currently on chemotherapy History of Present Illness Admission Date/PCP: 09/19/19 15:49 NATTY HERNANDEZ MD Patient complains of: hypotension, fever, weakness History of Present Illness: CHRIS HUNTER is a 69 year old male with known history of locally advanced bladder cancer, unresectable because of comorbidities, was started on [place] based chemotherapy and presented to his PCP yesterday with hypotension, weakness, tachycardia, fever, looks very weak and was told to go to the ER, he actually refused EMS transport and somehow drove himself to the ER and actually collapsed in front of the ER, he was brought in and is had aggressive fluid resuscitation he looks better today, he was in renal failure, lactic acid elevated, tachycardic hypotension with sepsis criteria and has been on broad- spectrum antibiotics he looks better today his vitals are better today. He does have a diabetic wound that has been monitored by wound care on a weekly basis. He is due for dressing change today. Past Medical History Cardiac Medical History: Reports: Hypertension Denies: Coronary Artery Disease, Myocardial Infarction Pulmonary Medical History: Reports: None Denies: Asthma, Bronchitis, Chronic Obstructive Pulmonary Disease (COPD), Pneumonia EENT Medical History: Reports: None Neurological Medical History: Denies: Seizures Endocrine Medical History: Reports: Diabetes Mellitus Type 2, Obesity Renal/ Medical History: Reports: None Malignancy Medical History: Reports: Other - Bladder cancer GI Medical History: Reports: None - Bladder cancer Musculoskeltal Medical History: Denies: Arthritis Psychiatric Medical History: Reports: None Traumatic Medical History: Reports: None Hematology: Reports: Anemia Infectious Medical History: Reports: None Past Surgical History Past Surgical History: Reports: Orthopedic Surgery - right shoulder, L toes removed Social History Information Source: Patient Lives with: Alone Smoking Status: Former Smoker Electronic Cigarette use?: No Last Time Smoked: 2000 Frequency of Alcohol Use: Occasional Hx Recreational Drug Use: No Drugs: None Hx Prescription Drug Abuse: No - Advance Directive Resuscitation Status: Full Code Family History Family History: Reviewed & Not Pertinent, Malignancy, Other Parental Family History Reviewed: Yes Children Family History Reviewed: Yes Sibling(s) Family History Reviewed.: Yes Medication/Allergy Home Medications: Amlodipine Besylate [Norvasc 5 mg Tablet] 5 mg PO DAILY 09/19/19 Folic Acid [Folvite 1 mg Tablet] 1 mg PO DAILY 09/19/19 Insulin Glargine,Hum.rec.anlog [Lantus Insulin 100 Unit/1 ml 10 ml] 100 units SQ QHS 09/19/19 Insulin Lispro [Humalog Insulin (Lispro) 100 unit/mL] 16 units SQ MEALS 09/19/19 Ondansetron HCl [Zofran 8 mg Tablet] 8 mg PO Q8HP PRN 09/19/19 Promethazine HCl [Phenergan 25 mg Tablet] 25 mg PO Q8HP PRN 09/19/19 Tamsulosin HCl [Flomax 0.4 mg Cap.sr] 0.4 mg PO QPM 09/19/19 Trazodone HCl [Desyrel 50 mg Tablet] 100 mg PO HSP PRN 09/19/19 Allergies/Adverse Reactions: No Known Allergies Allergy (Verified 08/08/19 10:14) Review of Systems Constitutional: ABSENT: chills, fever(s), headache(s), weight gain, weight loss Eyes: ABSENT: visual disturbances Ears: ABSENT: hearing changes Cardiovascular: ABSENT: chest pain, dyspnea on exertion, edema, orthropnea, palpitations Respiratory: ABSENT: cough, hemoptysis Gastrointestinal: ABSENT: abdominal pain, constipation, diarrhea, hematemesis, hematochezia, nausea, vomiting Genitourinary: ABSENT: dysuria, hematuria Musculoskeletal: ABSENT: joint swelling Integumentary: ABSENT: rash, wounds Neurological: ABSENT: abnormal gait, abnormal speech, confusion, dizziness, focal weakness, syncope Psychiatric: ABSENT: anxiety, depression, homidical ideation, suicidal ideation Endocrine: ABSENT: cold intolerance, heat intolerance, polydipsia, polyuria Hematologic/Lymphatic: ABSENT: easy bleeding, easy bruising Physical Exam Vital Signs: Temp Pulse Resp BP Pulse Ox 97.9 F 81 18 129/66 H 97 09/20/19 07:44 09/20/19 07:44 09/20/19 00:00 09/20/19 07:44 09/20/19 07:44 Intake & Output 09/19/19 09/20/19 09/21/19 06:59 06:59 06:59 Intake Total 4440 Output Total 350 Balance 4090 Weight 149.8 kg General appearance: PRESENT: no acute distress, well-developed, well-nourished Head exam: PRESENT: atraumatic, normocephalic Eye exam: PRESENT: conjunctiva pink, EOMI, PERRLA. ABSENT: scleral icterus Ear exam: PRESENT: normal external ear exam Mouth exam: PRESENT: moist, tongue midline Neck exam: ABSENT: carotid bruit, JVD, lymphadenopathy, thyromegaly Respiratory exam: PRESENT: clear to auscultation benny. ABSENT: rales, rhonchi, wheezes Cardiovascular exam: PRESENT: RRR. ABSENT: diastolic murmur, rubs, systolic murmur Pulses: PRESENT: normal dorsalis pedis pul Vascular exam: PRESENT: normal capillary refill GI/Abdominal exam: PRESENT: normal bowel sounds, soft. ABSENT: distended, guarding, mass, organolmegaly, rebound, tenderness Rectal exam: PRESENT: deferred Extremities exam: PRESENT: full ROM. ABSENT: calf tenderness, clubbing, pedal edema Neurological exam: PRESENT: alert, awake, oriented to person, oriented to place, oriented to time, oriented to situation, CN II-XII grossly intact. ABSENT: motor sensory deficit Psychiatric exam: PRESENT: appropriate affect, normal mood. ABSENT: homicidal ideation, suicidal ideation Skin exam: PRESENT: dry, intact, warm. ABSENT: cyanosis, rash Results Laboratory Results: 09/20/19 06:00 09/20/19 06:00 09/19/19 09/19/19 09/19/19 13:19 13:19 13:19 WBC 6.8 RBC 3.04 L Hgb 9.1 L Hct 28.0 L MCV 92 MCH 29.9 MCHC 32.5 RDW 16.7 H Plt Count 138 L Seg Neutrophils % Not Reportable VBG pH VBG pCO2 VBG HCO3 VBG Base Excess Sodium 140.3 Potassium 5.1 H Chloride 107 Carbon Dioxide 21 L Anion Gap 12 BUN 25 H Creatinine 1.83 H Est GFR ( Amer) 45 L Glucose 181 H Lactic Acid 3.6 H Calcium 9.5 Total Bilirubin 0.4 AST 23 Alkaline Phosphatase 138 H Total Protein 7.1 Albumin 3.4 L Urine Color Urine Appearance Urine pH Ur Specific [place] Urine Protein Urine Glucose (UA) Urine Ketones Urine Blood Urine RBC (Auto) 09/19/19 09/19/19 09/19/19 15:11 16:10 16:30 WBC RBC Hgb Hct MCV MCH MCHC RDW Plt Count Seg Neutrophils % VBG pH 7.36 VBG pCO2 42.4 VBG HCO3 23.2 VBG Base Excess -2.2 Sodium Potassium Chloride Carbon Dioxide Anion Gap BUN Creatinine Est GFR ( Amer) Glucose Lactic Acid 1.6 Calcium Total Bilirubin AST Alkaline Phosphatase Total Protein Albumin Urine Color YELLOW Urine Appearance CLOUDY Urine pH 6.0 Ur Specific [place] 1.017 Urine Protein 100 H Urine Glucose (UA) NEGATIVE Urine Ketones TRACE H Urine Blood LARGE H Urine RBC (Auto) >182 09/20/19 09/20/19 06:00 06:00 WBC 5.7 RBC 2.57 L Hgb 7.7 L Hct 23.5 L MCV 91 MCH 29.9 MCHC 32.7 RDW 16.3 H Plt Count 134 L Seg Neutrophils % Not Reportable VBG pH VBG pCO2 VBG HCO3 VBG Base Excess Sodium 137.3 Potassium 4.7 Chloride 106 Carbon Dioxide 24 Anion Gap 7 BUN 22 H Creatinine 1.60 H Est GFR ( Amer) 52 L Glucose 237 H Lactic Acid Calcium 8.4 Total Bilirubin AST Alkaline Phosphatase Total Protein Albumin Urine Color Urine Appearance Urine pH Ur Specific [place] Urine Protein Urine Glucose (UA) Urine Ketones Urine Blood Urine RBC (Auto) 09/19/19 13:19 Troponin I < 0.012 Impressions: Chest X-Ray 09/19/19 12:37 IMPRESSION: NO SIGNIFICANT RADIOGRAPHIC FINDING IN THE CHEST. Assessment & Plan - Diagnosis (1) Sepsis Qualifiers: Sepsis type: sepsis due to unspecified organism Sepsis acute organ dysfunction status: with acute organ dysfunction Severe sepsis acute organ dysfunction type: acute renal failure Severe sepsis shock status: without septic shock Is this a current diagnosis for this admission?: Yes Plan: Chemotherapy probably did decrease his immunity and counts, allowing in part for infection to take place, agree with broad-spectrum antibiotics, white count is normal today, but probably not elevated yet as he would expect with infection because of the recent chemotherapy. Regardless, continue per hospitalist team. (2) Bladder cancer Qualifiers: Bladder location: overlapping sites Qualified Code(s): C67.8 - Malignant neoplasm of overlapping sites of bladder Is this a current diagnosis for this admission?: Yes Plan: We will have to discuss whether further therapy will be possible as an outpatient. (3) Diabetes mellitus Qualifiers: Diabetes mellitus type: type 2 Diabetes mellitus complication status: with hyperglycemia Is this a current diagnosis for this admission?: Yes Plan: Will discuss with hospitalist team, patient feels like he is on higher doses of insulin as an outpatient and would like to be having better control of his blood sugars (4) Renal insufficiency Is this a current diagnosis for this admission?: Yes Plan: More likely secondary to the severe infection, his creatinine was normal as an outpatient, should normalize with hydration - Time Time Spent: Greater than 70 Minutes - Inpatient Certification Based on my medical assessment, after consideration of the patient's comorbidities, presenting symptoms, or acuity I expect that the services needed warrant INPATIENT care.: Yes I certify that my determination is in accordance with my understanding of Medicare's requirements for reasonable and necessary INPATIENT services [42 CFR 412.3e].: Yes Medical Necessity: Need For IV Fluids, Need for IV Antibiotics, Risk of Complication if Not Cared For in Hospital
[2019-09-20] MEDS: DOCUSATE SODIUM 100 MG CAPSULE PO SCH (09:57)
[2019-09-20] MEDS: FAMOTIDINE 20 MG TABLET PO SCH ×2 (09:57→22:18)
[2019-09-20] MEDS: NORMAL SALINE 1000 ML 1,000 ML IV PRN (10:01)
[2019-09-20 13:47] LABS: PATH REVIEW PATHOLOGIST REVIEWED
[2019-09-20] MEDS ORDERED: ONDANSETRON HCL 8 MG TABLET PO PRN (14:41)
[2019-09-20] MEDS ORDERED: PROMETHAZINE HCL 25 MG TABLET PO PRN (14:41)
[2019-09-20] MEDS ORDERED: TRAZODONE HCL 50 MG TABLET PO PRN (14:41)
[2019-09-20] MEDS ORDERED: PROMETHAZINE HCL INJ 25 MG/1 ML VIAL IV PRN (15:00)
[2019-09-20] MEDS: AMLODIPINE BESYLATE 5 MG TABLET PO SCH (17:28)
[2019-09-20] MEDS: CEFTRIAXONE 1 GM/D5W RTU 1 GM/50 ML RTUPB IV SCH (17:29)
[2019-09-20] MEDS: TAMSULOSIN HCL 0.4 MG CAP.SR.24H PO SCH (17:29)
--- NOTE | 2019-09-20 19:04 | PDOC PROGRESS REPORT ---
Subjective Progress Note for:: 09/20/19 Subjective:: CHRIS HUNTER is a 69 year old male with a past medical history of bladder cancer, DM 2, hypertension, diabetic neuropathy with chronic left foot wound, and morbid obesity who was admitted 09/19/2019 for sepsis secondary to urinary tract infection. Patient was seen on afternoon rounds. He was found resting in bed comfortably on room air. He reports that he has continued fatigue and malaise. Also complains of bilateral lower abdominal discomfort; believes he is constipated. He reports urinary frequency but denies urgency or dysuria. He also reports that his nausea and vomiting are significantly improved. Of concern, patient has developed RLE edema. He denies fever, chills, chest pain, palpitations, dyspnea, orthopnea. He has no other questions or concerns at this time. No concerns per nursing. Reason For Visit: SEPSIS,ARA,UTI Physical Exam Vital Signs: Temp Pulse Resp BP Pulse Ox 97.7 F 84 22 H 142/77 H 92 09/20/19 12:00 09/20/19 12:00 09/20/19 12:00 09/20/19 12:00 09/20/19 11:52 Intake & Output 09/19/19 09/20/19 09/21/19 06:59 06:59 06:59 Intake Total 4440 1968 Output Total 350 1100 Balance 4090 868 Weight 149.8 kg General appearance: PRESENT: no acute distress, disheveled - Body odor, morbidly obese, well-developed, well-nourished Head exam: PRESENT: atraumatic, normocephalic Eye exam: PRESENT: conjunctiva pink, EOMI, PERRLA. ABSENT: scleral icterus Mouth exam: PRESENT: moist, tongue midline Teeth exam: PRESENT: poor dentation Respiratory exam: PRESENT: clear to auscultation benny, symmetrical, unlabored. ABSENT: rales, rhonchi, wheezes Cardiovascular exam: PRESENT: RRR, +S1, +S2. ABSENT: diastolic murmur, rubs, systolic murmur Vascular exam: PRESENT: normal capillary refill GI/Abdominal exam: PRESENT: normal bowel sounds, soft, tenderness, other - rotund. ABSENT: distended, guarding, mass, organolmegaly, rebound Rectal exam: PRESENT: deferred Extremities exam: PRESENT: full ROM, +2 edema - RLE. ABSENT: calf tenderness, clubbing, pedal edema Musculoskeletal exam: PRESENT: ambulatory Neurological exam: PRESENT: alert, awake, oriented to person, oriented to place, oriented to time, oriented to situation, CN II-XII grossly intact. ABSENT: motor sensory deficit Psychiatric exam: PRESENT: appropriate affect, normal mood. ABSENT: homicidal ideation, suicidal ideation Skin exam: PRESENT: dry, intact, warm. ABSENT: cyanosis, rash Results Laboratory Results: 09/20/19 06:00 09/20/19 06:00 09/20/19 09/20/19 06:00 06:00 WBC 5.7 RBC 2.57 L Hgb 7.7 L Hct 23.5 L MCV 91 MCH 29.9 MCHC 32.7 RDW 16.3 H Plt Count 134 L Seg Neutrophils % Not Reportable Sodium 137.3 Potassium 4.7 Chloride 106 Carbon Dioxide 24 Anion Gap 7 BUN 22 H Creatinine 1.60 H Est GFR ( Amer) 52 L Glucose 237 H Calcium 8.4 09/19/19 13:19 Blood Blood Culture (PCR) - Final Staphylococcus Species 09/19/19 13:19 Troponin I < 0.012 Impressions: Chest X-Ray 09/19/19 12:37 IMPRESSION: NO SIGNIFICANT RADIOGRAPHIC FINDING IN THE CHEST. Assessment and Plan - Diagnosis (1) Sepsis Qualifiers: Sepsis type: sepsis due to unspecified organism Sepsis acute organ dysfunction status: with acute organ dysfunction Severe sepsis acute organ dysfunction type: acute renal failure Severe sepsis shock status: without septic shock Is this a current diagnosis for this admission?: Yes Plan: Improved; vital signs have normalized, WBCs remain low at 5.7 (possibly related to recent chemotherapy treatment), Lactic acid now normal, creatinine improving. Blood culture (09/19/2019) reveals gram-positive cocci in 2 of 4 bottles Follow-up blood culture in a.m. Urine culture shows gram-negative rods. Continue IV Rocephin. Patient is admitted to the medical floor. We will continue maintenance IV fluids. (2) UTI (urinary tract infection) Qualifiers: Urinary tract infection type: acute cystitis Hematuria presence: with hematuria Qualified Code(s): N30.01 - Acute cystitis with hematuria Is this a current diagnosis for this admission?: Yes Plan: Urinalysis reveals UTI; complicated by history of bladder cancer and recent indwelling catheter (removed approximately 2 weeks ago). Urine culture shows gram-negative rods. Continue IV Rocephin; adjust cultures result. Pyridium as needed for discomfort. (3) ARA (acute kidney injury) Is this a current diagnosis for this admission?: Yes Plan: Secondary to #1; creatinine BUN are improved today. Adequate Urine output. Fluid bolus and maintenance fluids as above. Avoid nephrotoxic medications as able. Monitor daily chemistries. (4) Bladder cancer Qualifiers: Bladder location: overlapping sites Qualified Code(s): C67.8 - Malignant neoplasm of overlapping sites of bladder Is this a current diagnosis for this admission?: Yes Plan: Followed by Dr. Dailey; will consult. Management per his expertise. Analgesics and antiemetics as needed. (5) Type 2 diabetes mellitus Qualifiers: Diabetes mellitus care home insulin use: with vermin exterminator use Diabetes mellitus complication status: with diabetic arthropathy Diabetes mellitus complication detail: with neuropathic arthropathy Qualified Code(s): E11.618 - Type 2 diabetes mellitus with other diabetic arthropathy; Z79.4 - ferry terminal supervisor (current) use of insulin; Z79.4 - ferry terminal supervisor (current) use of insulin; Z79.4 - correction (current) use of insulin; Z79.4 - correction (current) use of insulin Is this a current diagnosis for this admission?: Yes Plan: Consistent carb diet. Lantus 10 units nightly Accu-Cheks before meals and at bedtime with Humalog for sliding scale coverage. Hypoglycemia protocol in place. We will resume home medication regiment once reconciled. (6) Abdominal pain Qualifiers: Abdominal location: lower abdomen, unspecified Qualified Code(s): R10.30 - Lower abdominal pain, unspecified Is this a current diagnosis for this admission?: Yes Plan: Likely multifactorial; patient with UTI, also with constipation. Consider CT imaging if pain does not begin to improve. Continue antibiotics as above. Bowel regimen for constipation. (7) Leg edema, right Is this a current diagnosis for this admission?: Yes Plan: +2 edema to the right lower extremity extending from mid thigh distally. Patient denies tenderness. He is noted to have numerous shallow ulcerations to his lower leg. No clear evidence of cellulitis. Keep extremity elevated. We will obtain ultrasound to evaluate for DVT. - Time Time Spent with patient: 25-34 minutes
[2019-09-20] MEDS: OXYCODONE-ACETAMINOPHEN 5-325 MG TABLET PO PRN (19:50)
[2019-09-20] MEDS ORDERED: HEPARIN SOD (PORCINE) 1,000 UNIT/ML 10 ML VIAL IV ONE (21:30)
[2019-09-20 21:35] LABS: MEAN CORPUSCULAR HEMOGLOBIN 30.3 pg (27.0-33.4); MEAN CORPUSCULAR HGB CONC 33.2 g/dL (32.0-36.0); MEAN CORPUSCULAR VOLUME 91 fl (80-97); PLATELET COUNT 185 10^3/uL (150-450); RED BLOOD COUNT 2.63 10^6/uL (4.35-5.55); RED CELL DISTRIBUTION WIDTH 16.9 % (11.5-14.0)
[2019-09-20 21:39] LABS: APPEARANCE,URINE CLEAR; BILIRUBIN,URINE NEGATIVE (NEGATIVE); GLUCOSE, URINE >=500 mg/dL (NEGATIVE); KETONES,URINE NEGATIVE (NEGATIVE); LEUKOCYTE ESTERASE,URINE MODERATE (NEGATIVE); NITRITE,URINE POSITIVE (NEGATIVE); PROTEIN,URINE 30 mg/dL (NEGATIVE); URINE SPECIFIC GRAVITY 1.014
[2019-09-20 21:40] LABS: COLOR,URINE YELLOW
[2019-09-20 21:59] LABS: INTERNATIONAL RATION (INR) 1.26; PROTHROMBIN TIME 15.9 SEC (11.4-15.4)
[2019-09-20 22:00] LABS: PARTIAL THROMBOPLASTIN TIME 38.1 SEC (23.5-35.8)
[2019-09-20 22:05] LABS: ABSOLUTE LYMPHOCYTES# (MANUAL) 1.9 10^3/uL (0.5-4.7); ABSOLUTE MONOCYTES # (MANUAL) 1.6 10^3/uL (0.1-1.4); BASOPHILS % (MANUAL) 0 % (0-2); EOSINOPHILS % (MANUAL) 1 % (0-6); LYMPHOCYTES % (MANUAL) 31 % (13-45); NUCLEATED RED BLOOD CELLS 3 /100 WBC (0); SEGMENTED NEUTROPHILS % (MAN) 41 % (42-78); TOTAL CELLS COUNTED 100
[2019-09-20 22:07] LABS: ANISOCYTOSIS 1+; SMUDGE CELLS PRESENT
[2019-09-20 22:08] LABS: PLATELET COMMENT ADEQUATE
[2019-09-20 22:09] LABS: MONOCYTES % (MANUAL) 27 % (3-13)
[2019-09-20] MEDS: INSULIN GLARGINE,HUM.REC.ANLOG 1,000 UNIT/10 ML VIAL SUBCUT SCH (22:18)
[2019-09-20] MEDS ORDERED: HEPARIN SOD (PORCINE) 1,000 UNIT/ML 10 ML VIAL IV PRN (23:52)
[2019-09-21] MEDS: HEPARIN SODIUM,PORCINE/D5W 25,000 UNIT/250 ML RTUINJ IV PRN ×2 (00:03→14:22)
--- NOTE | 2019-09-21 02:51 | VASCULAR PRELIM REPORT ---
Provider Note Provider Note: Extensive, chronic DVT noted in the right lower extremity. Discussed with Dr Birmingham at about 2039.
[2019-09-21] MEDS: PHENAZOPYRIDINE HCL 100 MG TABLET PO SCH ×3 (05:37→21:55)
[2019-09-21 06:19] LABS: HEMATOCRIT 24.1 % (37.9-51.0); MEAN CORPUSCULAR HEMOGLOBIN 29.8 pg (27.0-33.4); MEAN CORPUSCULAR HGB CONC 32.6 g/dL (32.0-36.0); MEAN CORPUSCULAR VOLUME 91 fl (80-97); PLATELET COUNT 215 10^3/uL (150-450); RED BLOOD COUNT 2.64 10^6/uL (4.35-5.55); RED CELL DISTRIBUTION WIDTH 16.4 % (11.5-14.0); WHITE BLOOD COUNT 6.8 10^3/uL (4.0-10.5)
[2019-09-21 06:25] LABS: HEMOGLOBIN 7.9 g/dL (13.5-17.0)
[2019-09-21 06:39] LABS: ANION GAP 6 (5-19); BLOOD UREA NITROGEN 19 mg/dL (7-20); CARBON DIOXIDE 23 mmol/L (22-30); CHLORIDE 112 mmol/L (98-107); GLUCOSE 229 mg/dL (75-110); POTASSIUM 4.9 mmol/L (3.6-5.0)
[2019-09-21] MEDS: NORMAL SALINE 1000 ML 1,000 ML IV PRN (06:46)
[2019-09-21 07:17] LABS: APPEARANCE,URINE SLIGHTLY-CLOUDY; BILIRUBIN,URINE NEGATIVE (NEGATIVE); GLUCOSE, URINE 150 mg/dL (NEGATIVE); KETONES,URINE NEGATIVE (NEGATIVE); LEUKOCYTE ESTERASE,URINE MODERATE (NEGATIVE); NITRITE,URINE POSITIVE (NEGATIVE); PROTEIN,URINE 30 mg/dL (NEGATIVE); URINE SPECIFIC GRAVITY 1.015
[2019-09-21 07:18] LABS: COLOR,URINE YELLOW
[2019-09-21] MEDS: OXYCODONE-ACETAMINOPHEN 5-325 MG TABLET PO PRN ×2 (07:38→18:02)
[2019-09-21] MEDS ORDERED: DEXTROSE 40% GEL 15 GM TUBE PO PRN ×2 (08:06)
[2019-09-21] MEDS ORDERED: GLUCAGON,HUMAN RECOMB 1 MG INJ IM PRN (08:06)
[2019-09-21] MEDS ORDERED: DEXTROSE 50%-WATER 25 GM/50 ML DISP.SYRIN IV PRN ×2 (08:06)
[2019-09-21] MEDS ORDERED: VANCOMYCIN HCL 0 MG in DEXTROSE 5%-WATER 250 ML IV NR (08:15)
--- NOTE | 2019-09-21 08:17 | PDOC PROGRESS REPORT ---
Subjective Progress Note for:: 09/21/19 Subjective:: 09/21/2019-right leg pain Reason For Visit: SEPSIS,ARA,UTI Physical Exam Vital Signs: Temp Pulse Resp BP Pulse Ox 98.3 F 76 17 134/76 H 97 09/20/19 23:50 09/20/19 23:50 09/20/19 23:50 09/20/19 23:50 09/20/19 23:50 Intake & Output 09/20/19 09/21/19 09/22/19 06:59 06:59 06:59 Intake Total 4440 3818 Output Total 350 2150 Balance 4090 1668 Weight 149.8 kg 147.5 kg General appearance: PRESENT: no acute distress, well-developed, well-nourished Head exam: PRESENT: atraumatic, normocephalic Eye exam: PRESENT: conjunctiva pink, EOMI, PERRLA. ABSENT: scleral icterus Ear exam: PRESENT: normal external ear exam Mouth exam: PRESENT: moist, tongue midline Neck exam: ABSENT: carotid bruit, JVD, lymphadenopathy, thyromegaly Respiratory exam: PRESENT: clear to auscultation benny. ABSENT: rales, rhonchi, wheezes Cardiovascular exam: PRESENT: RRR. ABSENT: diastolic murmur, rubs, systolic murmur Pulses: PRESENT: normal dorsalis pedis pul Vascular exam: PRESENT: normal capillary refill GI/Abdominal exam: PRESENT: normal bowel sounds, soft. ABSENT: distended, guarding, mass, organolmegaly, rebound, tenderness Rectal exam: PRESENT: deferred Extremities exam: PRESENT: full ROM, pedal edema, +2 edema, other - Right lower extremity edema secondary to large chronic DVT. ABSENT: calf tenderness, clubbing Neurological exam: PRESENT: alert, awake, oriented to person, oriented to place, oriented to time, oriented to situation, CN II-XII grossly intact. ABSENT: motor sensory deficit Psychiatric exam: PRESENT: appropriate affect, normal mood. ABSENT: homicidal ideation, suicidal ideation Skin exam: PRESENT: dry, intact, warm. ABSENT: cyanosis, rash Results Laboratory Results: 09/21/19 06:00 09/21/19 06:00 09/20/19 09/20/19 09/21/19 21:15 21:15 06:00 WBC 6.0 6.8 RBC 2.63 L 2.64 L Hgb 8.0 L 7.9 L Hct 24.0 L 24.1 L MCV 91 91 MCH 30.3 29.8 MCHC 33.2 32.6 RDW 16.9 H 16.4 H Plt Count 185 215 Seg Neutrophils % Not Reportable Sodium Potassium Chloride Carbon Dioxide Anion Gap BUN Creatinine Est GFR ( Amer) Glucose Calcium Urine Color YELLOW Urine Appearance CLEAR Urine pH 6.0 Ur Specific [place] 1.014 Urine Protein 30 H Urine Glucose (UA) >=500 H Urine Ketones NEGATIVE Urine Blood MODERATE H Urine Nitrite POSITIVE H Ur Leukocyte Esterase MODERATE H Urine WBC (Auto) 122 Urine RBC (Auto) 44 09/21/19 09/21/19 06:00 06:00 WBC RBC Hgb Hct MCV MCH MCHC RDW Plt Count Seg Neutrophils % Sodium 140.7 Potassium 4.9 Chloride 112 H Carbon Dioxide 23 Anion Gap 6 BUN 19 Creatinine 1.44 H Est GFR ( Amer) 59 L Glucose 229 H Calcium 9.0 Urine Color YELLOW Urine Appearance SLIGHTLY-CLOUDY Urine pH 6.0 Ur Specific [place] 1.015 Urine Protein 30 H Urine Glucose (UA) 150 H Urine Ketones NEGATIVE Urine Blood LARGE H Urine Nitrite POSITIVE H Ur Leukocyte Esterase MODERATE H Urine WBC (Auto) 125 Urine RBC (Auto) 138 09/19/19 13:19 Blood Blood Culture (PCR) - Final Staphylococcus Species 09/19/19 13:19 Troponin I < 0.012 Impressions: Chest X-Ray 09/19/19 12:37 IMPRESSION: NO SIGNIFICANT RADIOGRAPHIC FINDING IN THE CHEST. Assessment and Plan - Diagnosis (1) Sepsis Qualifiers: Sepsis type: sepsis due to unspecified organism Sepsis acute organ dysfunction status: with acute organ dysfunction Severe sepsis acute organ dysfunction type: acute renal failure Severe sepsis shock status: without septic shock Is this a current diagnosis for this admission?: Yes Plan: Improved; vital signs have normalized, WBCs remain low at 5.7 (possibly related to recent chemotherapy treatment), Lactic acid now normal, creatinine improving. Blood culture (09/19/2019) reveals gram-positive cocci in 2 of 4 bottles Follow-up blood culture in a.m. Urine culture shows gram-negative rods. Continue IV Rocephin. Patient is admitted to the medical floor. We will continue maintenance IV fluids. 09/21/2019-improved. Lactic acidosis has resolved. Will DC IV fluids at this time patient taking p.o. well. Blood culture shows gram positive cocci in clusters I have added vancomycin until cultures return. Urine culture shows E. coli which is susceptible to Rocephin we will continue. (2) UTI (urinary tract infection) Qualifiers: Urinary tract infection type: acute cystitis Hematuria presence: with hematuria Qualified Code(s): N30.01 - Acute cystitis with hematuria Is this a current diagnosis for this admission?: Yes Plan: Urinalysis reveals UTI; complicated by history of bladder cancer and recent indwelling catheter (removed approximately 2 weeks ago). Urine culture shows gram-negative rods. Continue IV Rocephin; adjust cultures result. Pyridium as needed for discomfort. 09/21/2019-continue Rocephin (3) ARA (acute kidney injury) Is this a current diagnosis for this admission?: Yes Plan: Secondary to #1; creatinine BUN are improved today. Adequate Urine output. Fluid bolus and maintenance fluids as above. Avoid nephrotoxic medications as able. Monitor daily chemistries. 09/21/2019-improved. We will continue to avoid nephrotoxic medications monitor chemistries daily DC IV fluids at this time. Patient is taking oral well (4) Bladder cancer Qualifiers: Bladder location: overlapping sites Qualified Code(s): C67.8 - Malignant neoplasm of overlapping sites of bladder Is this a current diagnosis for this admission?: Yes Plan: Followed by Dr. Dailey; will consult. Management per his expertise. Analgesics and antiemetics as needed. 09/21/2019-followed by oncology. (5) Type 2 diabetes mellitus Qualifiers: Diabetes mellitus mcfp insulin use: with mcfp use Diabetes mellitus complication status: with diabetic arthropathy Diabetes mellitus complication detail: with neuropathic arthropathy Qualified Code(s): E11.618 - Type 2 diabetes mellitus with other diabetic arthropathy; Z79.4 - custodial (current) use of insulin; Z79.4 - custodial (current) use of insulin; Z79.4 - custodial (current) use of insulin; Z79.4 - custodial (current) use of insulin Is this a current diagnosis for this admission?: Yes Plan: Consistent carb diet. Lantus 10 units nightly Accu-Cheks before meals and at bedtime with Humalog for sliding scale coverage. Hypoglycemia protocol in place. We will resume home medication regiment once reconciled. 09/21/2019-continues to run high in the 300 range. I have increased his sliding scale insulin to started 200 and increase 4 units of insulin for every 50 units increase in blood sugar. We will continue to follow (6) Abdominal pain Qualifiers: Abdominal location: lower abdomen, unspecified Qualified Code(s): R10.30 - Lower abdominal pain, unspecified Is this a current diagnosis for this admission?: Yes Plan: Likely multifactorial; patient with UTI, also with constipation. Consider CT imaging if pain does not begin to improve. Continue antibiotics as above. Bowel regimen for constipation. 09/21/2019-stable at this time continue to follow (7) Leg edema, right Is this a current diagnosis for this admission?: Yes Plan: +2 edema to the right lower extremity extending from mid thigh distally. Patient denies tenderness. He is noted to have numerous shallow ulcerations to his lower leg. No clear evidence of cellulitis. Keep extremity elevated. We will obtain ultrasound to evaluate for DVT. 09/21/2019-ultrasound was positive for chronic large DVT in the right lower extremity. Patient was placed on heparin drip overnight. I have added for pharmacy to dose Coumadin to get an INR of 2-3 at that time we will DC heparin drip. - Time Time Spent with patient: 15-24 minutes - Inpatient Certification Medical Necessity: Need for Pain Control, Need for IV Antibiotics
[2019-09-21] MEDS ORDERED: INSULIN REG, HUMAN 100 UNIT/ML 3 ML VIAL (PYX) ONE (08:48)
--- NOTE | 2019-09-21 08:51 | XCELERA REPORT ---
[address] [address] Lower Extremity Venous Evaluation Procedure: Color flow and duplex imaging of the veins of the right lower extremity as well as the left Common Femoral vein. Right Sided Venous Evaluation Abnormal vessel filling, no compression or Colour flow , normal sized veins with echogenic content, surrounding loss of tissue definition, from Common Femoral down to the infrageniculate veins. Left Sided Venous Evaluation The left common femoral vein is fully compressible. Spontaneous and phasic flow is present in the left common femoral vein. Critical Findings Discussed with Dr [place]. Interpretation Summary Extensive, chronic DVT in the right lower extremity, Perhaps more extensive distally, than prior study. Name: CHRIS HUNTER Age: 69 yrs Gender: Male : 1950 Patient Status: Inpatient Patient Location: [address] [place] [address] Study Date: 09/20/2019 07:54 PM Reason For Study: RLE EDEMA Ordering Physician: NATHAN SANCHEZ Performed By: Bobbi Francois : NATHAN SANCHEZ > Armin Sumner
[2019-09-21] MEDS: INSULIN REG, HUMAN 100 UNIT/ML 3 ML VIAL (PYX) SUBCUT SCH ×4 (09:00→21:54)
--- NOTE | 2019-09-21 09:31 | PDOC PROGRESS REPORT ---
Subjective Progress Note for:: 09/21/19 Subjective:: Called by DR. Tavares last night, noted new extensive DVT, gave recs for heparin gtt, pt doing ok this am, reviewed cultures has both ucx + Ecoli and Bcx +staph Reason For Visit: SEPSIS,ARA,UTI Physical Exam Vital Signs: Temp Pulse Resp BP Pulse Ox 97.3 F 87 18 117/61 90 L 09/21/19 08:00 09/21/19 08:00 09/21/19 08:00 09/21/19 08:00 09/21/19 08:00 Intake & Output 09/20/19 09/21/19 09/22/19 06:59 06:59 06:59 Intake Total 4440 3818 Output Total 350 2150 Balance 4090 1668 Weight 149.8 kg 147.5 kg General appearance: PRESENT: no acute distress, well-developed, well-nourished Head exam: PRESENT: atraumatic, normocephalic Eye exam: PRESENT: conjunctiva pink, EOMI, PERRLA. ABSENT: scleral icterus Ear exam: PRESENT: normal external ear exam Mouth exam: PRESENT: moist, tongue midline Neck exam: ABSENT: carotid bruit, JVD, lymphadenopathy, thyromegaly Respiratory exam: PRESENT: clear to auscultation benny. ABSENT: rales, rhonchi, wheezes Cardiovascular exam: PRESENT: RRR. ABSENT: diastolic murmur, rubs, systolic murmur Pulses: PRESENT: normal dorsalis pedis pul Vascular exam: PRESENT: normal capillary refill GI/Abdominal exam: PRESENT: normal bowel sounds, soft. ABSENT: distended, guarding, mass, organolmegaly, rebound, tenderness Rectal exam: PRESENT: deferred Extremities exam: PRESENT: full ROM. ABSENT: calf tenderness, clubbing, pedal edema Neurological exam: PRESENT: alert, awake, oriented to person, oriented to place, oriented to time, oriented to situation, CN II-XII grossly intact. ABSENT: motor sensory deficit Psychiatric exam: PRESENT: appropriate affect, normal mood. ABSENT: homicidal ideation, suicidal ideation Skin exam: PRESENT: dry, intact, warm. ABSENT: cyanosis, rash Results Laboratory Results: 09/21/19 06:00 09/21/19 06:00 10/24/19 10/24/19 10/25/19 21:15 21:15 06:00 WBC 6.0 6.8 RBC 2.63 L 2.64 L Hgb 8.0 L 7.9 L Hct 24.0 L 24.1 L MCV 91 91 MCH 30.3 29.8 MCHC 33.2 32.6 RDW 16.9 H 16.4 H Plt Count 185 215 Seg Neutrophils % Not Reportable Sodium Potassium Chloride Carbon Dioxide Anion Gap BUN Creatinine Est GFR ( Amer) Glucose Calcium Urine Color YELLOW Urine Appearance CLEAR Urine pH 6.0 Ur Specific [place] 1.014 Urine Protein 30 H Urine Glucose (UA) >=500 H Urine Ketones NEGATIVE Urine Blood MODERATE H Urine Nitrite POSITIVE H Ur Leukocyte Esterase MODERATE H Urine WBC (Auto) 122 Urine RBC (Auto) 44 09/21/19 09/21/19 06:00 06:00 WBC RBC Hgb Hct MCV MCH MCHC RDW Plt Count Seg Neutrophils % Sodium 140.7 Potassium 4.9 Chloride 112 H Carbon Dioxide 23 Anion Gap 6 BUN 19 Creatinine 1.44 H Est GFR ( Amer) 59 L Glucose 229 H Calcium 9.0 Urine Color YELLOW Urine Appearance SLIGHTLY-CLOUDY Urine pH 6.0 Ur Specific [place] 1.015 Urine Protein 30 H Urine Glucose (UA) 150 H Urine Ketones NEGATIVE Urine Blood LARGE H Urine Nitrite POSITIVE H Ur Leukocyte Esterase MODERATE H Urine WBC (Auto) 125 Urine RBC (Auto) 138 09/19/19 13:19 Blood Blood Culture (PCR) - Final Staphylococcus Species 09/19/19 13:19 Troponin I < 0.012 Impressions: Chest X-Ray 09/19/19 12:37 IMPRESSION: NO SIGNIFICANT RADIOGRAPHIC FINDING IN THE CHEST. Assessment & Plan - Diagnosis (1) Sepsis Qualifiers: Sepsis type: methicillin resistant Staphylococcus aureus Sepsis acute organ dysfunction status: with acute organ dysfunction Severe sepsis acute organ dysfunction type: acute renal failure Severe sepsis shock status: without septic shock Is this a current diagnosis for this admission?: Yes Plan: Reviewed staph species, d/w pharmacy and apparently species although says staph species it's actually coag neg staph and thus most likely a contaminant, so con't ceftriaxone for urosepsis (2) Bladder cancer Qualifiers: Bladder location: overlapping sites Qualified Code(s): C67.8 - Malignant neoplasm of overlapping sites of bladder Is this a current diagnosis for this admission?: Yes Plan: All rx on hold (3) Diabetes mellitus Qualifiers: Diabetes mellitus type: type 2 Diabetes mellitus complication status: with hyperglycemia Is this a current diagnosis for this admission?: Yes Plan: Cont w/ close glucose control (4) Renal insufficiency Is this a current diagnosis for this admission?: Yes Plan: Cont hydration (5) Right femoral vein DVT Qualifiers: Chronicity: acute Qualified Code(s): I82.411 - Acute embolism and thrombosis of right femoral vein Is this a current diagnosis for this admission?: Yes Plan: Con't heparin gtt for now 2nd to ARF, once kidney fxn improves can swithc to lovenox or DOAC, if kidney fxn does not improved to that extent will need warfarin. - Time Time Spent with patient: 35 or more minutes - Inpatient Certification Based on my medical assessment, after consideration of the patient's comorbidities, presenting symptoms, or acuity I expect that the services needed warrant INPATIENT care.: Yes I certify that my determination is in accordance with my understanding of Medicare's requirements for reasonable and necessary INPATIENT services [42 CFR 412.3e].: Yes
[2019-09-21] MEDS ORDERED: INSULIN REG, HUMAN 100 UNIT/ML 3 ML VIAL (PYX) SUBCUT SCH (11:00)
[2019-09-21 11:16] LABS: APPEARANCE,URINE CLOUDY; BILIRUBIN,URINE NEGATIVE (NEGATIVE); GLUCOSE, URINE 50 mg/dL (NEGATIVE); KETONES,URINE TRACE mg/dL (NEGATIVE); LEUKOCYTE ESTERASE,URINE MODERATE (NEGATIVE); NITRITE,URINE POSITIVE (NEGATIVE); PROTEIN,URINE 100 mg/dL (NEGATIVE); URINE SPECIFIC GRAVITY 1.016
[2019-09-21 11:18] LABS: COLOR,URINE DARK YELLOW
[2019-09-21] MEDS: FAMOTIDINE 20 MG TABLET PO SCH ×2 (11:33→21:55)
[2019-09-21] MEDS: FOLIC ACID 1 MG TABLET PO SCH (11:33)
[2019-09-21] MEDS: AMLODIPINE BESYLATE 5 MG TABLET PO SCH (11:33)
[2019-09-21] MEDS: DOCUSATE SODIUM 100 MG CAPSULE PO SCH (11:36)
[2019-09-21 12:13] LABS: PATH REVIEW PATHOLOGIST REVIEWED
[2019-09-21] MEDS: TAMSULOSIN HCL 0.4 MG CAP.SR.24H PO SCH (17:14)
[2019-09-21] MEDS: CEFTRIAXONE 1 GM/D5W RTU 1 GM/50 ML RTUPB IV SCH (17:14)
[2019-09-21] MEDS: INSULIN GLARGINE,HUM.REC.ANLOG 1,000 UNIT/10 ML VIAL SUBCUT SCH (21:53)
[2019-09-21] MEDS: WARFARIN SODIUM 2.5 MG TABLET PO SCH (21:55)
[2019-09-22] MEDS: PHENAZOPYRIDINE HCL 100 MG TABLET PO SCH ×3 (05:06→21:50)
[2019-09-22] MEDS: OXYCODONE-ACETAMINOPHEN 5-325 MG TABLET PO PRN ×3 (05:20→23:31)
[2019-09-22 06:21] LABS: HEMATOCRIT 24.1 % (37.9-51.0); MEAN CORPUSCULAR HEMOGLOBIN 29.7 pg (27.0-33.4); MEAN CORPUSCULAR HGB CONC 32.4 g/dL (32.0-36.0); MEAN CORPUSCULAR VOLUME 92 fl (80-97); PLATELET COUNT 285 10^3/uL (150-450); RED BLOOD COUNT 2.63 10^6/uL (4.35-5.55); WHITE BLOOD COUNT 7.1 10^3/uL (4.0-10.5)
[2019-09-22 06:23] LABS: HEMOGLOBIN 7.8 g/dL (13.5-17.0)
[2019-09-22 06:28] LABS: INTERNATIONAL RATION (INR) 1.19; PROTHROMBIN TIME 15.2 SEC (11.4-15.4)
[2019-09-22 06:45] LABS: ANION GAP 7 (5-19); BLOOD UREA NITROGEN 14 mg/dL (7-20); CALCIUM 8.7 mg/dL (8.4-10.2); CARBON DIOXIDE 23 mmol/L (22-30); CHLORIDE 109 mmol/L (98-107); GLUCOSE 206 mg/dL (75-110); POTASSIUM 4.9 mmol/L (3.6-5.0)
[2019-09-22] MEDS: INSULIN REG, HUMAN 100 UNIT/ML 3 ML VIAL (PYX) SUBCUT SCH ×4 (08:04→21:53)
[2019-09-22] MEDS: HEPARIN SODIUM,PORCINE/D5W 25,000 UNIT/250 ML RTUINJ IV PRN (08:11)
--- NOTE | 2019-09-22 08:30 | PDOC PROGRESS REPORT ---
Subjective Progress Note for:: 09/22/19 Subjective:: 09/21/2019-right leg pain 09/22/2019-no complaints this a.m. Reason For Visit: SEPSIS,ARA,UTI Physical Exam Vital Signs: Temp Pulse Resp BP Pulse Ox 98.6 F 86 16 146/74 H 96 09/21/19 23:23 09/21/19 23:23 09/21/19 23:23 09/21/19 23:23 09/21/19 23:23 Intake & Output 09/21/19 09/22/19 09/23/19 06:59 06:59 06:59 Intake Total 3818 1782 178 Output Total 2150 1825 Balance 1668 -43 178 Weight 147.5 kg 97.4 kg General appearance: PRESENT: no acute distress, well-developed, well-nourished Head exam: PRESENT: atraumatic, normocephalic Eye exam: PRESENT: conjunctiva pink, EOMI, PERRLA. ABSENT: scleral icterus Ear exam: PRESENT: normal external ear exam Mouth exam: PRESENT: moist, tongue midline Neck exam: ABSENT: carotid bruit, JVD, lymphadenopathy, thyromegaly Respiratory exam: PRESENT: clear to auscultation benny. ABSENT: rales, rhonchi, wheezes Cardiovascular exam: PRESENT: RRR. ABSENT: diastolic murmur, rubs, systolic [place] Pulses: PRESENT: normal dorsalis pedis pul Vascular exam: PRESENT: normal capillary refill GI/Abdominal exam: PRESENT: normal bowel sounds, soft. ABSENT: distended, guarding, mass, organolmegaly, rebound, tenderness Rectal exam: PRESENT: deferred Extremities exam: PRESENT: full ROM, pedal edema, +1 edema, other - Right lower extremity edema secondary to DVT. ABSENT: calf tenderness, clubbing Neurological exam: PRESENT: alert, awake, oriented to person, oriented to place, oriented to time, oriented to situation, CN II-XII grossly intact. ABSENT: motor sensory deficit Psychiatric exam: PRESENT: appropriate affect, normal mood. ABSENT: homicidal ideation, suicidal ideation Skin exam: PRESENT: dry, intact, warm. ABSENT: cyanosis, rash Results Laboratory Results: 09/22/19 05:15 09/22/19 05:15 09/21/19 09/22/19 09/22/19 10:40 05:15 05:15 WBC 7.1 RBC 2.63 L Hgb 7.8 L Hct 24.1 L MCV 92 MCH 29.7 MCHC 32.4 RDW 17.0 H Plt Count 285 Sodium 138.8 Potassium 4.9 Chloride 109 H Carbon Dioxide 23 Anion Gap 7 BUN 14 Creatinine 1.25 Est GFR ( Amer) > 60 Glucose 206 H Calcium 8.7 Urine Color DARK YELLOW Urine Appearance CLOUDY Urine pH 6.0 Ur Specific [place] 1.016 Urine Protein 100 H Urine Glucose (UA) 50 H Urine Ketones TRACE H Urine Blood LARGE H Urine Nitrite POSITIVE H Ur Leukocyte Esterase MODERATE H Urine WBC (Auto) >182 Urine RBC (Auto) >182 09/19/19 13:19 Blood Blood Culture (PCR) - Final Staphylococcus Species 09/19/19 13:19 Troponin I < 0.012 Impressions: Chest X-Ray 09/19/19 12:37 IMPRESSION: NO SIGNIFICANT RADIOGRAPHIC FINDING IN THE CHEST. Assessment and Plan - Diagnosis (1) Sepsis Qualifiers: Sepsis type: methicillin resistant Staphylococcus aureus Sepsis acute organ dysfunction status: with acute organ dysfunction Severe sepsis acute organ dysfunction type: acute renal failure Severe sepsis shock status: without septic shock Is this a current diagnosis for this admission?: Yes Plan: Improved; vital signs have normalized, WBCs remain low at 5.7 (possibly related to recent chemotherapy treatment), Lactic acid now normal, creatinine improving. Blood culture (09/19/2019) reveals gram-positive cocci in 2 of 4 bottles Follow-up blood culture in a.m. Urine culture shows gram-negative rods. Continue IV Rocephin. Patient is admitted to the medical floor. We will continue maintenance IV fluids. 09/21/2019-improved. Lactic acidosis has resolved. Will DC IV fluids at this time patient taking p.o. well. Blood culture shows gram positive cocci in clusters I have added vancomycin until cultures return. Urine culture shows E. coli which is susceptible to Rocephin we will continue. 09/22/2019-stable. Vancomycin DC'd secondary to culture findings. Patient remains on Rocephin. We will continue to follow (2) UTI (urinary tract infection) Qualifiers: Urinary tract infection type: acute cystitis Hematuria presence: with hematuria Qualified Code(s): N30.01 - Acute cystitis with hematuria Is this a current diagnosis for this admission?: Yes Plan: Urinalysis reveals UTI; complicated by history of bladder cancer and recent indwelling catheter (removed approximately 2 weeks ago). Urine culture shows gram-negative rods. Continue IV Rocephin; adjust cultures result. Pyridium as needed for discomfort. 09/21/2019-continue Rocephin 09/22/2019-Rocephin continues (3) ARA (acute kidney injury) Is this a current diagnosis for this admission?: Yes Plan: Secondary to #1; creatinine BUN are improved today. Adequate Urine output. Fluid bolus and maintenance fluids as above. Avoid nephrotoxic medications as able. Monitor daily chemistries. 09/21/2019-improved. We will continue to avoid nephrotoxic medications monitor chemistries daily DC IV fluids at this time. Patient is taking oral well 09/16/2019-stable continue to follow daily BMP (4) Bladder cancer Qualifiers: Bladder location: overlapping sites Qualified Code(s): C67.8 - Malignant neoplasm of overlapping sites of bladder Is this a current diagnosis for this admission?: Yes Plan: Followed by Dr. Dailey; will consult. Management per his expertise. Analgesics and antiemetics as needed. 09/21/2019-followed by oncology. 09/22/2019-oncology continue to follow (5) Type 2 diabetes mellitus Qualifiers: Diabetes mellitus intermodal dispatcher insulin use: with intermodal dispatcher use Diabetes mellitus complication status: with diabetic arthropathy Diabetes mellitus complication detail: with neuropathic arthropathy Qualified Code(s): E11.618 - Type 2 diabetes mellitus with other diabetic arthropathy; Z79.4 - shelter (current) use of insulin; Z79.4 - long term care administrator (current) use of insulin; Z79.4 - shelter (current) use of insulin; Z79.4 - shelter (current) use of insulin Is this a current diagnosis for this admission?: Yes Plan: Consistent carb diet. Lantus 10 units nightly Accu-Cheks before meals and at bedtime with Humalog for sliding scale coverage. Hypoglycemia protocol in place. We will resume home medication regiment once reconciled. 09/21/2019-continues to run high in the 300 range. I have increased his sliding scale insulin to started 200 and increase 4 units of insulin for every 50 units increase in blood sugar. We will continue to follow 09/22/2019-remains high. Will increase Lantus to 20 units daily continue to follow (6) Abdominal pain Qualifiers: Abdominal location: lower abdomen, unspecified Qualified Code(s): R10.30 - Lower abdominal pain, unspecified Is this a current diagnosis for this admission?: Yes Plan: Likely multifactorial; patient with UTI, also with constipation. Consider CT imaging if pain does not begin to improve. Continue antibiotics as above. Bowel regimen for constipation. 09/21/2019-stable at this time continue to follow 09/22/2019-stable no complaints of pain at this time (7) Leg edema, right Is this a current diagnosis for this admission?: Yes Plan: +2 edema to the right lower extremity extending from mid thigh distally. Patient denies tenderness. He is noted to have numerous shallow ulcerations to his lower leg. No clear evidence of cellulitis. Keep extremity elevated. We will obtain ultrasound to evaluate for DVT. 09/21/2019-ultrasound was positive for chronic large DVT in the right lower extremity. Patient was placed on heparin drip overnight. I have added for pharmacy to dose Coumadin to get an INR of 2-3 at that time we will DC heparin drip. 09/22/2019-patient remains on heparin and Coumadin was started yesterday target INR of 2-3. - Time Time Spent with patient: 15-24 minutes - Inpatient Certification Based on my medical assessment, after consideration of the patient's comorbidi ties, presenting symptoms, or acuity I expect that the services needed warrant INPATIENT care.: Yes I certify that my determination is in accordance with my understanding of Sarah barnes's requirements for reasonable and necessary INPATIENT services [42 CFR 412.3e].: Yes Medical Necessity: Other - IV heparin
[2019-09-22] MEDS: FOLIC ACID 1 MG TABLET PO SCH (09:30)
[2019-09-22] MEDS: AMLODIPINE BESYLATE 5 MG TABLET PO SCH (09:30)
[2019-09-22] MEDS: FAMOTIDINE 20 MG TABLET PO SCH ×2 (09:30→21:49)
[2019-09-22] MEDS: DOCUSATE SODIUM 100 MG CAPSULE PO SCH ×2 (09:30→09:36)
[2019-09-22] MEDS: INSULIN GLARGINE,HUM.REC.ANLOG 1,000 UNIT/10 ML VIAL SUBCUT SCH (09:31)
[2019-09-22] MEDS: TAMSULOSIN HCL 0.4 MG CAP.SR.24H PO SCH (17:26)
[2019-09-22] MEDS: CEFTRIAXONE 1 GM/D5W RTU 1 GM/50 ML RTUPB IV SCH (17:26)
[2019-09-22] MEDS: WARFARIN SODIUM 2.5 MG TABLET PO SCH (21:51)
[2019-09-23] MEDS: HEPARIN SODIUM,PORCINE/D5W 25,000 UNIT/250 ML RTUINJ IV PRN (01:04)
[2019-09-23] MEDS: OXYCODONE-ACETAMINOPHEN 5-325 MG TABLET PO PRN (07:00)
[2019-09-23] MEDS: PHENAZOPYRIDINE HCL 100 MG TABLET PO SCH (07:00)
[2019-09-23 07:38] LABS: HEMATOCRIT 26.2 % (37.9-51.0); HEMOGLOBIN 8.6 g/dL (13.5-17.0); MEAN CORPUSCULAR HEMOGLOBIN 30.1 pg (27.0-33.4); MEAN CORPUSCULAR HGB CONC 32.9 g/dL (32.0-36.0); MEAN CORPUSCULAR VOLUME 92 fl (80-97); PLATELET COUNT 390 10^3/uL (150-450); RED BLOOD COUNT 2.86 10^6/uL (4.35-5.55); RED CELL DISTRIBUTION WIDTH 17.7 % (11.5-14.0); WHITE BLOOD COUNT 9.9 10^3/uL (4.0-10.5)
[2019-09-23 07:47] LABS: INTERNATIONAL RATION (INR) 1.11; PROTHROMBIN TIME 14.4 SEC (11.4-15.4)
[2019-09-23 08:07] LABS: ANION GAP 10 (5-19); BLOOD UREA NITROGEN 13 mg/dL (7-20); CALCIUM 9.4 mg/dL (8.4-10.2); CARBON DIOXIDE 22 mmol/L (22-30); CHLORIDE 109 mmol/L (98-107); GLUCOSE 193 mg/dL (75-110); POTASSIUM 4.8 mmol/L (3.6-5.0)
[2019-09-23] MEDS: INSULIN REG, HUMAN 100 UNIT/ML 3 ML VIAL (PYX) SUBCUT SCH ×2 (08:27→12:17)
[2019-09-23] MEDS: DOCUSATE SODIUM 100 MG CAPSULE PO SCH (09:16)
[2019-09-23] MEDS: FOLIC ACID 1 MG TABLET PO SCH (09:16)
[2019-09-23] MEDS: AMLODIPINE BESYLATE 5 MG TABLET PO SCH (09:16)
[2019-09-23] MEDS: INSULIN GLARGINE,HUM.REC.ANLOG 1,000 UNIT/10 ML VIAL SUBCUT SCH (09:17)
[2019-09-23] MEDS: FAMOTIDINE 20 MG TABLET PO SCH (09:17)
[2019-09-23] MEDS ORDERED: APIXABAN 2.5 MG TABLET PO SCH (10:00)
--- NOTE | 2019-09-23 10:45 | Progress Note ---
Provider Note Provider Note: asked by Kathie Wade to eval the left foot wound for possible bleeding and reassure pt left lower ext unna boot removed there is a 2cm clean base ulcer on lat aspect of left foot, no bleeing the surgiciel that was placed on tuesday removed recommend xeroform to ulcer wrap again with unna boot then with kerlix gauze and coban pt should f/u in wound clinic next wk ok to restart anticoag for his dvt.
[2019-09-23 12:29] VITALS: BP 136/79
--- NOTE | 2019-09-23 16:09 | PDOC DISCHARGE SUMMARY ---
Impression - Admit/DC Date/PCP Admission Date/Primary Care Provider: 09/19/19 15:49 NATTY HERNANDEZ MD Discharge Date: 09/23/19 - Discharge Diagnosis (1) Sepsis Is this a current diagnosis for this admission?: Yes (2) UTI (urinary tract infection) Is this a current diagnosis for this admission?: Yes (3) ARA (acute kidney injury) Is this a current diagnosis for this admission?: Yes (4) Bladder cancer Is this a current diagnosis for this admission?: Yes (5) Type 2 diabetes mellitus Is this a current diagnosis for this admission?: Yes (6) Abdominal pain Is this a current diagnosis for this admission?: Yes (7) Leg edema, right Is this a current diagnosis for this admission?: Yes (8) Right femoral vein DVT Is this a current diagnosis for this admission?: Yes (9) Diabetic foot ulcer Is this a current diagnosis for this admission?: Yes - Additional Information Resuscitation Status: Full Code Discharge Diet: Cardiac, Diabetic Discharge Activity: Activity As Tolerated, Balance Activity w/Rest, Slowly Increase Activity Referrals: NATTY HERNANDEZ MD [Primary Care Provider] - Follow up as needed Prescriptions: Ciprofloxacin HCl [Cipro 500 mg Tablet] 500 mg PO BID #14 tablet Apixaban [Eliquis 2.5 mg Tablet] 2.5 mg PO Q12 #60 tablet Oxycodone HCl/Acetaminophen [Percocet 5-325 mg Tablet] 1 tab PO Q4HP PRN #12 tablet PRN Reason: Home Medications: Amlodipine Besylate [Norvasc 5 mg Tablet] 5 mg PO DAILY 09/19/19 Folic Acid [Folvite 1 mg Tablet] 1 mg PO DAILY 09/19/19 Insulin Glargine,Hum.rec.anlog [Lantus Insulin 100 Unit/1 ml 10 ml] 100 units SQ QHS 09/19/19 Insulin Lispro [Humalog Insulin (Lispro) 100 unit/mL] 16 units SQ MEALS 09/19/19 Ondansetron HCl [Zofran 8 mg Tablet] 8 mg PO Q8HP PRN 09/19/19 Promethazine HCl [Phenergan 25 mg Tablet] 25 mg PO Q8HP PRN 09/19/19 Tamsulosin HCl [Flomax 0.4 mg Cap.sr] 0.4 mg PO QPM 09/19/19 Trazodone HCl [Desyrel 50 mg Tablet] 100 mg PO HSP PRN 09/19/19 Acetaminophen [Tylenol 325 mg Tablet] 650 mg PO Q4HP PRN tablet 09/23/19 Apixaban [Eliquis 2.5 mg Tablet] 2.5 mg PO Q12 #60 tablet 09/23/19 Ciprofloxacin HCl [Cipro 500 mg Tablet] 500 mg PO BID #14 tablet 09/23/19 Docusate Sodium [Colace 100 mg Capsule] 100 mg PO DAILY capsule 09/23/19 Oxycodone HCl/Acetaminophen [Percocet 5-325 mg Tablet] 1 tab PO Q4HP PRN #12 tablet 09/23/19 History of Present Illiness History of Present Illness: CHRIS HUNTER is a 69 year old male with a past medical history of bladder cancer, DM 2, hypertension, diabetic neuropathy with chronic left foot wound, and morbid obesity who presented to the emergency department today with a complaint of nausea and vomiting. Evaluation in the emergency department revealed mild tachycardia (heart rate 102), hypotension (99/69), tachypnea (respiratory rate 25), baseline anemia (hemoglobin 9.1), mild hyperkalemia at 5.1, acute kidney injury with a creatinine of 1.8 and BUN of 25 (baseline 1.2) elevated lactic acid at 3.6, and urinalysis positive for urinary tract infection. He is started on IV fluid bolus per sepsis protocol and referred to the hospitalist service for admission and management of the above-stated complaints and findings. Hospital Course Hospital Course: (1) Sepsis Resolved; vital signs have normalized, WBCs nml, Lactic acidosis now normal, creatinine at baseline Blood culture (09/19/2019) revealed staph epi. Follow-up blood cultures are negative. Urine culture shows E.coli and Morganella morganii. Received adequate IV fluid bolus by ED provider followed by maintenance fluids. Patient received IV Rocephin x 4 days. Transitioned to p.o. Cipro for completion of antibiotic therapy post discharge. (2) UTI (urinary tract infection) Urinalysis reveals UTI; complicated by history of bladder cancer and recent indwelling catheter (removed approximately 2 weeks ago). Urine culture shows E.coli and Morganella morganii. Patient received IV Rocephin x 4 days. Transitioned to p.o. Cipro for completion of antibiotic therapy post discharge. (3) ARA (acute kidney injury) Resolved. Secondary to #1. (4) Bladder cancer Followed by Dr. Dailey; management per his expertise. Follow up as outpatient. (5) Type 2 diabetes mellitus Consistent carb diet. Resume outpatient regiment at discharge. (6) Abdominal pain Resolved. Likely secondary to UTI. (7) Leg edema, right Secondary to DVT; management as below. (8) Right femoral vein DVT Venous Doppler revealed extensive right femoral DVT. Patient was initially placed on heparin drip due to renal function with plans to transition to Coumadin. His EGFR is no return to normal. Discussed with oncology today; patient would be a candidate for renally dosed Eliquis. He is discharged home on Eliquis 2.5 mg twice daily. (9) Diabetic foot ulcer Chronic; Evaluated by Dr. Partida prior to discharge. There is a 2 cm clean-based ulcer on the lateral aspect of the left foot without bleeding at this time. Wound care recommendations for Xeroform to the ulcer followed by Lilli ricks and [place]lia gauze with Coban. Patient should follow-up in the wound care clinic next week. Cleared to continue anticoagulation therapy for DVT. Physical Exam Vital Signs: Temp Pulse Resp BP Pulse Ox 98.2 F 90 19 136/79 H 96 09/23/19 12:00 09/23/19 12:00 09/23/19 12:00 09/23/19 12:00 09/23/19 12:00 Intake & Output 09/22/19 09/23/19 09/24/19 06:59 06:59 06:59 Intake Total 1782 1497 326 Output Total 182 1900 250 Balance -43 -403 76 Weight 97.4 kg General appearance: PRESENT: no acute distress, disheveled, obese, well- developed, well-nourished Head exam: PRESENT: atraumatic, normocephalic Eye exam: PRESENT: conjunctiva pink, EOMI, PERRLA. ABSENT: scleral icterus Mouth exam: PRESENT: moist, tongue midline Neck exam: ABSENT: carotid bruit, JVD, lymphadenopathy, thyromegaly Respiratory exam: PRESENT: clear to auscultation benny, symmetrical, unlabored. ABSENT: rales, rhonchi, wheezes Cardiovascular exam: PRESENT: RRR. ABSENT: diastolic murmur, rubs, systolic murmur Pulses: PRESENT: normal dorsalis pedis pul Vascular exam: PRESENT: normal capillary refill GI/Abdominal exam: PRESENT: normal bowel sounds, soft. ABSENT: distended, guarding, mass, organolmegaly, rebound, tenderness Rectal exam: PRESENT: deferred Extremities exam: PRESENT: full ROM, +1 edema - Right lower extremity edema secondary to DVT. ABSENT: calf tenderness, clubbing, pedal edema Neurological exam: PRESENT: alert, awake, oriented to person, oriented to place, oriented to time, oriented to situation, CN II-XII grossly intact. ABSENT: motor sensory deficit Psychiatric exam: PRESENT: appropriate affect, normal mood. ABSENT: homicidal ideation, suicidal ideation Skin exam: PRESENT: dry, warm, other - left chronic foot wound. ABSENT: cyanosis, rash Results Laboratory Results: WBC 9.9 10^3/uL (4.0-10.5) 09/23/19 06:40 RBC 2.86 10^6/uL (4.35-5.55) L 09/23/19 06:40 Hgb 8.6 g/dL (13.5-17.0) L 09/23/19 06:40 Hct 26.2 % (37.9-51.0) L 09/23/19 06:40 MCV 92 fl (80-97) 09/23/19 06:40 MCH 30.1 pg (27.0-33.4) 09/23/19 06:40 MCHC 32.9 g/dL (32.0-36.0) 09/23/19 06:40 RDW 17.7 % (11.5-14.0) H 09/23/19 06:40 Plt Count 390 10^3/uL (150-450) 09/23/19 06:40 Lymph % (Auto) Not Reportable 09/20/19 21:15 [place] % (Auto) Not Reportable 09/20/19 21:15 Eos % (Auto) Not Reportable 09/20/19 21:15 Baso % (Auto) Not Reportable 09/20/19 21:15 Absolute Neuts (auto) Not Reportable 09/20/19 21:15 Absolute Lymphs (auto) Not Reportable 09/20/19 21:15 Absolute Monos (auto) Not Reportable 09/20/19 21:15 Absolute Eos (auto) Not Reportable 09/20/19 21:15 Absolute Basos (auto) Not Reportable 09/20/19 21:15 Total Counted 100 09/20/19 21:15 Seg Neutrophils % Not Reportable 09/20/19 21:15 Seg Neuts % (Manual) 41 % (42-78) L 09/20/19 21:15 Band Neutrophils % 2 % (3-5) L 09/20/19 06:00 Lymphocytes % (Manual) 31 % (13-45) 09/20/19 21:15 Atypical Lymphs % 3 % (0) 09/19/19 13:19 Monocytes % (Manual) 27 % (3-13) H 09/20/19 21:15 Eosinophils % (Manual) 1 % (0-6) 09/20/19 21:15 Basophils % (Manual) 0 % (0-2) 09/20/19 21:15 Abs Neuts (Manual) 2.5 10^3/uL (1.7-8.2) 09/20/19 21:15 Abs Lymphs (Manual) 1.9 10^3/uL (0.5-4.7) 09/20/19 21:15 Abs Monocytes (Manual) 1.6 10^3/uL (0.1-1.4) H 09/20/19 21:15 Absolute Eos (Manual) 0.1 10^3/uL (0.0-0.6) 09/20/19 21:15 Abs Basophils (Manual) 0.0 10^3/uL (0.0-0.2) 09/20/19 21:15 Nucleated RBCs 3 /100 WBC (0) 09/20/19 21:15 Smudge Cells PRESENT 09/20/19 21:15 Platelet Comment ADEQUATE 09/20/19 21:15 Polychromasia SLIGHT 09/20/19 06:00 Poikilocytosis SLIGHT 09/20/19 06:00 Anisocytosis 1+ 09/20/19 21:15 Ovalocytes SLIGHT 09/20/19 06:00 Schistocytes SLIGHT 09/20/19 06:00 PT 14.4 SEC (11.4-15.4) 09/23/19 06:40 INR 1.11 09/23/19 06:40 APTT 81.0 SEC (23.5-35.8) H 09/23/19 06:40 VBG pH 7.36 (7.30-7.42) 09/19/19 15:11 VBG pCO2 42.4 mmHg (35-63) 09/19/19 15:11 VBG HCO3 23.2 mmol/L (20-32) 09/19/19 15:11 VBG Base Excess -2.2 mmol/L 09/19/19 15:11 Sodium 141.2 mmol/L (137-145) 09/23/19 06:40 Potassium 4.8 mmol/L (3.6-5.0) 09/23/19 06:40 Chloride 109 mmol/L (98-107) H 09/23/19 06:40 Carbon Dioxide 22 mmol/L (22-30) 09/23/19 06:40 Anion Gap 10 (-19) 09/23/19 06:40 BUN 13 mg/dL (7-20) 09/23/19 06:40 Creatinine 1.31 mg/dL (0.52-1.25) H 09/23/19 06:40 Est GFR ( Amer) > 60 (>60) 09/23/19 06:40 Est GFR (MDRD) Non-Af 54 (>60) L 09/23/19 06:40 Glucose 193 mg/dL (75-110) H 09/23/19 06:40 POC Glucose 280 mg/dL (70-110) H 09/23/19 11:00 Lactic Acid 1.6 mmol/L (0.7-2.1) 09/19/19 16:30 Calcium 9.4 mg/dL (8.4-10.2) 09/23/19 06:40 Total Bilirubin 0.4 mg/dL (0.2-1.3) 09/19/19 13:19 Direct Bilirubin 0.2 mg/dL (0.0-0.4) 09/19/19 13:19 Neonat Total Bilirubin Not Reportable 09/19/19 13:19 Neonat Direct Bilirubin Not Reportable 09/19/19 13:19 Neonat Indirect Bili Not Reportable 09/19/19 13:19 AST 23 U/L (17-59) 09/19/19 13:19 ALT 21 U/L (<50) 09/19/19 13:19 Alkaline Phosphatase 138 U/L (38-126) H 09/19/19 13:19 Troponin I < 0.012 ng/mL 09/19/19 13:19 Total Protein 7.1 g/dL (6.3-8.2) 09/19/19 13:19 Albumin 3.4 g/dL (3.5-5.0) L 09/19/19 13:19 Urine Color DARK YELLOW 09/21/19 10:40 Urine Appearance CLOUDY 09/21/19 10:40 Urine pH 6.0 (5.0-9.0) 09/21/19 10:40 Ur Specific [place] 1.016 09/21/19 10:40 Urine Protein 100 mg/dL (NEGATIVE) H 09/21/19 10:40 Urine Glucose (UA) 50 mg/dL (NEGATIVE) H 09/21/19 10:40 Urine Ketones TRACE mg/dL (NEGATIVE) H 09/21/19 10:40 Urine Blood LARGE (NEGATIVE) H 09/21/19 10:40 Urine Nitrite POSITIVE (NEGATIVE) H 09/21/19 10:40 Urine Nitrite (Reflex) POSITIVE (NEGATIVE) H 09/19/19 16:10 Urine Bilirubin NEGATIVE (NEGATIVE) 09/21/19 10:40 Urine Urobilinogen 4.0 mg/dL (<2.0) H 09/21/19 10:40 Ur Leukocyte Esterase MODERATE (NEGATIVE) H 09/21/19 10:40 Leukocyte Esterase Rfl LARGE (NEGATIVE) H 09/19/19 16:10 Urine WBC (Auto) >182 /HPF 09/21/19 10:40 Urine RBC (Auto) >182 /HPF 09/21/19 10:40 U Hyaline Cast (Auto) 20 /LPF 09/21/19 10:40 Urine Bacteria (Auto) TRACE /HPF 09/21/19 10:40 Urine WBC (Reflex) > 182 /HPF 09/19/19 16:10 Urine WBC Clumps MANY /HPF 09/21/19 10:40 Squamous Epi Cells Auto 1 /HPF 09/21/19 10:40 U Non-Squamous Epis Auto 1 /HPF 09/21/19 10:40 Urine Mucus (Auto) RARE /LPF 09/21/19 10:40 Urine Ascorbic Acid NEGATIVE (NEGATIVE) 09/21/19 10:40 Slides for Path Review PATHOLOGIST REVIEWED 09/20/19 21:15 09/19/19 13:19 Troponin I < 0.012 Impressions: Chest X-Ray 09/19/19 12:37 IMPRESSION: NO SIGNIFICANT RADIOGRAPHIC FINDING IN THE CHEST. Plan Plan of Treatment: Follow up with primary care provider within 1 week. Follow up with Dr. Dailey as scheduled. Follow up with the [facility] as scheduled. Take medications as prescribed. Eat a consistent carb diet. Drink plenty of water. Return to the emergency department as needed for concerning symptoms. Time Spent: Greater than 30 Minutes Stroke Is this a Stroke Patient?: No Acute Heart Failure - Is this a Heart Failure Patient?: No
== END 2019-09-23 13:25 | disposition home or self-care (01) | DRG 872 ==
LOC: ER 12:35 → EH 15:49 → 5 20:12
PROVIDERS: ADMIT Internal Medicine; ATTEND Internal Medicine
DX: A41.9 Sepsis, unspecified organism (principal); N30.01 Acute cystitis with hematuria; N17.9 Acute kidney failure, unspecified; L97.919 Non-pressure chronic ulcer of unspecified part of right lower leg with unspecified severity; I82.411 Acute embolism and thrombosis of right femoral vein; N39.0 Urinary tract infection, site not specified; R65.20 Severe sepsis without septic shock; Z79.4 Long term (current) use of insulin; E11.610 Type 2 diabetes mellitus with diabetic neuropathic arthropathy; E11.621 Type 2 diabetes mellitus with foot ulcer; L97.529 Non-pressure chronic ulcer of other part of left foot with unspecified severity; E66.01 Morbid (severe) obesity due to excess calories; C67.8 Malignant neoplasm of overlapping sites of bladder; K59.00 Constipation, unspecified; E11.622 Type 2 diabetes mellitus with other skin ulcer; E11.65 Type 2 diabetes mellitus with hyperglycemia; B96.4 Proteus (mirabilis) (morganii) as the cause of diseases classified elsewhere; B96.20 Unspecified Escherichia coli [E. coli] as the cause of diseases classified elsewhere; Z79.02 Long term (current) use of antithrombotics/antiplatelets; Z79.899 Other long term (current) drug therapy
CPT/HCPCS: 36415; 71045; 80048; 80053; 81001; 82803; 82962; 83605; 84484; 85025; 85027; 85610; 85730; 87040; 87077; 87086; 87088; 87150; 87186; 93005; 93010; 93971; 96360; 99285; J0696; J1642; J1644; J1815; J3490; J7030; J7120

== ENCOUNTER → 2019-10-15 | Outpatient (CLI) | payer MEDICARE, OTHER ==
--- NOTE | 2019-10-15 09:11 | RADIOLOGY REPORT (SQ) ---
EXAM DESCRIPTION: CT CHEST WITHOUT; CT ABD/PELVIS NO ORAL OR IV COMPLETED DATE/TIME: 10/15/2019 8:06 am; 10/15/2019 8:08 am REASON FOR STUDY: BLADDER CA (C67.5) C67.5 MALIGNANT NEOPLASM OF BLADDER NECK COMPARISON: PET-CT 07/24/2019 CT abdomen pelvis 07/02/2019 CONTRAST TYPE AND DOSE: No IV contrast RENAL FUNCTION: Not required TECHNIQUE: CT scan of the chest performed using helical scanning technique without intravenous contr ast injection. Images reviewed with lung, soft tissue and bone windows. Reconstructed coronal and sa gittal MPR images reviewed. All images stored on PACS. CT scan of the abdomen and pelvis performed without intravenous and without oral contrastusing helica l scanning technique with dynamic intravenous contrast injection. Images reviewed with lung, soft ti ssue and bone windows. Reconstructed coronal and sagittal MPR images reviewed. Delayed images for e valuation of the urinary system also acquired and evaluated. All images stored on PACS. All CT scanners at this facility use dose modulation, iterative reconstruction, and/or weight based d osing when appropriate to reduce radiation dose to as low as reasonably achievable (ALARA). [facility]: Dose Right [facility]: CareDose [facility]: Dose Right [facility]: Teradose 4D [facility]: [employer] RADIATION DOSE: CT Rad equipment meets quality standard of care and radiation dose reduction techniq ues were employed. CTDIvol: 24.8 - 29.4 mGy. DLP: 3038 mGy-cm. . LIMITATIONS: None. FINDINGS: CHEST: LUNGS AND PLEURA: No opacities, nodules, masses. No pneumothorax. No effusions. HILAR AND MEDIASTINAL STRUCTURES: No identified masses or abnormal nodes. HEART AND VASCULAR STRUCTURES: No aneurysm or dissection. No central pulmonary emboli. No pericardi al effusion. HARDWARE: Right-sided permanent central line tip superior vena cava THYROID AND OTHER SOFT TISSUES: No masses. No adenopathy. BONES: No significant finding. OTHER: No other significant finding. ABDOMEN AND PELVIS: LIVER: Normal size. No masses. No dilated ducts. SPLEEN: Normal size. No focal lesions. PANCREAS: No masses. No significant calcifications. No adjacent inflammation or peripancreatic fluid collections. Pancreatic duct not dilated. GALLBLADDER: No identified stones by CT criteria. No inflammatory changes to suggest cholecystitis. ADRENAL GLANDS: No significant masses or asymmetry. RIGHT KIDNEY AND URETER: No solid masses. No significant calcification. No hydronephrosis or hydroure ter. LEFT KIDNEY AND URETER: Since the prior exams, the patient has developed moderate left hydronephrosis and hydroureter down to the ureterovesical junction. There is mild perinephric stranding. A distal left ureteral nonobstructive 2 to 3 mm calculus is present in the distal ureter without causing obst ruction, best shown on axial image 88. Distal ureter is obstructed by bladder mass at the left bladd er trigone. Left kidney demonstrates no cysts or masses. AORTA AND VESSELS: No aneurysm. No dissection. Renal arteries, SMA, celiac without stenosis. RETROPERITONEUM: Retroperitoneal/ adenopathy as follows: 3 x 2 cm left common iliac lymph node axial image 78 (was 1.8 x 1.3 cm on 07/02/2019) 2 x 1.3 cm right external iliac lymph node axial image 88 (was 1 x 0.7 cm on 07/02/2019). BOWEL AND PERITONEAL CAVITY: No masses or inflammatory changes. No free fluid or peritoneal masses. APPENDIX: Normal. ABDOMINAL WALL: No masses. No hernias. PELVIS: Abnormal urinary bladder, along the leftward bladder trigone a 6 x 5 x 4 cm mass is present w ith calcification along the luminal surface (was 7 cm in greatest diameter in June 2019). There is a new 13 mm lymph node in the space of Retzius on axial image 91. Leftward bladder mass obstructs t he distal left ureter causing moderate left hydronephrosis, new since the prior exams. There are multiple small subcentimeter pelvic lymph nodes along the right and left internal iliac floridalma ins marked with arrows, new compared to previous exams. No free pelvic fluid. No worrisome inguinal adenopathy. BONES: No significant or acute findings. OTHER: No other significant finding. IMPRESSION: Unremarkable CT chest Since June 2019, patient has developed moderate left hydronephrosis and hydroureter from distal lef t ureteral obstruction at the bladder trigone from known bladder mass. There is also progression of pelvic and retroperitoneal adenopathy. TECHNICAL DOCUMENTATION: JOB ID: [id number] Quality ID # [id number]: Final reports with documentation of one or more dose reduction techniques (e.g., Au tomated exposure control, adjustment of the mA and/or kV according to patient size, use of iterative reconstruction technique) 2010 [employer]- All Rights Reserved Reading location - IP/workstation name: [email or web address]
== END ==
LOC: RAD 07:41
PROVIDERS: ATTEND Internal Medicine
DX: C67.5 Malignant neoplasm of bladder neck (principal)
CPT/HCPCS: 71250; 74176

== ENCOUNTER 2019-10-18 11:42 | Outpatient (CLI) | payer MEDICARE, OTHER ==
[~2019-10-18 11:42] MED LIST changes: +ACETAMINOPHEN 325 MG TABLET PO PRN; -CEFAZOLIN 1 GM/D5W RTU 1 GM/50 ML RTUPB IV PRN; -DEXTROSE 5%-1/2 NORMAL SALINE 1,000 ML IV PRN; -DIAZEPAM 5 MG TABLET PO PRN; +DIPHENHYDRAMINE HCL 25 MG CAPSULE PO PRN; +FUROSEMIDE INJ/PF 20 MG/2 ML SDV IV PRN; -OXYCODONE-ACETAMINOPHEN 5-325 MG TABLET PO PRN
[2019-10-18] MEDS ORDERED: NORMAL SALINE 250 ML IV PRN (12:30)
[2019-10-18 13:18] LABS: HEMATOCRIT 24.8 % (37.9-51.0); HEMOGLOBIN 8.1 g/dL (13.5-17.0); MEAN CORPUSCULAR HEMOGLOBIN 30.5 pg (27.0-33.4); MEAN CORPUSCULAR HGB CONC 32.6 g/dL (32.0-36.0); MEAN CORPUSCULAR VOLUME 94 fl (80-97); PLATELET COUNT 282 10^3/uL (150-450); RED BLOOD COUNT 2.65 10^6/uL (4.35-5.55); WHITE BLOOD COUNT 7.3 10^3/uL (4.0-10.5)
[2019-10-18 19:28] VITALS: BP 148/80
== END 2019-10-18 23:59 ==
LOC: LAB 11:42 → 3S 12:47 → LAB 12:47
PROVIDERS: ATTEND Internal Medicine
DX: D50.8 Other iron deficiency anemias (principal)
CPT/HCPCS: 86900; 86901; 36430; 86850; 86920; P9016; A9270 ×2; J1940; J7050; J1642

== ENCOUNTER 2019-11-27 14:16 | Emergency (ER) | payer MEDICARE, OTHER ==
--- NOTE | 2019-11-27 15:05 | ER Document Report ---
ED Dizziness/Weakness - General Chief Complaint: General Weakness Stated Complaint: GENERAL WEAKNESS Primary Care Provider: NATTY HERNANDEZ MD [Primary Care Provider] - Follow up as needed Information source: Patient, Emergency Med Personnel TRAVEL OUTSIDE OF THE [place] IN LAST 30 DAYS: No - HPI Patient complains to provider of: Weakness. No: Altered mental status, Dizziness, Near-syncope, Syncope, Vertigo, Other Onset: Just prior to arrival Onset/Duration: Sudden. denies: Gradual, Constant, Intermittent, Persistent, Waxing and waning, Better, Worse, Gone Quality of pain: No pain. denies: Achy, Burning, Cramping, Dull, Fullness, Pressure, Sharp, Stabbing, Throbbing, Other Severity: Mild Pain Level: Denies Context: denies: Chronic dizziness, Trauma, Vertigo, Other Associated symptoms: denies: None, Chest pain, Confused, Diarrhea, Dizzy, Ear pain, Almost fainted, Fainted, Headache, Hearing loss, Less responsive, Lightheaded, Loss of motor function, Loss of strength, Loss of sensation, Nausea, Palpitations, Paralysis, Recent fall, Recent trauma, Ringing/roaring in ear, Short of breath, Sleeping more, Sweating, Vertigo, Vomiting, Weak all over, Other Baseline gait: Uses a cane. denies: Walks w/o assistance, Uses a walker, Walks only w/ assistance, Stands for transfers, Does not stand or walk, Does not sit Notes: She claims this morning he was weak you it was in his cane and fell on his left foot he had just seen wound care center today who has cleaned his left foot lateral ulcer without any signs of infection he also has missing fifth and fourth toe on that side and has difficulty sometimes walking with this and feels that is why he fell and he was weak. He denies any chest pain shortness of breath abdominal pain he does say he has trouble urinating but is on chemotherapy for bladder cancer at this time and had a Almazan catheter that it "fell out and has had difficulty urinating since then. He has frequent falls per EMS. - Related Data Allergies/Adverse Reactions: No Known Allergies Allergy (Verified 08/08/19 10:14) Past Medical History - General Information source: Patient - Social History Smoking Status: Former Smoker Family History: Reviewed & Not Pertinent, Malignancy, Other - Past Medical History Cardiac Medical History: Reports: Hx Hypertension Denies: Hx Coronary Artery Disease, Hx Heart Attack Pulmonary Medical History: Denies: Hx Asthma, Hx Bronchitis, Hx COPD, Hx Pneumonia Neurological Medical History: Denies: Hx Cerebrovascular Accident, Hx Seizures Endocrine Medical History: Reports: Hx Diabetes Mellitus Type 2 Renal/ Medical History: Denies: Hx Peritoneal Dialysis Musculoskeletal Medical History: Denies Hx Arthritis Past Surgical History: Reports: Hx Orthopedic Surgery - right shoulder, L toes removed - Immunizations Hx Diphtheria, Pertussis, Tetanus Vaccination: Yes Review of Systems - Review of Systems Constitutional: denies: No symptoms reported, See HPI, Chills, Diaphoresis, Fever, Malaise, Other, Weight gain, Weight loss, Recent illness EENT: denies: No symptoms reported, See HPI, Eye pain, Eye discharge, Blurred vision, Tearing, Double vision, Ear pain, Ear discharge, Nose pain, Nose congestion, Nose discharge, Sinus pressure, Sinus discharge, Throat pain, Difficulty swallowing, Throat swelling, Mouth pain, Mouth swelling, Dental problem, Vertigo, Other Cardiovascular: denies: No symptoms reported, See HPI, Chest pain, Palpitations, Heart racing, Orthopnea, Dyspnea, Syncope, Dizziness, Lightheaded, Edema, Other, Paroxysmal Nocturnal Dysp Respiratory: denies: No symptoms reported, See HPI, Cough, Hurts to breathe, Hemoptysis, Short of breath, Sputum, Stridor, Wheezing, Other Gastrointestinal: denies: No symptoms reported, See HPI, Abdomen distended, Abdominal pain, Diarrhea, Nausea, Vomiting, Constipation, Blood streaked bowels, Poor appetite, Poor fluid intake, Blood in vomit, Black stools, Rectal bleeding, Last bowel movement, Fecal incontinence, Other Genitourinary: Dysuria. denies: No symptoms reported, See HPI, Burning, Discharge, Frequency, Flank pain, Hematuria, Incontinence, Pain, Urgency, Retention, Other Musculoskeletal: denies: No symptoms reported, See HPI, Back pain, Gout, Joint pain, Joint swelling, Muscle pain, Muscle stiffness, Neck pain, Deformity, Leg swelling, Ankle swelling, Other Neurological/Psychological: denies: No symptoms reported, See HPI, Confusion, Dementia, Depression, Anxiety, Hallucinations, Sensory change, Homicidal ideation, Gait changes, Loss of power, Paralysis, Seizure, Lost consciousness, Headaches, Speech impairment, Numbness, Suicidal ideation, Tingling, Tremor, Other -: Yes All other systems reviewed and negative Physical Exam - Vital signs Vitals: Temp Resp BP Pulse Ox 98.2 F 18 119/89 H 99 11/27/19 17:38 11/27/19 17:38 11/27/19 17:38 11/27/19 17:38 Notes: PHYSICAL EXAMINATION: GENERAL: Well-appearing, well-nourished and in no acute distress. HEAD: Atraumatic, normocephalic. EYES: Pupils equal round and reactive to light, extraocular movements intact, sclera anicteric, conjunctiva are normal. ENT: nares patent, oropharynx clear without exudates. Moist mucous membranes. NECK: Normal range of motion, supple without lymphadenopathy LUNGS: Breath sounds clear to auscultation bilaterally and equal. No wheezes rales or rhonchi. HEART: Regular rate and rhythm without murmurs ABDOMEN: Soft, nontender, normoactive bowel sounds. No guarding, no rebound. No masses appreciated. Back: No pain with patient of the cervical thoracic lumbar sacral or cervical spinous tenderness no CVA tenderness bilaterally EXTREMITIES: Normal range of motion, no pitting or edema. No cyanosis. Left lower leg is in a plaster like dressing which has just been placed by wound care center he has no pain outpatient no warmth or erythema to the area I left this on as he has been cleared by the wound care doctor this morning I feel that this would inhibit healing at this point if there is a high white count or fever we may need to remove this to see if that is a source at this point I feel it is unlikely NEUROLOGICAL: No focal neurological deficits. Moves all extremities spontaneously and on command. PSYCH: Normal mood, normal affect. SKIN: Warm, Dry, normal turgor, no rashes or lesions noted. Course - Vital Signs Vital signs: Temp Pulse Resp BP Pulse Ox 98.2 F 18 119/89 H 99 11/27/19 17:38 11/27/19 17:38 11/27/19 17:38 11/27/19 17:38 - Laboratory Result Diagrams: 11/27/19 15:55 11/27/19 15:55 Laboratory results interpreted by me: 11/27/19 11/27/19 11/27/19 15:55 15:55 17:05 WBC 11.7 H RBC 3.54 L Hgb 10.1 L Hct 32.3 L MCHC 31.2 L RDW 19.0 H BUN 30 H Creatinine 1.81 H Est GFR ( Amer) 45 L Est GFR (MDRD) Non-Af 37 L Glucose 313 H Calcium 11.2 H Creatine Kinase 45 L Albumin 3.1 L Urine Protein 100 H Urine Blood MODERATE H Ur Leukocyte Esterase MODERATE H - EKG Interpretation by Me EKG shows normal: Sinus rhythm Rate: Tachycardia [place]/QRS: LAHB/LAFB When compared to previous EKG there are: No significant change Discharge - Discharge Clinical Impression: Dehydration UTI (urinary tract infection) Qualifiers: Urinary tract infection type: acute pyelonephritis Qualified Code(s): N10 - Acute pyelonephritis Condition: Good Disposition: HOME, SELF-CARE Instructions: Cephalexin ([facility]), Urinary Tract Infection ([facility]), Dehydration ([facility]) Additional Instructions: Increase fluid in your diet. Take antibiotics as directed. Return if fever or 101 you get weak again and pass out chest pain shortness of breath or condition worsens Prescriptions: Cephalexin Monohydrate [Keflex 500 mg Capsule] 500 mg PO Q6H 7 Days #28 capsule Referrals: NATTY HERNANDEZ MD [Primary Care Provider] - Follow up as needed
[2019-11-27 16:18] LABS: ABSOLUTE BASOPHILS # (AUTO) 0.1 10^3/uL (0.0-0.2); ABSOLUTE EOSINOPHILS # (AUTO) 0.2 10^3/uL (0.0-0.6); ABSOLUTE LYMPHOCYTES (AUTO) 2.3 10^3/uL (0.5-4.7); ABSOLUTE NEUT (AUTO) 8.2 10^3/uL (1.7-8.2); BASOPHILS % (AUTO) 0.6 % (0-2); EOSINOPHILS % (AUTO) 1.6 % (0-6); HEMATOCRIT 32.3 % (37.9-51.0); HEMOGLOBIN 10.1 g/dL (13.5-17.0); LYMPHOCYTES % (AUTO) 19.4 % (13-45); MEAN CORPUSCULAR HEMOGLOBIN 28.4 pg (27.0-33.4); MEAN CORPUSCULAR HGB CONC 31.2 g/dL (32.0-36.0); MEAN CORPUSCULAR VOLUME 91 fl (80-97); MONOCYTES % (AUTO) 8.5 % (3-13); PLATELET COUNT 249 10^3/uL (150-450); RED BLOOD COUNT 3.54 10^6/uL (4.35-5.55); SEGMENTED NEUTROPHILS % (AUTO) 69.9 % (42-78); TOTAL CELLS COUNTED % (AUTO) 100 %; WHITE BLOOD COUNT 11.7 10^3/uL (4.0-10.5)
[2019-11-27 16:44] LABS: ALBUMIN 3.1 g/dL (3.5-5.0); ALKALINE PHOSPHATASE 109 U/L (38-126); ANION GAP 9 (5-19); ASPARTATE AMINO TRANSFERASE 18 U/L (17-59); BILIRUBIN,DIRECT 0.3 mg/dL (0.0-0.4); BILIRUBIN,TOTAL 0.4 mg/dL (0.2-1.3); BLOOD UREA NITROGEN 30 mg/dL (7-20); CALCIUM 11.2 mg/dL (8.4-10.2); CARBON DIOXIDE 23 mmol/L (22-30); CHLORIDE 105 mmol/L (98-107); CREATINE KINASE 45 U/L (55-170); GLUCOSE 313 mg/dL (75-110); POTASSIUM 4.6 mmol/L (3.6-5.0); TOTAL PROTEIN 7.2 g/dL (6.3-8.2)
[2019-11-27] MEDS ORDERED: NORMAL SALINE 1000 ML 1,000 ML IV ONE (16:50)
[2019-11-27 16:56] LABS: CREATINE KINASE MB 1.11 ng/mL (<4.55)
[2019-11-27 16:57] LABS: TROPONIN I < 0.012 ng/mL
[2019-11-27] MEDS ORDERED: CEFTRIAXONE 2 GM/D5W RTU 2 GM/50 ML RTUPB IV ONE (17:16)
[2019-11-27 18:21] LABS: APPEARANCE,URINE TURBID; BILIRUBIN,URINE NEGATIVE (NEGATIVE); COLOR,URINE YELLOW; GLUCOSE, URINE NEGATIVE (NEGATIVE); KETONES,URINE NEGATIVE (NEGATIVE); LEUKOCYTE ESTERASE,URINE MODERATE (NEGATIVE); NITRITE,URINE NEGATIVE (NEGATIVE); PROTEIN,URINE 100 mg/dL (NEGATIVE); URINE SPECIFIC GRAVITY 1.021; UROBILINOGEN,URINE NEGATIVE mg/dL (<2.0)
--- NOTE | 2019-11-27 19:10 | EKG REPORT ---
SEVERITY:- ABNORMAL ECG - SINUS TACHYCARDIA RBBB AND LAFB : Confirmed by: Zi Connell MD 27-Nov-2019 19:09:53
[2019-11-27 19:31] VITALS: BP 118/97
== END 2019-11-27 20:21 | disposition home or self-care (01) ==
LOC: ER 14:16
DX: N10 Acute pyelonephritis (principal); E86.0 Dehydration; R53.1 Weakness; W22.8XXA Striking against or struck by other objects, initial encounter; Z87.891 Personal history of nicotine dependence; I10 Essential (primary) hypertension; E11.9 Type 2 diabetes mellitus without complications
CPT/HCPCS: 93005; 99285; 96361; 96365; 36415; 87086; 82553; 82550; 85025; 87088; 80053; 81001; 84484; 87186; 93010; J7030; J0696; J1642

== ENCOUNTER 2019-11-30 17:10 | Inpatient (IN) | payer MEDICARE, OTHER ==
--- NOTE | 2019-11-30 18:24 | PSYCHOLOGICAL NOTE ---
Psych Note - Psych Note Date seen by psych provider: 11/30/19 Time seen by psych provider: 17:30 Psych Note: Patient presents to ED via POV with assistance from [facility]. Patient has a deutsch cath in place by his urologist that is "full of roaches." Patient has diabetes and is unable to cook meals due to hoarding behaviors that has resulted in his home being unlivable (bed bugs and roaches). Patient has frequent falls due to "weakness." Patient is a cancer (bladder or pancreatic) patient who is undergoing chemotherapy. Patient was seen in this ED recently for a UTI. Patient has a history of "extreme paranoia and an angry attitude." Patient is a .
[2019-11-30 23:21] LABS: ABSOLUTE BASOPHILS # (AUTO) 0.1 10^3/uL (0.0-0.2); ABSOLUTE EOSINOPHILS # (AUTO) 0.1 10^3/uL (0.0-0.6); ABSOLUTE LYMPHOCYTES (AUTO) 2.1 10^3/uL (0.5-4.7); ABSOLUTE NEUT (AUTO) 8.4 10^3/uL (1.7-8.2); BASOPHILS % (AUTO) 0.6 % (0-2); EOSINOPHILS % (AUTO) 1.1 % (0-6); HEMATOCRIT 31.5 % (37.9-51.0); HEMOGLOBIN 10.2 g/dL (13.5-17.0); LYMPHOCYTES % (AUTO) 17.7 % (13-45); MEAN CORPUSCULAR HGB CONC 32.2 g/dL (32.0-36.0); MEAN CORPUSCULAR VOLUME 90 fl (80-97); MONOCYTES % (AUTO) 8.3 % (3-13); PLATELET COUNT 245 10^3/uL (150-450); RED BLOOD COUNT 3.51 10^6/uL (4.35-5.55); RED CELL DISTRIBUTION WIDTH 18.7 % (11.5-14.0); SEGMENTED NEUTROPHILS % (AUTO) 72.3 % (42-78); TOTAL CELLS COUNTED % (AUTO) 100 %; WHITE BLOOD COUNT 11.6 10^3/uL (4.0-10.5)
[2019-11-30 23:41] LABS: ALKALINE PHOSPHATASE 120 U/L (38-126); ANION GAP 12 (5-19); ASPARTATE AMINO TRANSFERASE 15 U/L (17-59); BILIRUBIN,DIRECT 0.4 mg/dL (0.0-0.4); BILIRUBIN,TOTAL 0.4 mg/dL (0.2-1.3); BLOOD UREA NITROGEN 26 mg/dL (7-20); CALCIUM 10.5 mg/dL (8.4-10.2); CARBON DIOXIDE 20 mmol/L (22-30); CHLORIDE 105 mmol/L (98-107); CREATINE KINASE 36 U/L (55-170); GLUCOSE 299 mg/dL (75-110); POTASSIUM 4.6 mmol/L (3.6-5.0); TOTAL PROTEIN 7.5 g/dL (6.3-8.2)
--- NOTE | 2019-11-30 23:55 | RADIOLOGY REPORT (SQ) ---
EXAM DESCRIPTION: X-RAY CHEST- One View CLINICAL HISTORY: Status post fall COMPARISON: September 19, 2019 TECHNIQUE: Single view of the chest. FINDINGS: Right chest wall port terminates in the expected location of the superior vena cava. There are no discrete air space infiltrates, pneumothoraces or pleural effusions. The pulmonary vascularity is normal. The cardiomediastinal silhouette is stable in appearance. There are atherosclerotic vascular calcifications. Osseous structures are stable in appearance. IMPRESSION: There are no acute lung parenchymal findings.
[2019-11-30 23:59] LABS: APPEARANCE,URINE TURBID; BILIRUBIN,URINE NEGATIVE (NEGATIVE); COLOR,URINE RED; GLUCOSE, URINE 150 mg/dL (NEGATIVE); KETONES,URINE TRACE mg/dL (NEGATIVE); LEUKOCYTE ESTERASE,URINE SMALL (NEGATIVE); NITRITE,URINE NEGATIVE (NEGATIVE); PROTEIN,URINE >=500 mg/dL (NEGATIVE); URINE SPECIFIC GRAVITY 1.023; UROBILINOGEN,URINE NEGATIVE mg/dL (<2.0)
[2019-12-01] MEDS ORDERED: NORMAL SALINE 1000 ML 1,000 ML IV ONE (00:26)
--- NOTE | 2019-12-01 01:33 | ER Document Report ---
ED General - General Chief Complaint: Fall Stated Complaint: FALL,URINARY PROBLEMS Time Seen by Provider: 11/30/19 20:49 Primary Care Provider: NATTY HERNANDEZ MD [Primary Care Provider] - Follow up as needed Information source: Patient Notes: Patient is a contain Ben 69-year-old male who comes in after being brought in by EMS under the direction of [facility]. Patient apparently has been picked up multiple times off the ground over the last few weeks. Patient states that he falls because he feels weak. Patient was started on chemotherapy for bladder cancer about 3 months ago. He was admitted to the hospital in August of this year and seems to have declined since then. He has an indwelling Almazan catheter and apparently had bedbugs and roaches on him today. Patient denies any pain and states that he is planning on going back to his house. States that he has a friend who helps him. Patient states that he is a walker at home but due to his small house and the amount of things in it, he is unable to use it as there are no clear paths. States that he fell again today and was told that he had to come to the hospital. States that he is hungry and thirsty. There is some blood and cloudy urine in his catheter which she is unable to tell me if it is new or not. He is a very difficult historian. Apparently has a puppy at home which is under the care of his friend at this time. TRAVEL OUTSIDE OF THE [place] IN LAST 30 DAYS: No - HPI Onset: Just prior to arrival Onset/Duration: Gradual Quality of pain: No pain Exacerbated by: Movement Relieved by: Denies - Related Data Allergies/Adverse Reactions: No Known Allergies Allergy (Verified 11/30/19 20:27) Home Medications: prescribed medications, but unable to tell me what they are. States he dosen't take them. Past Medical History - Social History Smoking Status: Former Smoker Chew tobacco use (# tins/day): No Frequency of alcohol use: Rare Drug Abuse: None Family History: Reviewed & Not Pertinent, Malignancy, Other Patient has suicidal ideation: No Patient has homicidal ideation: Yes - Past Medical History Cardiac Medical History: Reports: Hx Hypertension Denies: Hx Coronary Artery Disease, Hx Heart Attack Pulmonary Medical History: Denies: Hx Asthma, Hx Bronchitis, Hx COPD, Hx Pneumonia Neurological Medical History: Denies: Hx Cerebrovascular Accident, Hx Seizures Endocrine Medical History: Reports: Hx Diabetes Mellitus Type 2 Renal/ Medical History: Denies: Hx Peritoneal Dialysis Musculoskeletal Medical History: Denies Hx Arthritis Past Surgical History: Reports: Hx Orthopedic Surgery - right shoulder, L toes removed - Immunizations Hx Diphtheria, Pertussis, Tetanus Vaccination: Yes Review of Systems - Review of Systems -: Yes All other systems reviewed and negative Physical Exam - General General appearance: Alert In distress: None Notes: Chronically ill-appearing - HEENT Head: Normocephalic, Atraumatic Extraocular movements intact: Yes Pupils: PERRL Mucous membranes: Dry - Respiratory Respiratory status: No respiratory distress Breath sounds: Normal - Cardiovascular Rhythm: Regular - Abdominal Inspection: Normal Tenderness: Nontender - Genitourinary Notes: Almazan catheter with cloudy red urine - Back Back: Normal, Nontender - Extremities General upper extremity: Normal inspection, Normal ROM General lower extremity: Other - Left foot wrapped. No foul odor or erythema - Neurological Neuro grossly intact: Yes Orientation: AAOx4 Austin Coma Scale Eye Opening: Spontaneous Austin Coma Scale Verbal: Oriented Armstrong Coma Scale Motor: Obeys Commands Austin Coma Scale Total: 15 - Psychological Associated symptoms: Uncooperative Course - Re-evaluation Re-evalutation: 12/01/19 01:31 Patient is a 69-year-old male who seems to have had a decline over the last few months. He has had multiple falls at home and was referred to the emergency department by [facility]. Unfortunately there is nothing acute on his blood work. Urine likely with chronic pyuria. Urine culture sent. TSH sent. Patient has had multiple falls so CT head abdomen pelvis ordered to evaluate for any internal injury as patient is very uncooperative with exam and history. Care will be transitioned to Dr. Brunner. - Laboratory Result Diagrams: 11/30/19 23:10 11/30/19 23:10 Laboratory results interpreted by me: 11/30/19 11/30/19 11/30/19 22:45 23:10 23:10 WBC 11.6 H RBC 3.51 L Hgb 10.2 L Hct 31.5 L RDW 18.7 H Absolute Neuts (auto) 8.4 H Sodium 136.8 L Carbon Dioxide 20 L BUN 26 H Creatinine 1.46 H Est GFR ( Amer) 58 L Est GFR (MDRD) Non-Af 48 L Glucose 299 H Calcium 10.5 H AST 15 L Creatine Kinase 36 L Albumin 3.0 L Urine Protein >=500 H Urine Glucose (UA) 150 H Urine Ketones TRACE H Urine Blood LARGE H Ur Leukocyte Esterase SMALL H Discharge - Discharge Clinical Impression: Morbid obesity Bladder cancer Qualifiers: Bladder location: unspecified site Qualified Code(s): C67.9 - Malignant neoplasm of bladder, unspecified Fall Qualifiers: Encounter type: initial encounter Qualified Code(s): W19.XXXA - Unspecified fall, initial encounter Condition: Stable Disposition: OTHER Referrals: NATTY HERNANDEZ MD [Primary Care Provider] - Follow up as needed
--- NOTE | 2019-12-01 01:38 | RADIOLOGY REPORT (SQ) ---
EXAM: CT HEAD WITHOUT IV CONTRAST CLINICAL INDICATION: 69-year-old male status post fall with weakness. COMPARISON: None. TECHNIQUE: CT brain without contrast. This exam was performed according to our departmental dose optimization program which includes use of automated exposure control, adjustment of the mA and/or kV according to patient size and/or use of iterative reconstruction technique. FINDINGS: Multifocal regions of patchy hypoattenuation are present in a subcortical and periventricular deep white matter distribution, nonspecific; however, most likely represent small vessel ischemic disease, age indeterminate. The ventricles, and sulci are enlarged, however the ventricles appear to be enlarged disproportionately to the cortical sulci raising the possibility of normal pressure hydrocephalus versus volume loss. The rader-white matter differentiation is preserved. There is no mass effect, midline shift, intra- or extra-axial fluid collection/acute hemorrhage. The osseous structures are unremarkable. The paranasal sinuses and mastoid air cells are clear. IMPRESSION: 1. No acute intracranial abnormalities. Nonspecific white matter change most likely small vessel ischemic disease, age indeterminate. 2. CT is insensitive for early evaluation of acute stroke. If there is clinical concern for acute ischemia, an MRI may be considered. 3. Nonspecific ventriculomegaly raising the possibility of volume loss versus normal pressure hydrocephalus in the correct clinical setting.
--- NOTE | 2019-12-01 01:48 | RADIOLOGY REPORT (SQ) ---
EXAM DESCRIPTION: CT ABDOMEN PELVIS WITHOUT IV CONTRAST COMPLETED DATE/TME: 12/01/2019 00:28 CLINICAL HISTORY: 69 years, Male, fall, weakness COMPARISON: 10/15/2019 TECHNIQUE: Axial CT images of the abdomen and pelvis were obtained without contrast. Sagittal and coronal reformats were performed. DLP 1250 Images stored on PACS. All CT scanners at this facility use dose modulation, iterative reconstruction, and/or weight based dosing when appropriate to reduce radiation dose to as low as reasonably achievable (ALARA). [facility]: Dose Right [facility]: CareDose [facility]: Dose Right [facility]: Teradose 4D [facility]: [employer] LIMITATIONS: None. FINDINGS: The lung bases are clear. The liver, gallbladder, spleen, and adrenal glands are unremarkable. Mild fatty infiltration of the pancreas is noted. Mild right-sided hydronephrosis and hydroureter has developed. Moderate left-sided hydronephrosis and hydroureter is again noted. There is a punctate stone within the distal left ureter. The previously described bladder mass is not well-seen on this exam which obstructs the left UVJ. There is a new 4 mm calcification along the left posterior aspect of the urinary bladder. A Almazan catheter is in place. The previously seen two lymph nodes adjacent to the anterior aspect of the urinary bladder have significantly enlarged with the right now measuring 2.2 cm, previously measuring 7 mm and the left mass measuring 2.8 cm, previously measuring 1.3 cm. The mass is posterior to the urinary bladder measured 2.6 cm on the right and 2.8 cm on the left, previously measuring 1.2 and 1.4 cm, respectively. There are new retroperitoneal lymph nodes which now measures 1.8 cm in size. There are atherosclerotic calcifications of the abdominal aorta. There is no intraperitoneal free air or fluid. The stomach and small bowel are unremarkable. The appendix is normal. The colon appears unremarkable. There are no lytic or blastic bone lesions. IMPRESSION: Progression of metastatic disease with enlarging pelvic and retroperitoneal lymph nodes. Development of mild right-sided hydronephrosis and hydroureter. Grossly stable moderate left-sided hydronephrosis and hydroureter. The margins of the bladder mass are not well seen on this noncontrast exam. New 4 mm calcification along the left posterior aspect of the urinary bladder TECHNICAL DOCUMENTATION: Quality ID # [id number]: Final reports with documentation of one or more dose reduction techniques (e.g., Automated exposure control, adjustment of the mA and/or kV according to patient size, use of iterative reconstruction technique) copyright 2011 [employer]- All Rights Reserved
[2019-12-01 13:03] LABS: ALBUMIN 2.9 g/dL (3.5-5.0); ALKALINE PHOSPHATASE 110 U/L (38-126); ASPARTATE AMINO TRANSFERASE 15 U/L (17-59); BILIRUBIN,DIRECT 0.3 mg/dL (0.0-0.4); BILIRUBIN,TOTAL 0.4 mg/dL (0.2-1.3); TOTAL PROTEIN 7.1 g/dL (6.3-8.2)
[2019-12-01] MEDS ORDERED: ACETAMINOPHEN 325 MG TABLET PO ONE (13:13)
[2019-12-01] MEDS ORDERED: OXYCODONE-ACETAMINOPHEN 5-325 MG TABLET PO ONE (14:33)
[2019-12-01] MEDS ORDERED: ONDANSETRON HCL INJ/PF 4 MG/2 ML SDV IV PRN (14:59)
[2019-12-01] MEDS ORDERED: GLUCAGON,HUMAN RECOMB 1 MG INJ IM PRN (15:25)
[2019-12-01] MEDS ORDERED: DEXTROSE 40% GEL 15 GM TUBE PO PRN ×2 (15:25)
[2019-12-01] MEDS ORDERED: DEXTROSE 50%-WATER 25 GM/50 ML DISP.SYRIN IV PRN ×2 (15:25)
--- NOTE | 2019-12-01 15:25 | PDOC H&P ---
History of Present Illness Admission Date/PCP: NATTY HERNANDEZ MD Patient complains of: Brought to the emergency room yesterday with complaints of multiple falls. History of Present Illness: CHRIS HUNTER is a 69 year old male history of bladder cancer receiving chemoth erapy according to him last dose was 2 weeks ago, diabetes mellitus and he is on Eliquis patient does not know why, chronic pain syndrome came to the emergency room for multiple falls. EMS was called several times to his house for falls. He was found on the ground without any obvious injury several times. And CT abdominal pelvis was done in the ER because patient complained of severe abdominal pains and found to have metastatic enlargement of the pelvic and retroperitoneal lymph nodes, right-sided hydronephrosis with hydroureter, left- sided hydroureter. Bladder mass is also noticed. Medical consult was called after discussion with Dr. Dailey with the possibility of admit the hospital for hospice referal Past Medical History Cardiac Medical History: Reports: Hypertension Denies: Coronary Artery Disease, Myocardial Infarction Pulmonary Medical History: Denies: Asthma, Bronchitis, Chronic Obstructive Pulmonary Disease (COPD), Pneumonia Neurological Medical History: Denies: Seizures Endocrine Medical History: Reports: Diabetes Mellitus Type 2 Malignancy Medical History: Reports: Other - Bladder cancer Musculoskeltal Medical History: Denies: Arthritis Hematology: Reports: Anemia Past Surgical History Past Surgical History: Reports: Orthopedic Surgery - right shoulder, L toes removed Social History Smoking Status: Former Smoker Frequency of Alcohol Use: Occasional Hx Recreational Drug Use: No Drugs: None Hx Prescription Drug Abuse: No - Advance Directive Resuscitation Status: Do Not Intubate Family History Family History: Reviewed & Not Pertinent, Malignancy, Other Parental Family History Reviewed: Yes - Family history of diabetes mellitus Children Family History Reviewed: Yes Sibling(s) Family History Reviewed.: Yes Medication/Allergy Home Medications: Amlodipine Besylate [Norvasc 5 mg Tablet] 5 mg PO DAILY 09/19/19 Folic Acid [Folvite 1 mg Tablet] 1 mg PO DAILY 09/19/19 Insulin Glargine,Hum.rec.anlog [Lantus Insulin 100 Unit/1 ml 10 ml] 100 units SQ QHS 09/19/19 Insulin Lispro [Humalog Insulin (Lispro) 100 unit/mL] 16 units SQ MEALS 09/19/19 Ondansetron HCl [Zofran 8 mg Tablet] 8 mg PO Q8HP PRN 09/19/19 Promethazine HCl [Phenergan 25 mg Tablet] 25 mg PO Q8HP PRN 09/19/19 Tamsulosin HCl [Flomax 0.4 mg Cap.sr] 0.4 mg PO QPM 09/19/19 Trazodone HCl [Desyrel 50 mg Tablet] 100 mg PO HSP PRN 09/19/19 Acetaminophen [Tylenol 325 mg Tablet] 650 mg PO Q4HP PRN tablet 09/23/19 Apixaban [Eliquis 2.5 mg Tablet] 2.5 mg PO Q12 #60 tablet 09/23/19 Ciprofloxacin HCl [Cipro 500 mg Tablet] 500 mg PO BID #14 tablet 09/23/19 Docusate Sodium [Colace 100 mg Capsule] 100 mg PO DAILY capsule 09/23/19 Oxycodone HCl/Acetaminophen [Percocet 5-325 mg Tablet] 1 tab PO Q4HP PRN #12 tablet 09/23/19 Clindamycin HCl 300 mg PO TID #30 capsule 09/25/19 Cephalexin Monohydrate [Keflex 500 mg Capsule] 500 mg PO Q6H 7 Days #28 capsule 11/27/19 Allergies/Adverse Reactions: No Known Allergies Allergy (Verified 11/30/19 20:27) Review of Systems Constitutional: PRESENT: fatigue, weakness. ABSENT: fever(s), headache(s), night sweats Eyes: ABSENT: visual disturbances Ears: ABSENT: hearing changes Nose, Mouth, and Throat: ABSENT: sore throat Cardiovascular: ABSENT: orthropnea, palpitations Respiratory: ABSENT: dyspnea, hemoptysis Gastrointestinal: PRESENT: abdominal pain. ABSENT: dysphagia Genitourinary: ABSENT: dysuria, hematuria Musculoskeletal: PRESENT: muscle weakness Integumentary: ABSENT: rash, wounds Neurological: PRESENT: frequent falls Psychiatric: ABSENT: anxiety, depression, homidical ideation, suicidal ideation Physical Exam Vital Signs: Temp Pulse Resp BP Pulse Ox 97.6 F 89 16 140/92 H 100 12/01/19 08:08 12/01/19 08:08 12/01/19 08:08 12/01/19 08:08 12/01/19 08:08 Intake & Output 11/30/19 12/01/19 12/02/19 06:59 06:59 06:59 Intake Total 1000 Balance 1000 Weight 138.346 kg General appearance: PRESENT: no acute distress, obese Head exam: PRESENT: atraumatic Eye exam: PRESENT: PERRLA Mouth exam: PRESENT: moist, tongue midline Teeth exam: PRESENT: poor dentation Neck exam: ABSENT: carotid bruit, JVD, lymphadenopathy, thyromegaly Respiratory exam: PRESENT: decreased breath sounds Cardiovascular exam: PRESENT: RRR. ABSENT: diastolic murmur, rubs, systolic murmur GI/Abdominal exam: PRESENT: diminished bowel sounds, tenderness Rectal exam: PRESENT: deferred Gentrourinary exam: PRESENT: indwelling catheter Neurological exam: PRESENT: alert, awake, oriented to person, oriented to place, oriented to time, oriented to situation, CN II-XII grossly intact. ABSENT: motor sensory deficit Psychiatric exam: PRESENT: appropriate affect, normal mood. ABSENT: homicidal ideation, suicidal ideation Results Laboratory Results: 11/30/19 23:10 11/30/19 23:10 11/30/19 11/30/19 11/30/19 22:45 23:10 23:10 WBC 11.6 H RBC 3.51 L Hgb 10.2 L Hct 31.5 L MCV 90 MCH 29.0 MCHC 32.2 RDW 18.7 H Plt Count 245 Seg Neutrophils % 72.3 Sodium 136.8 L Potassium 4.6 Chloride 105 Carbon Dioxide 20 L Anion Gap 12 BUN 26 H Creatinine 1.46 H Est GFR ( Amer) 58 L Glucose 299 H Lactic Acid Calcium 10.5 H Total Bilirubin 0.4 AST 15 L Alkaline Phosphatase 120 Total Protein 7.5 Albumin 3.0 L TSH Urine Color RED Urine Appearance TURBID Urine pH 7.0 Ur Specific [place] 1.023 Urine Protein >=500 H Urine Glucose (UA) 150 H Urine Ketones TRACE H Urine Blood LARGE H Urine Nitrite NEGATIVE Ur Leukocyte Esterase SMALL H Urine WBC (Auto) >182 Urine RBC (Auto) >182 11/30/19 11/30/19 12/01/19 23:10 23:10 12:36 WBC RBC Hgb Hct MCV MCH MCHC RDW Plt Count Seg Neutrophils % Sodium Potassium Chloride Carbon Dioxide Anion Gap BUN Creatinine Est GFR ( Amer) Glucose Lactic Acid 1.4 Calcium Total Bilirubin 0.4 AST 15 L Alkaline Phosphatase 110 Total Protein 7.1 Albumin 2.9 L TSH 1.52 Urine Color Urine Appearance Urine pH Ur Specific [place] Urine Protein Urine Glucose (UA) Urine Ketones Urine Blood Urine Nitrite Ur Leukocyte Esterase Urine WBC (Auto) Urine RBC (Auto) 11/30/19 23:10 Creatine Kinase 36 L Impressions: Chest X-Ray 11/30/19 00:00 IMPRESSION: There are no acute lung parenchymal findings. Abdomen/Pelvis CT 12/01/19 00:28 IMPRESSION: Progression of metastatic disease with enlarging pelvic and retroperitoneal lymph nodes. Development of mild right-sided hydronephrosis and hydroureter. Grossly stable moderate left-sided hydronephrosis and hydroureter. The margins of the bladder mass are not well seen on this noncontrast exam. New 4 mm calcification along the left posterior aspect of the urinary bladder TECHNICAL DOCUMENTATION: Quality ID # [id number]: Final reports with documentation of one or more dose reduction techniques (e.g., Automated exposure control, adjustment of the mA and/or kV according to patient size, use of iterative reconstruction technique) copyright 2011 [employer]- All Rights Reserved Head CT 12/01/19 00:28 IMPRESSION: 1. No acute intracranial abnormalities. Nonspecific white matter change most likely small vessel ischemic disease, age indeterminate. 2. CT is insensitive for early evaluation of acute stroke. If there is clinical concern for acute ischemia, an MRI may be considered. 3. Nonspecific ventriculomegaly raising the possibility of volume loss versus normal pressure hydrocephalus in the correct clinical setting. Assessment and Plan - Diagnosis (1) Bladder cancer Qualifiers: Bladder location: unspecified site Qualified Code(s): C67.9 - Malignant neoplasm of bladder, unspecified Is this a current diagnosis for this admission?: Yes Plan: 12/01/2019-patient has history of bladder cancer and doing chemotherapy as per the patient chemotherapy was given 2 weeks ago came in with severe abdominal pains found to have metastatic lesions with enlarging pelvic and retroperitoneal lymph nodes bilateral hydronephrosis hydroureter with the presence of bladder mass. He has indwelling Almazan's catheter. I discussed the case with Dr. Dailey he thinks patient needed hospice care need to be DNR/DNI. Patient agreed only for a DNI status. He wants chest compressions and shocks if needed. Dr. Dailey overall prognosis poor condition is critical. Basically is going to be admitted for pain management and hospice referral. (2) Fall Qualifiers: Encounter type: initial encounter Qualified Code(s): W19.XXXA - Unspecified fall, initial encounter Is this a current diagnosis for this admission?: Yes Plan: 12/01/2019 patient came in with complaints of multiple falls no obvious injuries are noticed. Physical therapy consult was requested aspiration fall seizure precautions are requested. (3) Abdominal pain Qualifiers: Abdominal location: lower abdomen, unspecified Qualified Code(s): R10.30 - Lower abdominal pain, unspecified Is this a current diagnosis for this admission?: Yes Plan: 12/01/2019-patient came in with severe abdominal pain CT abdomen pelvis was done found to have a bladder cancer with bilateral hydroureters and a metastatic lesions with the lymph node enlargements in the pelvic area and retroperitoneal lymph node enlargement. As per Dr. Dailey overall prognosis poor condition is critical. Patient need to be referred to hospice. (4) Diabetes mellitus Qualifiers: Diabetes mellitus type: type 2 Diabetes mellitus complication status: with hyperglycemia Is this a current diagnosis for this admission?: No Plan: 12/01/2019-patient has history of type 2 diabetes mellitus plan is to place him on insulin sliding scale before meals and at bedtime. And also plan is to resume his home medications. (5) DNI (do not intubate) Is this a current diagnosis for this admission?: Yes Plan: 12/01/2019-patient is requesting for chest compressions and shocks if needed but does not want to be connected to the machine for breathing. he is going to be DNI.
[2019-12-01] MEDS ORDERED: HEPARIN SOD (PORCINE) 5,000 UNIT/ML 1 ML VIAL SUBCUT ONE (16:00)
[2019-12-01] MEDS: NORMAL SALINE 1000 ML 1,000 ML IV PRN (16:09)
[2019-12-01] MEDS: INSULIN REG, HUMAN 100 UNIT/ML 3 ML VIAL (PYX) SUBCUT SCH ×2 (16:09→22:45)
--- NOTE | 2019-12-01 17:25 | PSYCHOLOGICAL NOTE ---
Psych Note - Psych Note Date seen by psych provider: 12/01/19 Time seen by psych provider: 08:50 Psych Note: Reason for consult: Social Patient is a 69 year old male who presents to the ED assisted by community paramedics. Patient experiences obsessive compulsive tendencies that have resulted in creating a hazardous home environment. Patient has hoarding tendencies. Patient experiences "weakness" that results in falls. Patient is receiving chemotherapy for bladder cancer. Per [place] with community paramedics, patient is generally reluctant to assistance. Patient was resting when clinician entered the room. Patient reported significant pain "in the gut." Patient disclosed he undergoes chemotherapy for bladder cancer. To build rapport, clinician inquired about patient's history. Patient states he served in the [employer] 24 years and only got out "because my body started giving out." Patient was receptive to conversation with clinician. Clinician will "check in" later and discuss future options for care and encourage patient to allow community services to assist. Patient is alert and oriented to person, place, time and circumstance. Mood is normal with congruent affect. Patient was observed to be in pain. Patient denies suicidal and homicidal ideations. Delusions are absent and behavior is congruent with an intact reality based presentation (i.e.: organized and linear through processes). There is no observed behavior that suggests patient is responding to internal stimuli. Patient denies current auditory and visual hallucinations. Eye contact is good. Conversational speech is within normal rate, tone, and prosody. Intellectual ability appears to be within average range. Attention and concentration are good. Insight, judgment and impulse control are currently poor. Medication recommendations per [facility] contracted psychiatrist Dr. Roopa DAVIS is as follows: Pending Impression/Plan: Patient is recommended for social hold for coordination of care efforts are sought in the community. Patient denies suicidal and homicidal ideations. There is no observed behavior that suggests patient is responding to internal stimuli. Patient denies current auditory and visual hallucinations. There is no observed behaviors that suggest patient is a danger to herself or others. Patient was kept overnight for stabilization of hygiene (bed bugs and roaches in patient's deutsch bag). There were concerns by community paramedics of a recent fall. Plan is to continue to coordinate efforts with community paramedics, APS, and discharge planning on Tuesday. Behavioral health is transferring off this case and transferring to touring production manager's caseload. Dr. Mancini was consulted on the care and management of this patient.
[2019-12-01] MEDS ORDERED: HEPARIN SOD (PORCINE) 5,000 UNIT/ML 1 ML VIAL SUBCUT SCH (22:00)
[2019-12-01] MEDS: TEMAZEPAM 7.5 MG CAPSULE PO SCH (22:45)
[2019-12-01] MEDS ORDERED: OXYCODONE-ACETAMINOPHEN 5-325 MG TABLET PO PRN (23:38)
[2019-12-02 06:43] LABS: HEMATOCRIT 31.1 % (37.9-51.0); HEMOGLOBIN 9.9 g/dL (13.5-17.0); MEAN CORPUSCULAR HEMOGLOBIN 28.9 pg (27.0-33.4); MEAN CORPUSCULAR HGB CONC 31.9 g/dL (32.0-36.0); MEAN CORPUSCULAR VOLUME 91 fl (80-97); PLATELET COUNT 236 10^3/uL (150-450); RED BLOOD COUNT 3.43 10^6/uL (4.35-5.55); RED CELL DISTRIBUTION WIDTH 18.8 % (11.5-14.0); WHITE BLOOD COUNT 10.4 10^3/uL (4.0-10.5)
[2019-12-02 07:06] LABS: ALBUMIN 2.8 g/dL (3.5-5.0); ALKALINE PHOSPHATASE 106 U/L (38-126); ANION GAP 8 (5-19); ASPARTATE AMINO TRANSFERASE 16 U/L (17-59); BILIRUBIN,DIRECT 0.3 mg/dL (0.0-0.4); BILIRUBIN,TOTAL 0.4 mg/dL (0.2-1.3); BLOOD UREA NITROGEN 22 mg/dL (7-20); CALCIUM 10.1 mg/dL (8.4-10.2); CARBON DIOXIDE 22 mmol/L (22-30); CHLORIDE 107 mmol/L (98-107); GLUCOSE 216 mg/dL (75-110); POTASSIUM 4.8 mmol/L (3.6-5.0); TOTAL PROTEIN 6.9 g/dL (6.3-8.2)
[2019-12-02] MEDS: INSULIN REG, HUMAN 100 UNIT/ML 3 ML VIAL (PYX) SUBCUT SCH ×4 (08:21→21:42)
--- NOTE | 2019-12-02 09:40 | PDOC PROGRESS REPORT ---
Subjective Progress Note for:: 12/02/19 Subjective:: 69 year old male history of bladder cancer receiving chemotherapy according to him last dose was 2 weeks ago, diabetes mellitus and he is on Eliquis patient does not know why, chronic pain syndrome came to the emergency room for multiple falls. EMS was called several times to his house for falls. He was found on the ground without any obvious injury several times. And CT abdominal pelvis was done in the ER because patient complained of severe abdominal pains and found to have metastatic enlargement of the pelvic and retroperitoneal lymph nodes, right-sided hydronephrosis with hydroureter, left-sided hydroureter. Bladder mass is also noticed. Medical consult was called after discussion with Dr. Dailey with the possibility of admit the hospital for hospice referal [id number]-old male with history of bladder cancer with metastatic lesions admitted for severe abdominal pain and he has a Almazan's catheter CT scan shows bilateral hydronephrosis he has a chronic leg wound as per the patient it was there for the last 2 and a few years he is going to the wound care center on regular basis. No signs of infection seen on the wound. Wound care consult will be requested. Patient is complaining of excruciating pain requesting for more pain medications. Consultation with Dr. Dailey was requested. Patient CODE STATUS is DNI. Reason For Visit: FALLS Physical Exam Vital Signs: Temp Pulse Resp BP Pulse Ox 97.7 F 95 17 120/68 98 12/02/19 07:47 12/02/19 07:47 12/02/19 07:47 12/02/19 07:47 12/02/19 07:47 Intake & Output 12/01/19 12/02/19 12/03/19 06:59 06:59 06:59 Intake Total 1000 222 Output Total 225 Balance 1000 -3 Weight 138.346 kg General appearance: PRESENT: no acute distress, obese Head exam: PRESENT: atraumatic Eye exam: PRESENT: PERRLA Mouth exam: PRESENT: moist, tongue midline Teeth exam: PRESENT: poor dentation Neck exam: ABSENT: carotid bruit, JVD, lymphadenopathy, thyromegaly Respiratory exam: PRESENT: clear to auscultation benny. ABSENT: rales, rhonchi, wheezes Cardiovascular exam: PRESENT: RRR. ABSENT: diastolic murmur, rubs, systolic murmur GI/Abdominal exam: PRESENT: normal bowel sounds, soft. ABSENT: distended, guarding, mass, organolmegaly, rebound, tenderness Rectal exam: PRESENT: deferred Gentrourinary exam: PRESENT: indwelling catheter Extremities exam: PRESENT: other - Left lower leg wound present. Neurological exam: PRESENT: alert, awake, oriented to person, oriented to place, oriented to time, oriented to situation, CN II-XII grossly intact. ABSENT: motor sensory deficit Results Laboratory Results: 12/02/19 05:00 12/02/19 05:00 12/01/19 12/02/19 12/02/19 12:36 05:00 05:00 WBC 10.4 RBC 3.43 L Hgb 9.9 L Hct 31.1 L MCV 91 MCH 28.9 MCHC 31.9 L RDW 18.8 H Plt Count 236 Sodium 136.8 L Potassium 4.8 Chloride 107 Carbon Dioxide 22 Anion Gap 8 BUN 22 H Creatinine 1.15 Est GFR ( Amer) > 60 Glucose 216 H Calcium 10.1 Magnesium 1.6 Total Bilirubin 0.4 0.4 AST 15 L 16 L Alkaline Phosphatase 110 106 Total Protein 7.1 6.9 Albumin 2.9 L 2.8 L TSH 12/02/19 05:00 WBC RBC Hgb Hct MCV MCH MCHC RDW Plt Count Sodium Potassium Chloride Carbon Dioxide Anion Gap BUN Creatinine Est GFR ( Amer) Glucose Calcium Magnesium Total Bilirubin AST Alkaline Phosphatase Total Protein Albumin TSH 1.06 11/30/19 12/02/19 23:10 05:00 Creatine Kinase 36 L NT-Pro-B Natriuret Pep 1520 H Impressions: Chest X-Ray 11/30/19 00:00 IMPRESSION: There are no acute lung parenchymal findings. Abdomen/Pelvis CT 12/01/19 00:28 IMPRESSION: Progression of metastatic disease with enlarging pelvic and retroperitoneal lymph nodes. Development of mild right-sided hydronephrosis and hydroureter. Grossly stable moderate left-sided hydronephrosis and hydroureter. The margins of the bladder mass are not well seen on this noncontrast exam. New 4 mm calcification along the left posterior aspect of the urinary bladder TECHNICAL DOCUMENTATION: Quality ID # [id number]: Final reports with documentation of one or more dose reduction techniques (e.g., Automated exposure control, adjustment of the mA and/or kV according to patient size, use of iterative reconstruction technique) copyright 2011 [employer]- All Rights Reserved Head CT 12/01/19 00:28 IMPRESSION: 1. No acute intracranial abnormalities. Nonspecific white matter change most likely small vessel ischemic disease, age indeterminate. 2. CT is insensitive for early evaluation of acute stroke. If there is clinical concern for acute ischemia, an MRI may be considered. 3. Nonspecific ventriculomegaly raising the possibility of volume loss versus normal pressure hydrocephalus in the correct clinical setting. Assessment and Plan - Diagnosis (1) Bladder cancer Qualifiers: Bladder location: unspecified site Qualified Code(s): C67.9 - Malignant neoplasm of bladder, unspecified Is this a current diagnosis for this admission?: Yes Plan: 12/01/2019-patient has history of bladder cancer and doing chemotherapy as per the patient chemotherapy was given 2 weeks ago came in with severe abdominal pains found to have metastatic lesions with enlarging pelvic and retroperitoneal lymph nodes bilateral hydronephrosis hydroureter with the presence of bladder mass. He has indwelling Almazan's catheter. I discussed the case with Dr. Dailey he thinks patient needed hospice care need to be DNR/DNI. Patient agreed only for a DNI status. He wants chest compressions and shocks if needed. Dr. Dailey overall prognosis poor condition is critical. Basically is going to be admitted for pain management and hospice referral. 12/02/2019-patient has history of bladder cancer following with Dr. Dailey. CT scan done last night indicating enlarged retroperitoneal lymph nodes and pelvic lymph nodes indicating metastatic lesions. Hospice consult was requested. Patient CODE STATUS is DNI. plan is to continue to provide supportive measures including pain management. (2) Fall Qualifiers: Encounter type: initial encounter Qualified Code(s): W19.XXXA - Unspecified fall, initial encounter Is this a current diagnosis for this admission?: Yes Plan: 12/01/2019 patient came in with complaints of multiple falls no obvious injuries are noticed. Physical therapy consult was requested aspiration fall seizure precautions are requested. 12/02/2019-patient came in with complaints of multiple falls at home. EMS was called to his house several times. No obvious injuries seen on examination. Physical therapy consult requested. Aspiration fall seizure precautions are requested. (3) Abdominal pain Qualifiers: Abdominal location: lower abdomen, unspecified Qualified Code(s): R10.30 - Lower abdominal pain, unspecified Is this a current diagnosis for this admission?: Yes Plan: 12/01/2019-patient came in with severe abdominal pain CT abdomen pelvis was done found to have a bladder cancer with bilateral hydroureters and a metastatic lesions with the lymph node enlargements in the pelvic area and retroperitoneal lymph node enlargement. As per Dr. Dailey overall prognosis poor condition is critical. Patient need to be referred to hospice. 12/02/2019-patient admitted with severe abdominal pain CT scan was abnormal with a bladder mass on the possible metastatic lesions. 10 oxycodone 1 tablet every 8 hours as needed for pain. To add IV morphine to the present medication as a as needed med. (4) Diabetes mellitus Qualifiers: Diabetes mellitus type: type 2 Diabetes mellitus complication status: with hyperglycemia Is this a current diagnosis for this admission?: No Plan: 12/01/2019-patient has history of type 2 diabetes mellitus plan is to place him on insulin sliding scale before meals and at bedtime. And also plan is to resume his home medications. 12/02/2019-patient has history of type 2 diabetes mellitus latest blood sugar is 216. Plan is to continue insulin sliding scale before meals and at bedtime and continue his home medications. (5) DNI (do not intubate) Is this a current diagnosis for this admission?: Yes
[2019-12-02] MEDS: NORMAL SALINE 1000 ML 1,000 ML IV PRN (10:19)
[2019-12-02] MEDS ORDERED: PIPERACILLIN/TAZOBACTAM 3.375 GM VIAL IV SCH (11:15)
--- NOTE | 2019-12-02 11:24 | PDOC CONSULTATION ---
Consultation Consult Date: 12/02/19 Attending physician:: CARA ELLIS Provider Consulted: CHRISTINA MERCHANT Consult reason:: Stage IV bladder cancer, with progression, here with weakness and falls and UTI History of Present Illness Admission Date/PCP: 12/01/19 15:34 NATTY HERNANDEZ MD Patient complains of: Weakness, falls, decline in functional status History of Present Illness: CHRIS HUNTER is a 69 year old male with known history of stage IV bladder cancer, recently on second line therapy after progression with first-line therapy. Just started on second line therapy. Unfortunately has had several weeks where he is continually fell, and called EMS to just get him up, ultimately Adult Protective Services were called on him and they went out and saw that he was living in deplorable status, unfit for existence, and brought him into the ER. Here he was found to be very weak, UA was dirty, urine culture shows gram-negative rods. He looks weak, had been taking poor p.o. for the last few days prior to admission does appear dehydrated. Of note CT imaging was done and unfortunately he has progressive disease with new retroperitoneal adenopathy and increase in size and burden of cancer in the abdomen. Past Medical History Cardiac Medical History: Reports: Hypertension Denies: Coronary Artery Disease, Myocardial Infarction Pulmonary Medical History: Denies: Asthma, Bronchitis, Chronic Obstructive Pulmonary Disease (COPD), Pneumonia Neurological Medical History: Denies: Seizures Endocrine Medical History: Reports: Diabetes Mellitus Type 2 Malignancy Medical History: Reports: Other - Bladder cancer Musculoskeltal Medical History: Denies: Arthritis Hematology: Reports: Anemia Past Surgical History Past Surgical History: Reports: Orthopedic Surgery - right shoulder, L toes removed Social History Information Source: Patient Smoking Status: Former Smoker Electronic Cigarette use?: No Last Time Smoked: 19 years ago Frequency of Alcohol Use: Rare Hx Recreational Drug Use: No Drugs: None Hx Prescription Drug Abuse: No - Advance Directive Resuscitation Status: Do Not Intubate Family History Family History: Reviewed & Not Pertinent, Malignancy, Other Parental Family History Reviewed: Yes Children Family History Reviewed: Yes Sibling(s) Family History Reviewed.: Yes Medication/Allergy Allergies/Adverse Reactions: No Known Allergies Allergy (Verified 11/30/19 20:27) Review of Systems Constitutional: ABSENT: chills, fever(s), headache(s), weight gain, weight loss Eyes: ABSENT: visual disturbances Ears: ABSENT: hearing changes Cardiovascular: ABSENT: chest pain, dyspnea on exertion, edema, orthropnea, palpitations Respiratory: ABSENT: cough, hemoptysis Gastrointestinal: ABSENT: abdominal pain, constipation, diarrhea, hematemesis, hematochezia, nausea, vomiting Genitourinary: ABSENT: dysuria, hematuria Musculoskeletal: ABSENT: joint swelling Integumentary: ABSENT: rash, wounds Neurological: ABSENT: abnormal gait, abnormal speech, confusion, dizziness, focal weakness, syncope Psychiatric: ABSENT: anxiety, depression, homidical ideation, suicidal ideation Endocrine: ABSENT: cold intolerance, heat intolerance, polydipsia, polyuria Hematologic/Lymphatic: ABSENT: easy bleeding, easy bruising Physical Exam Vital Signs: Temp Pulse Resp BP Pulse Ox 97.7 F 95 17 120/68 98 12/02/19 07:47 12/02/19 07:47 12/02/19 07:47 12/02/19 07:47 12/02/19 07:47 Intake & Output 12/01/19 12/02/19 12/03/19 06:59 06:59 06:59 Intake Total 1000 1222 Output Total 225 Balance 1000 997 Weight 138.346 kg General appearance: PRESENT: no acute distress, well-developed, well-nourished Head exam: PRESENT: atraumatic, normocephalic Eye exam: PRESENT: conjunctiva pink, EOMI, PERRLA. ABSENT: scleral icterus Ear exam: PRESENT: normal external ear exam Mouth exam: PRESENT: moist, tongue midline Neck exam: ABSENT: carotid bruit, JVD, lymphadenopathy, thyromegaly Respiratory exam: PRESENT: clear to auscultation benny. ABSENT: rales, rhonchi, wheezes Cardiovascular exam: PRESENT: RRR. ABSENT: diastolic murmur, rubs, systolic murmur Pulses: PRESENT: normal dorsalis pedis pul Vascular exam: PRESENT: normal capillary refill GI/Abdominal exam: PRESENT: normal bowel sounds, soft. ABSENT: distended, guarding, mass, organolmegaly, rebound, tenderness Rectal exam: PRESENT: deferred Extremities exam: PRESENT: full ROM. ABSENT: calf tenderness, clubbing, pedal edema Neurological exam: PRESENT: alert, awake, oriented to person, oriented to place, oriented to time, oriented to situation, CN II-XII grossly intact. ABSENT: motor sensory deficit Psychiatric exam: PRESENT: appropriate affect, normal mood. ABSENT: homicidal ideation, suicidal ideation Skin exam: PRESENT: dry, intact, warm. ABSENT: cyanosis, rash Results Laboratory Results: 12/02/19 05:00 12/02/19 05:00 12/01/19 12/02/19 12/02/19 12:36 05:00 05:00 WBC 10.4 RBC 3.43 L Hgb 9.9 L Hct 31.1 L MCV 91 MCH 28.9 MCHC 31.9 L RDW 18.8 H Plt Count 236 Sodium 136.8 L Potassium 4.8 Chloride 107 Carbon Dioxide 22 Anion Gap 8 BUN 22 H Creatinine 1.15 Est GFR ( Amer) > 60 Glucose 216 H Calcium 10.1 Magnesium 1.6 Total Bilirubin 0.4 0.4 AST 15 L 16 L Alkaline Phosphatase 110 106 Total Protein 7.1 6.9 Albumin 2.9 L 2.8 L TSH 12/02/19 05:00 WBC RBC Hgb Hct MCV MCH MCHC RDW Plt Count Sodium Potassium Chloride Carbon Dioxide Anion Gap BUN Creatinine Est GFR ( Amer) Glucose Calcium Magnesium Total Bilirubin AST Alkaline Phosphatase Total Protein Albumin TSH 1.06 11/30/19 12/02/19 23:10 05:00 Creatine Kinase 36 L NT-Pro-B Natriuret Pep 1520 H Impressions: Chest X-Ray 11/30/19 00:00 IMPRESSION: There are no acute lung parenchymal findings. Abdomen/Pelvis CT 12/01/19 00:28 IMPRESSION: Progression of metastatic disease with enlarging pelvic and retroperitoneal lymph nodes. Development of mild right-sided hydronephrosis and hydroureter. Grossly stable moderate left-sided hydronephrosis and hydroureter. The margins of the bladder mass are not well seen on this noncontrast exam. New 4 mm calcification along the left posterior aspect of the urinary bladder TECHNICAL DOCUMENTATION: Quality ID # [id number]: Final reports with documentation of one or more dose reduction techniques (e.g., Automated exposure control, adjustment of the mA and/or kV according to patient size, use of iterative reconstruction technique) copyright 2011 [email or web address]- All Rights Reserved Head CT 12/01/19 00:28 IMPRESSION: 1. No acute intracranial abnormalities. Nonspecific white matter change most likely small vessel ischemic disease, age indeterminate. 2. CT is insensitive for early evaluation of acute stroke. If there is clinical concern for acute ischemia, an MRI may be considered. 3. Nonspecific ventriculomegaly raising the possibility of volume loss versus normal pressure hydrocephalus in the correct clinical setting. Status: Image reviewed by me Assessment & Plan - Diagnosis (1) Bladder cancer Qualifiers: Bladder location: overlapping sites Qualified Code(s): C67.8 - Malignant neoplasm of overlapping sites of bladder Is this a current diagnosis for this admission?: Yes Plan: Stage IV bladder cancer with primarily abdominal and retroperitoneal adenopathy metastasis, progressive disease on second line therapy. With multiple falls and weakness and general deconditioning I do not believe he is a candidate for further therapy. We had a long discussion about this. Patient understands. (2) Cancer related pain Is this a current diagnosis for this admission?: Yes Plan: I will increase his oxycodone to 10 mg p.o. every 4 hours as needed. (3) UTI (urinary tract infection) Qualifiers: Urinary tract infection type: acute pyelonephritis Qualified Code(s): N10 - Acute pyelonephritis Is this a current diagnosis for this admission?: Yes Plan: Plan for initiation of IV antibiotic, discussed with hospitalist team today (4) Physical deconditioning Is this a current diagnosis for this admission?: Yes Plan: Related both to the cancer as well as treatment, also has other generalized medical conditions, he is no longer a candidate for chemotherapy but would like to get stronger to be able to get back to his house. And be able to live independently ultimately. To that extent I think rehab placement for deconditioning would be useful. Previously was in [facility] and he does not want to go back there so hopefully discharge planning can work on getting him to [facility], ultimately when he is physically and medically ready. - Time Time Spent: Greater than 70 Minutes - Inpatient Certification Based on my medical assessment, after consideration of the patient's comorbidities, presenting symptoms, or acuity I expect that the services needed warrant INPATIENT care.: Yes I certify that my determination is in accordance with my understanding of Medicare's requirements for reasonable and necessary INPATIENT services [42 CFR 412.3e].: Yes Medical Necessity: Need for IV Antibiotics, Risk of Complication if Not Cared For in Hospital
[2019-12-02] MEDS: OXYCODONE HCL IR 5 MG TABLET PO PRN ×2 (12:18→16:50)
[2019-12-02] MEDS: MORPHINE SULFATE 10 MG/ML INJ IV PRN ×2 (13:15→19:45)
[2019-12-02] MEDS: PIPERACILLIN SODIUM/TAZOBACTAM 3.375 GM in NORMAL SALINE 100 ML IV SCH ×2 (15:00→21:42)
[2019-12-02] MEDS: TEMAZEPAM 7.5 MG CAPSULE PO SCH (21:42)
[2019-12-03 04:31] LABS: ABSOLUTE BASOPHILS # (AUTO) 0.1 10^3/uL (0.0-0.2); ABSOLUTE EOSINOPHILS # (AUTO) 0.3 10^3/uL (0.0-0.6); ABSOLUTE LYMPHOCYTES (AUTO) 2.2 10^3/uL (0.5-4.7); ABSOLUTE NEUT (AUTO) 6.3 10^3/uL (1.7-8.2); BASOPHILS % (AUTO) 0.7 % (0-2); EOSINOPHILS % (AUTO) 2.9 % (0-6); HEMATOCRIT 30.6 % (37.9-51.0); LYMPHOCYTES % (AUTO) 22.4 % (13-45); MEAN CORPUSCULAR HEMOGLOBIN 29.3 pg (27.0-33.4); MEAN CORPUSCULAR HGB CONC 32.5 g/dL (32.0-36.0); MEAN CORPUSCULAR VOLUME 90 fl (80-97); MONOCYTES % (AUTO) 9.7 % (3-13); PLATELET COUNT 212 10^3/uL (150-450); RED CELL DISTRIBUTION WIDTH 18.9 % (11.5-14.0); SEGMENTED NEUTROPHILS % (AUTO) 64.3 % (42-78); TOTAL CELLS COUNTED % (AUTO) 100 %; WHITE BLOOD COUNT 9.8 10^3/uL (4.0-10.5)
[2019-12-03 04:47] LABS: ALBUMIN 2.7 g/dL (3.5-5.0); ALKALINE PHOSPHATASE 97 U/L (38-126); ANION GAP 8 (5-19); ASPARTATE AMINO TRANSFERASE 13 U/L (17-59); BILIRUBIN,DIRECT 0.3 mg/dL (0.0-0.4); BILIRUBIN,TOTAL 0.4 mg/dL (0.2-1.3); BLOOD UREA NITROGEN 21 mg/dL (7-20); CALCIUM 10.3 mg/dL (8.4-10.2); CARBON DIOXIDE 22 mmol/L (22-30); CHLORIDE 107 mmol/L (98-107); GLUCOSE 186 mg/dL (75-110); POTASSIUM 4.9 mmol/L (3.6-5.0); TOTAL PROTEIN 6.7 g/dL (6.3-8.2)
[2019-12-03] MEDS: NORMAL SALINE 1000 ML 1,000 ML IV PRN ×2 (05:31→18:08)
[2019-12-03] MEDS: OXYCODONE HCL IR 5 MG TABLET PO PRN ×4 (05:34→22:09)
[2019-12-03] MEDS: PIPERACILLIN SODIUM/TAZOBACTAM 3.375 GM in NORMAL SALINE 100 ML IV SCH (05:36)
[2019-12-03] MEDS ORDERED: TRAZODONE HCL 50 MG TABLET PO PRN (07:46)
[2019-12-03] MEDS ORDERED: PROMETHAZINE HCL 25 MG TABLET PO PRN (07:46)
[2019-12-03] MEDS ORDERED: SODIUM CHLORIDE NASAL SPRAY 44 ML NASL PRN (07:46)
[2019-12-03] MEDS: INSULIN REG, HUMAN 100 UNIT/ML 3 ML VIAL (PYX) SUBCUT SCH ×4 (08:37→21:59)
--- NOTE | 2019-12-03 08:41 | PDOC PROGRESS REPORT ---
Subjective Progress Note for:: 12/03/19 Subjective:: Patient seems a little bit better today, his family friends are at bedside today. I had a long discussion with them about his current status of disease and next steps of care, spent about 45 minutes in discussion this morning. Recommended hospice care, but they would like to take him home and so he can have home hospice care, he will have caregivers available. Reason For Visit: FALLS Physical Exam Vital Signs: Temp Pulse Resp BP Pulse Ox 98.3 F 81 18 137/78 H 99 12/03/19 07:54 12/03/19 07:54 12/03/19 07:54 12/03/19 07:54 12/03/19 07:54 Intake & Output 12/02/19 12/03/19 12/04/19 06:59 06:59 06:59 Intake Total 1222 2140 Output Total 225 950 Balance 997 1190 Weight 130.6 kg General appearance: PRESENT: no acute distress, well-developed, well-nourished Head exam: PRESENT: atraumatic, normocephalic Eye exam: PRESENT: conjunctiva pink, EOMI, PERRLA. ABSENT: scleral icterus Ear exam: PRESENT: normal external ear exam Mouth exam: PRESENT: moist, tongue midline Neck exam: ABSENT: carotid bruit, JVD, lymphadenopathy, thyromegaly Respiratory exam: PRESENT: clear to auscultation benny. ABSENT: rales, rhonchi, wheezes Cardiovascular exam: PRESENT: RRR. ABSENT: diastolic murmur, rubs, systolic murmur Pulses: PRESENT: normal dorsalis pedis pul Vascular exam: PRESENT: normal capillary refill GI/Abdominal exam: PRESENT: normal bowel sounds, soft. ABSENT: distended, guarding, mass, organolmegaly, rebound, tenderness Rectal exam: PRESENT: deferred Extremities exam: PRESENT: full ROM. ABSENT: calf tenderness, clubbing, pedal edema Neurological exam: PRESENT: alert, awake, oriented to person, oriented to place, oriented to time, oriented to situation, CN II-XII grossly intact. ABSENT: motor sensory deficit Psychiatric exam: PRESENT: appropriate affect, normal mood. ABSENT: homicidal ideation, suicidal ideation Skin exam: PRESENT: dry, intact, warm. ABSENT: cyanosis, rash Results Laboratory Results: 12/03/19 04:00 12/03/19 04:00 12/03/19 12/03/19 04:00 04:00 WBC 9.8 RBC 3.40 L Hgb 10.0 L Hct 30.6 L MCV 90 MCH 29.3 MCHC 32.5 RDW 18.9 H Plt Count 212 Seg Neutrophils % 64.3 Sodium 137.0 Potassium 4.9 Chloride 107 Carbon Dioxide 22 Anion Gap 8 BUN 21 H Creatinine 1.37 H Est GFR ( Amer) > 60 Glucose 186 H Calcium 10.3 H Magnesium 1.6 Total Bilirubin 0.4 AST 13 L Alkaline Phosphatase 97 Total Protein 6.7 Albumin 2.7 L 11/30/19 12/02/19 23:10 05:00 Creatine Kinase 36 L NT-Pro-B Natriuret Pep 1520 H Impressions: Chest X-Ray 11/30/19 00:00 IMPRESSION: There are no acute lung parenchymal findings. Abdomen/Pelvis CT 12/01/19 00:28 IMPRESSION: Progression of metastatic disease with enlarging pelvic and retroperitoneal lymph nodes. Development of mild right-sided hydronephrosis and hydroureter. Grossly stable moderate left-sided hydronephrosis and hydroureter. The margins of the bladder mass are not well seen on this noncontrast exam. New 4 mm calcification along the left posterior aspect of the urinary bladder TECHNICAL DOCUMENTATION: Quality ID # 436: Final reports with documentation of one or more dose reduction techniques (e.g., Automated exposure control, adjustment of the mA and/or kV according to patient size, use of iterative reconstruction technique) copyright 2011 [employer]- All Rights Reserved Head CT 12/01/19 00:28 IMPRESSION: 1. No acute intracranial abnormalities. Nonspecific white matter change most likely small vessel ischemic disease, age indeterminate. 2. CT is insensitive for early evaluation of acute stroke. If there is clinical concern for acute ischemia, an MRI may be considered. 3. Nonspecific ventriculomegaly raising the possibility of volume loss versus normal pressure hydrocephalus in the correct clinical setting. Assessment & Plan - Diagnosis (1) Bladder cancer Qualifiers: Bladder location: overlapping sites Qualified Code(s): C67.8 - Malignant neoplasm of overlapping sites of bladder Is this a current diagnosis for this admission?: Yes Plan: No further rx planned, pt is hospice appropriate, life expectancy <6 m. D/w pt and family friends. (2) Cancer related pain Is this a current diagnosis for this admission?: Yes Plan: Cont oxycodone IR (3) UTI (urinary tract infection) Qualifiers: Urinary tract infection type: acute pyelonephritis Qualified Code(s): N10 - Acute pyelonephritis Is this a current diagnosis for this admission?: Yes Plan: Continue antibiotic (4) Physical deconditioning Is this a current diagnosis for this admission?: Yes Plan: Continue PT - Time Time Spent with patient: 35 or more minutes
--- NOTE | 2019-12-03 09:58 | PDOC PROGRESS REPORT ---
Subjective Progress Note for:: 12/03/19 Subjective:: 69 year old male history of bladder cancer receiving chemotherapy according to him last dose was 2 weeks ago, diabetes mellitus and he is on Eliquis patient does not know why, chronic pain syndrome came to the emergency room for multiple falls. EMS was called several times to his house for falls. He was found on the ground without any obvious injury several times. And CT abdominal pelvis was done in the ER because patient complained of severe abdominal pains and found to have metastatic enlargement of the pelvic and retroperitoneal lymph nodes, right-sided hydronephrosis with hydroureter, left-sided hydroureter. Bladder mass is also noticed. Medical consult was called after discussion with Dr. Dailey with the possibility of admit the hospital for hospice referal [id number]-fouj-old male with history of bladder cancer with metastatic lesions admitted for severe abdominal pain and he has a Almazan's catheter CT scan shows bilateral hydronephrosis he has a chronic leg wound as per the patient it was there for the last 2 and a few years he is going to the wound care center on regular basis. No signs of infection seen on the wound. Wound care consult will be requested. Patient is complaining of excruciating pain requesting for more pain medications. Consultation with Dr. Dailey was requested. Patient CODE STATUS is DNI. 12/03/19 no acute events in the last 24 hours. Patient is afebrile. Dr. Young spoke to me and said patient agreed for hospice. CODE STATUS is DNI at this time. Reason For Visit: FALLS Physical Exam Vital Signs: Temp Pulse Resp BP Pulse Ox 98.3 F 81 18 137/78 H 99 12/03/19 07:54 12/03/19 07:54 12/03/19 07:54 12/03/19 07:54 12/03/19 07:54 Intake & Output 12/02/19 12/03/19 12/04/19 06:59 06:59 06:59 Intake Total 1222 2140 Output Total 225 950 Balance 997 1190 Weight 130.6 kg General appearance: PRESENT: no acute distress, obese Head exam: PRESENT: atraumatic Eye exam: PRESENT: PERRLA Mouth exam: PRESENT: moist, tongue midline Teeth exam: PRESENT: poor dentation Neck exam: ABSENT: carotid bruit, JVD, lymphadenopathy, thyromegaly Respiratory exam: PRESENT: decreased breath sounds Cardiovascular exam: PRESENT: RRR. ABSENT: diastolic murmur, rubs, systolic murmur GI/Abdominal exam: PRESENT: normal bowel sounds, soft. ABSENT: distended, gu arding, mass, organolmegaly, rebound, tenderness Rectal exam: PRESENT: deferred Gentrourinary exam: PRESENT: indwelling catheter Extremities exam: PRESENT: full ROM. ABSENT: calf tenderness, clubbing, pedal edema Neurological exam: PRESENT: alert, awake, oriented to person, oriented to place, oriented to time, oriented to situation, CN II-XII grossly intact. ABSENT: motor sensory deficit Psychiatric exam: PRESENT: appropriate affect, normal mood. ABSENT: homicidal ideation, suicidal ideation Results Laboratory Results: 12/03/19 04:00 12/03/19 04:00 12/03/19 12/03/19 04:00 04:00 WBC 9.8 RBC 3.40 L Hgb 10.0 L Hct 30.6 L MCV 90 MCH 29.3 MCHC 32.5 RDW 18.9 H Plt Count 212 Seg Neutrophils % 64.3 Sodium 137.0 Potassium 4.9 Chloride 107 Carbon Dioxide 22 Anion Gap 8 BUN 21 H Creatinine 1.37 H Est GFR ( Amer) > 60 Glucose 186 H Calcium 10.3 H Magnesium 1.6 Total Bilirubin 0.4 AST 13 L Alkaline Phosphatase 97 Total Protein 6.7 Albumin 2.7 L 11/30/19 12/02/19 23:10 05:00 Creatine Kinase 36 L NT-Pro-B Natriuret Pep 1520 H Impressions: Chest X-Ray 11/30/19 00:00 IMPRESSION: There are no acute lung parenchymal findings. Abdomen/Pelvis CT 12/01/19 00:28 IMPRESSION: Progression of metastatic disease with enlarging pelvic and retroperitoneal lymph nodes. Development of mild right-sided hydronephrosis and hydroureter. Grossly stable moderate left-sided hydronephrosis and hydroureter. The margins of the bladder mass are not well seen on this noncontrast exam. New 4 mm calcification along the left posterior aspect of the urinary bladder TECHNICAL DOCUMENTATION: Quality ID # 436: Final reports with documentation of one or more dose reduction techniques (e.g., Automated exposure control, adjustment of the mA and/or kV according to patient size, use of iterative reconstruction technique) copyright 2011 [employer]- All Rights Reserved Head CT 12/01/19 00:28 IMPRESSION: 1. No acute intracranial abnormalities. Nonspecific white matter change most likely small vessel ischemic disease, age indeterminate. 2. CT is insensitive for early evaluation of acute stroke. If there is clinical concern for acute ischemia, an MRI may be considered. 3. Nonspecific ventriculomegaly raising the possibility of volume loss versus normal pressure hydrocephalus in the correct clinical setting. Assessment and Plan - Diagnosis (1) Bladder cancer Qualifiers: Bladder location: overlapping sites Qualified Code(s): C67.8 - Malignant neoplasm of overlapping sites of bladder Is this a current diagnosis for this admission?: Yes Plan: 12/01/2019-patient has history of bladder cancer and doing chemotherapy as per the patient chemotherapy was given 2 weeks ago came in with severe abdominal pains found to have metastatic lesions with enlarging pelvic and retroperitoneal lymph nodes bilateral hydronephrosis hydroureter with the presence of bladder mass. He has indwelling Almazan's catheter. I discussed the case with Dr. Dailey he thinks patient needed hospice care need to be DNR/DNI. Patient agreed only for a DNI status. He wants chest compressions and shocks if needed. Dr. Dailey overall prognosis poor condition is critical. Basically is going to be admitted for pain management and hospice referral. 12/02/2019-patient has history of bladder cancer following with Dr. Dailey. CT scan done last night indicating enlarged retroperitoneal lymph nodes and pelvic lymph nodes indicating metastatic lesions. Hospice consult was requested. Patient CODE STATUS is DNI. plan is to continue to provide supportive measures including pain management. 12/03/[id number]-rwol-old male with history of bladder cancer following with Dr. Monsalve on the [facility] for chemotherapy admitted for increasing abdominal pains. CT abdomen pelvis indicating bladder mass with metastatic disease. Overall prognosis poor as per the oncology team. Patient agreed for hospice care. Day he is expressing desire to go home and that his friends is going to help him with his daily activities at home. He is also requesting for hospice referral and home health services. (2) Fall Qualifiers: Encounter type: initial encounter Qualified Code(s): W19.XXXA - Unspecified fall, initial encounter Is this a current diagnosis for this admission?: Yes Plan: 12/01/2019 patient came in with complaints of multiple falls no obvious injuries are noticed. Physical therapy consult was requested aspiration fall seizure precautions are requested. 12/02/2019-patient came in with complaints of multiple falls at home. EMS was called to his house several times. No obvious injuries seen on examination. Physical therapy consult requested. Aspiration fall seizure precautions are requested. (3) Abdominal pain Qualifiers: Abdominal location: lower abdomen, unspecified Qualified Code(s): R10.30 - Lower abdominal pain, unspecified Is this a current diagnosis for this admission?: Yes Plan: 12/01/2019-patient came in with severe abdominal pain CT abdomen pelvis was done found to have a bladder cancer with bilateral hydroureters and a metastatic lesions with the lymph node enlargements in the pelvic area and retroperitoneal lymph node enlargement. As per Dr. Dailey overall prognosis poor condition is critical. Patient need to be referred to hospice. 12/02/2019-patient admitted with severe abdominal pain CT scan was abnormal with a bladder mass on the possible metastatic lesions. 10 oxycodone 1 tablet every 8 hours as needed for pain. To add IV morphine to the present medication as a as needed med. 12/03/19 patient denies any abdominal pain this morning. Is receiving oxycodone and also IV morphine on as-needed basis. (4) Diabetes mellitus Qualifiers: Diabetes mellitus type: type 2 Diabetes mellitus complication status: with hyperglycemia Is this a current diagnosis for this admission?: No Plan: 12/01/2019-patient has history of type 2 diabetes mellitus plan is to place him on insulin sliding scale before meals and at bedtime. And also plan is to resume his home medications. 12/02/2019-patient has history of type 2 diabetes mellitus latest blood sugar is 216. Plan is to continue insulin sliding scale before meals and at bedtime and continue his home medications. 12/03/2019-patient has history of type 2 diabetes mellitus latest blood sugar is 186. Hemoglobin A1c is pending. (5) DNI (do not intubate) Is this a current diagnosis for this admission?: Yes
[2019-12-03] MEDS ORDERED: (PENDING PHARMACY ID) (Bupropion Hcl [Wellbutrin Xl 150 Mg 24hr Tablet] 150 MG) PO SCH (10:00)
[2019-12-03] MEDS: LEVOFLOXACIN 500 MG/D5W RTU 500 MG/100 ML RTUPB IV SCH (10:42)
[2019-12-03] MEDS: METOPROLOL SUCCINATE 25 MG TAB.SR.24H PO SCH (10:43)
[2019-12-03] MEDS: POLYETHYLENE GLYCOL 3350 POWDER 17 GM/1 PACKET PO SCH (10:43)
[2019-12-03] MEDS: TAMSULOSIN HCL 0.4 MG CAP.SR.24H PO SCH (10:43)
[2019-12-03] MEDS: APIXABAN 2.5 MG TABLET PO SCH ×2 (10:43→21:59)
[2019-12-03] MEDS: FOLIC ACID 1 MG TABLET PO SCH (10:43)
[2019-12-03] MEDS: MAGNESIUM OXIDE 400 MG TABLET PO SCH ×2 (10:44→18:08)
[2019-12-03] MEDS: AMLODIPINE BESYLATE 5 MG TABLET PO SCH (10:44)
[2019-12-03] MEDS: LOSARTAN POTASSIUM 50 MG TABLET PO SCH ×2 (10:44→18:20)
[2019-12-03] MEDS ORDERED: ONDANSETRON HCL INJ/PF 4 MG/2 ML SDV IV PRN (11:00)
[2019-12-03] MEDS: FLUTICASONE NASAL SPRAY 50 MCG/SPRY 120 SPRAY/16 GM NASL SCH ×2 (11:35→22:00)
[2019-12-03] MEDS: BUPROPION HCL 75 MG TABLET PO SCH ×2 (11:36→21:59)
[2019-12-03] MEDS ORDERED: CETIRIZINE 10 MG TABLET PO SCH (18:00)
[2019-12-03] MEDS ORDERED: (PENDING PHARMACY ID) (Eszopiclone [Lunesta] 1 MG) PO SCH (22:00)
[2019-12-03] MEDS ORDERED: ZOLPIDEM TARTRATE 5 MG TABLET PO SCH (22:00)
[2019-12-03] MEDS ORDERED: INSULIN GLARGINE,HUM.REC.ANLOG 1,000 UNIT/10 ML VIAL SUBCUT SCH (22:00)
[2019-12-03] MEDS ORDERED: ATORVASTATIN CALCIUM 10 MG TABLET PO SCH (22:00)
[2019-12-04 06:20] LABS: ABSOLUTE EOSINOPHILS # (AUTO) 0.3 10^3/uL (0.0-0.6); ABSOLUTE LYMPHOCYTES (AUTO) 2.4 10^3/uL (0.5-4.7); ABSOLUTE MONOCYTES (AUTO) 1.1 10^3/uL (0.1-1.4); ABSOLUTE NEUT (AUTO) 5.9 10^3/uL (1.7-8.2); BASOPHILS % (AUTO) 0.4 % (0-2); EOSINOPHILS % (AUTO) 3.1 % (0-6); HEMATOCRIT 29.3 % (37.9-51.0); HEMOGLOBIN 9.4 g/dL (13.5-17.0); MEAN CORPUSCULAR HEMOGLOBIN 28.8 pg (27.0-33.4); MEAN CORPUSCULAR VOLUME 90 fl (80-97); MONOCYTES % (AUTO) 10.8 % (3-13); PLATELET COUNT 213 10^3/uL (150-450); RED BLOOD COUNT 3.26 10^6/uL (4.35-5.55); RED CELL DISTRIBUTION WIDTH 18.8 % (11.5-14.0); SEGMENTED NEUTROPHILS % (AUTO) 60.7 % (42-78); TOTAL CELLS COUNTED % (AUTO) 100 %; WHITE BLOOD COUNT 9.8 10^3/uL (4.0-10.5)
[2019-12-04 06:40] LABS: ALBUMIN 2.6 g/dL (3.5-5.0); ALKALINE PHOSPHATASE 101 U/L (38-126); ANION GAP 6 (5-19); ASPARTATE AMINO TRANSFERASE 13 U/L (17-59); BILIRUBIN,DIRECT 0.2 mg/dL (0.0-0.4); BILIRUBIN,TOTAL 0.2 mg/dL (0.2-1.3); BLOOD UREA NITROGEN 19 mg/dL (7-20); CALCIUM 10.1 mg/dL (8.4-10.2); CARBON DIOXIDE 25 mmol/L (22-30); CHLORIDE 107 mmol/L (98-107); GLUCOSE 140 mg/dL (75-110); POTASSIUM 5.3 mmol/L (3.6-5.0); TOTAL PROTEIN 6.5 g/dL (6.3-8.2)
[2019-12-04] MEDS: TAMSULOSIN HCL 0.4 MG CAP.SR.24H PO SCH (09:52)
[2019-12-04] MEDS: INSULIN REG, HUMAN 100 UNIT/ML 3 ML VIAL (PYX) SUBCUT SCH ×2 (09:52→11:57)
[2019-12-04] MEDS: FLUTICASONE NASAL SPRAY 50 MCG/SPRY 120 SPRAY/16 GM NASL SCH (09:52)
[2019-12-04] MEDS: APIXABAN 2.5 MG TABLET PO SCH (09:52)
[2019-12-04] MEDS: LOSARTAN POTASSIUM 50 MG TABLET PO SCH (09:52)
[2019-12-04] MEDS: METOPROLOL SUCCINATE 25 MG TAB.SR.24H PO SCH (09:53)
[2019-12-04] MEDS: AMLODIPINE BESYLATE 5 MG TABLET PO SCH (09:53)
[2019-12-04] MEDS: MAGNESIUM OXIDE 400 MG TABLET PO SCH (09:53)
[2019-12-04] MEDS: LEVOFLOXACIN 500 MG/D5W RTU 500 MG/100 ML RTUPB IV SCH (09:53)
[2019-12-04] MEDS: BUPROPION HCL 75 MG TABLET PO SCH (09:53)
[2019-12-04] MEDS: POLYETHYLENE GLYCOL 3350 POWDER 17 GM/1 PACKET PO SCH (09:53)
[2019-12-04] MEDS: FOLIC ACID 1 MG TABLET PO SCH (09:53)
[2019-12-04] MEDS ORDERED: OXYCODONE HCL SR 10 MG TABLET PO ONE (10:15)
--- NOTE | 2019-12-04 13:06 | PDOC PROGRESS REPORT ---
Subjective Progress Note for:: 12/04/19 Subjective:: Patient found sitting on floor next to his bed. He is confused and cannot tell me exactly what happened, but states that he is not hurting anywhere and did not fall, but is unable to get up. Reason For Visit: FALLS Physical Exam Vital Signs: Temp Pulse Resp BP Pulse Ox 98.0 F 94 18 112/67 100 12/04/19 10:43 12/04/19 10:43 12/04/19 10:43 12/04/19 10:43 12/04/19 10:43 Intake & Output 12/03/19 12/04/19 12/05/19 06:59 06:59 06:59 Intake Total 2140 2462 607 Output Total 950 1700 400 Balance 1190 762 207 Weight 130.6 kg 134.3 kg General appearance: PRESENT: no acute distress, obese Head exam: PRESENT: normocephalic Respiratory exam: PRESENT: unlabored Neurological exam: PRESENT: altered Psychiatric exam: PRESENT: appropriate affect Skin exam: PRESENT: normal color Results Laboratory Results: 12/04/19 05:48 12/04/19 05:48 12/04/19 12/04/19 05:48 05:48 WBC 9.8 RBC 3.26 L Hgb 9.4 L Hct 29.3 L MCV 90 MCH 28.8 MCHC 32.0 RDW 18.8 H Plt Count 213 Seg Neutrophils % 60.7 Sodium 138.2 Potassium 5.3 H Chloride 107 Carbon Dioxide 25 Anion Gap 6 BUN 19 Creatinine 1.51 H Est GFR ( Amer) 56 L Glucose 140 H Calcium 10.1 Magnesium 1.7 Total Bilirubin 0.2 AST 13 L Alkaline Phosphatase 101 Total Protein 6.5 Albumin 2.6 L 12/01/19 18:05 Foot - Left Gram Stain - Final 11/30/19 22:45 Catheterized Urine Urine Culture - Final Morganella Morganii Enterococcus Faecalis(Group D) 11/30/19 12/02/19 23:10 05:00 Creatine Kinase 36 L NT-Pro-B Natriuret Pep 1520 H Impressions: Chest X-Ray 11/30/19 00:00 IMPRESSION: There are no acute lung parenchymal findings. Abdomen/Pelvis CT 12/01/19 00:28 IMPRESSION: Progression of metastatic disease with enlarging pelvic and retroperitoneal lymph nodes. Development of mild right-sided hydronephrosis and hydroureter. Grossly stable moderate left-sided hydronephrosis and hydroureter. The margins of the bladder mass are not well seen on this noncontrast exam. New 4 mm calcification along the left posterior aspect of the urinary bladder TECHNICAL DOCUMENTATION: Quality ID # [id number]: Final reports with documentation of one or more dose reduction techniques (e.g., Automated exposure control, adjustment of the mA and/or kV according to patient size, use of iterative reconstruction technique) copyright 2011 [employer]- All Rights Reserved Head CT 12/01/19 00:28 IMPRESSION: 1. No acute intracranial abnormalities. Nonspecific white matter change most likely small vessel ischemic disease, age indeterminate. 2. CT is insensitive for early evaluation of acute stroke. If there is clinical concern for acute ischemia, an MRI may be considered. 3. Nonspecific ventriculomegaly raising the possibility of volume loss versus normal pressure hydrocephalus in the correct clinical setting. Assessment & Plan - Diagnosis (1) Bladder cancer Qualifiers: Bladder location: overlapping sites Qualified Code(s): C67.8 - Malignant neoplasm of overlapping sites of bladder Is this a current diagnosis for this admission?: Yes Plan: Hospice has been consulted. Family is agreeable to home with Hospice services. This has been arranged. (2) Fall Qualifiers: Encounter type: initial encounter Qualified Code(s): W19.XXXA - Unspecified fall, initial encounter Is this a current diagnosis for this admission?: Yes Plan: No acute injury today, but patient continues to be a fall risk. I discussed safety concerns with staff, after patient was helped back into bed. I strongly recommend bed alarm at home. Hospice should be able to arrange this. - Time Time Spent with patient: 15-24 minutes
--- NOTE | 2019-12-04 14:19 | PDOC DISCHARGE SUMMARY ---
Impression - Admit/DC Date/PCP Admission Date/Primary Care Provider: 12/01/19 15:34 NATTY HERNANDEZ MD Discharge Date: 12/04/19 - Assessment Summary: Patient was evaluated for multiple falls in the ER. He had also complained of a bdominal pain. CT scan of his abdomen was performed which showed persistence of bladder cancer with bilateral hydroureteronephrosis as well as hydronephrosis and lymph node enlargements in the pelvic area and retroperitoneal. Patient had Almazan placed. Patient was evaluated by the oncologists who deemed the patient was overall very poor prognosis and recommended hospice. This was discussed with patient by oncology and patient decided on being discharged home with hospice care. Patient's wishes have been upheld and patient is being discharged home on hospice which has been set up by our traffic and transport planner. - Additional Information Resuscitation Status: Do Not Intubate Discharge Diet: As Tolerated Discharge Activity: Activity As Tolerated Referrals: NATTY HERNANDEZ MD [Primary Care Provider] - Follow up as needed Prescriptions: Lorazepam [Ativan] 1 mg PO Q3HP PRN #20 tablet PRN Reason: RX: Trazodone HCl [Desyrel 50 mg Tablet] 50 mg PO HSP PRN #10 tab PRN Reason: FOR SLEEP Sennosides/Docusate Sodium [Docusate Sodium-Senna Tablet] 1 each PO BID #60 tablet RX: Polyethylene Glycol 3350 [Miralax Powder 17 gm/Packet] 1 packet PO DAILY 30 Days Morphine Sulfate [Morphine Ir 15 Mg Tablet] 15 mg PO Q4HP PRN #20 tablet PRN Reason: RX: Promethazine HCl [Phenergan 25 mg Tablet] 25 mg PO Q6HP PRN #20 tab PRN Reason: NAUSEA RX: Ondansetron HCl [Zofran 8 mg Tablet] 8 mg PO Q8HP PRN #10 tab PRN Reason: NAUSEA Home Medications: RX: Amlodipine Besylate [Norvasc 5 mg Tablet] 5 mg PO DAILY 12/02/19 RX: Bupropion HCl [Wellbutrin Xl 150 mg 24hr Tablet] 150 mg PO DAILY 12/02/19 RX: Cetirizine HCl [Zyrtec 10 mg Tablet] 10 mg PO QPM 12/02/19 RX: Eszopiclone [Lunesta] 1 mg PO QHS 12/02/19 RX: Exenatide Microspheres [Bydureon Pen] 2 mg SQ HERNÁNDEZ@1000 12/02/19 RX: Fluticasone Propionate [Flonase Nasal Spivey 50 Mcg/Spivey 16 gm] 1 spray NASL Q12 12/02/19 RX: Insulin Aspart [Novolog Flexpen] 16 unit SQ Q8 12/02/19 RX: Insulin Glargine,Hum.rec.anlog [Lantus Insulin 100 Unit/1 ml 10 ml] 100 unit SUBCUT QHS 12/02/19 RX: Losartan Potassium [Cozaar 100 mg Tablet] 100 mg PO DAILY 12/02/19 RX: Metoprolol Succinate [Toprol Xl 25 mg Tab.sr] 25 mg PO DAILY 12/02/19 RX: Sildenafil Citrate [Viagra] 100 mg PO ASDIR PRN 12/02/19 RX: Sodium Chloride [[place] Nasal Spivey 44 ml Bottle] 2 spray NASL BIDP PRN 12/02/19 RX: Tamsulosin HCl [Flomax 0.4 mg Cap.sr] 0.4 mg PO DAILY 12/02/19 Lorazepam [Ativan] 1 mg PO Q3HP PRN #20 tablet 12/04/19 Morphine Sulfate [Morphine Ir 15 Mg Tablet] 15 mg PO Q4HP PRN #20 tablet 12/04/19 RX: Ondansetron HCl [Zofran 8 mg Tablet] 8 mg PO Q8HP PRN #10 tab 12/04/19 RX: Polyethylene Glycol 3350 [Miralax Powder 17 gm/Packet] 1 packet PO DAILY 30 Days 12/04/19 RX: Promethazine HCl [Phenergan 25 mg Tablet] 25 mg PO Q6HP PRN #20 tab 12/04/19 RX: Trazodone HCl [Desyrel 50 mg Tablet] 50 mg PO HSP PRN #10 tab 12/04/19 Sennosides/Docusate Sodium [Docusate Sodium-Senna Tablet] 1 each PO BID #60 tablet 12/04/19 History of Present Illiness History of Present Illness: CHRIS HUNTER is a 69 year old male history of bladder cancer receiving chemotherapy according to him last dose was 2 weeks ago, diabetes mellitus and he is on Eliquis patient does not know why, chronic pain syndrome came to the emergency room for multiple falls. EMS was called several times to his house for falls. He was found on the ground without any obvious injury several times. And CT abdominal pelvis was done in the ER because patient complained of severe abdominal pains and found to have metastatic enlargement of the pelvic and retroperitoneal lymph nodes, right-sided hydronephrosis with hydroureter, left- sided hydroureter. Bladder mass is also noticed. Medical consult was called after discussion with Dr. Dailey with the possibility of admit the hospital for hospice referal Physical Exam Vital Signs: Temp Pulse Resp BP Pulse Ox 98.0 F 94 18 112/67 100 12/04/19 10:43 12/04/19 10:43 12/04/19 10:43 12/04/19 10:43 12/04/19 10:43 Intake & Output 12/03/19 12/04/19 12/05/19 06:59 06:59 06:59 Intake Total 2140 2462 607 Output Total 950 1700 400 Balance 1190 762 207 Weight 130.6 kg 134.3 kg General appearance: PRESENT: no acute distress, cooperative Neurological exam: PRESENT: alert, awake, oriented to person, oriented to place, oriented to time Psychiatric exam: PRESENT: agitated Results Laboratory Results: WBC 9.8 10^3/uL (4.0-10.5) 12/04/19 05:48 RBC 3.26 10^6/uL (4.35-5.55) L 12/04/19 05:48 Hgb 9.4 g/dL (13.5-17.0) L 12/04/19 05:48 Hct 29.3 % (37.9-51.0) L 12/04/19 05:48 MCV 90 fl (80-97) 12/04/19 05:48 MCH 28.8 pg (27.0-33.4) 12/04/19 05:48 MCHC 32.0 g/dL (32.0-36.0) 12/04/19 05:48 RDW 18.8 % (11.5-14.0) H 12/04/19 05:48 Plt Count 213 10^3/uL (150-450) 12/04/19 05:48 Lymph % (Auto) 25.0 % (13-45) 12/04/19 05:48 [place] % (Auto) 10.8 % (3-13) 12/04/19 05:48 Eos % (Auto) 3.1 % (0-6) 12/04/19 05:48 Baso % (Auto) 0.4 % (0-2) 12/04/19 05:48 Absolute Neuts (auto) 5.9 10^3/uL (1.7-8.2) 12/04/19 05:48 Absolute Lymphs (auto) 2.4 10^3/uL (0.5-4.7) 12/04/19 05:48 Absolute Monos (auto) 1.1 10^3/uL (0.1-1.4) 12/04/19 05:48 Absolute Eos (auto) 0.3 10^3/uL (0.0-0.6) 12/04/19 05:48 Absolute Basos (auto) 0.0 10^3/uL (0.0-0.2) 12/04/19 05:48 Seg Neutrophils % 60.7 % (42-78) 12/04/19 05:48 Sodium 138.2 mmol/L (137-145) 12/04/19 05:48 Potassium 5.3 mmol/L (3.6-5.0) H 12/04/19 05:48 Chloride 107 mmol/L (98-107) 12/04/19 05:48 Carbon Dioxide 25 mmol/L (22-30) 12/04/19 05:48 Anion Gap 6 (5-19) 12/04/19 05:48 BUN 19 mg/dL (7-20) 12/04/19 05:48 Creatinine 1.51 mg/dL (0.52-1.25) H 12/04/19 05:48 Est GFR ( Amer) 56 (>60) L 12/04/19 05:48 Est GFR (MDRD) Non-Af 46 (>60) L 12/04/19 05:48 Glucose 140 mg/dL (75-110) H 12/04/19 05:48 POC Glucose 220 mg/dL (70-110) H 12/04/19 10:42 Lactic Acid 1.4 mmol/L (0.7-2.1) 11/30/19 23:10 Calcium 10.1 mg/dL (8.4-10.2) 12/04/19 05:48 Magnesium 1.7 mg/dL (1.6-2.3) 12/04/19 05:48 Total Bilirubin 0.2 mg/dL (0.2-1.3) 12/04/19 05:48 Direct Bilirubin 0.2 mg/dL (0.0-0.4) 12/04/19 05:48 Neonat Total Bilirubin Not Reportable 12/04/19 05:48 Neonat Direct Bilirubin Not Reportable 12/04/19 05:48 Neonat Indirect Bili Not Reportable 12/04/19 05:48 AST 13 U/L (17-59) L 12/04/19 05:48 ALT 7 U/L (<50) 12/04/19 05:48 Alkaline Phosphatase 101 U/L (38-126) 12/04/19 05:48 Creatine Kinase 36 U/L (55-170) L 11/30/19 23:10 NT-Pro-B Natriuret Pep 1520 pg/mL (<125) H 12/02/19 05:00 Total Protein 6.5 g/dL (6.3-8.2) 12/04/19 05:48 Albumin 2.6 g/dL (3.5-5.0) L 12/04/19 05:48 TSH 1.06 uIU/mL (0.47-4.68) 12/02/19 05:00 Urine Color RED 11/30/19 22:45 Urine Appearance TURBID 11/30/19 22:45 Urine pH 7.0 (5.0-9.0) 11/30/19 22:45 Ur Specific [place] 1.023 11/30/19 22:45 Urine Protein >=500 mg/dL (NEGATIVE) H 11/30/19 22:45 Urine Glucose (UA) 150 mg/dL (NEGATIVE) H 11/30/19 22:45 Urine Ketones TRACE mg/dL (NEGATIVE) H 11/30/19 22:45 Urine Blood LARGE (NEGATIVE) H 11/30/19 22:45 Urine Nitrite NEGATIVE (NEGATIVE) 11/30/19 22:45 Urine Bilirubin NEGATIVE (NEGATIVE) 11/30/19 22:45 Urine Urobilinogen NEGATIVE mg/dL (<2.0) 11/30/19 22:45 Ur Leukocyte Esterase SMALL (NEGATIVE) H 11/30/19 22:45 Urine WBC (Auto) >182 /HPF 11/30/19 22:45 Urine RBC (Auto) >182 /HPF 11/30/19 22:45 Urine Bacteria (Auto) 2+ /HPF 11/30/19 22:45 Urine WBC Clumps MANY /HPF 11/30/19 22:45 Squamous Epi Cells Auto 6 /HPF 11/30/19 22:45 Urine Mucus (Auto) OCC /LPF 11/30/19 22:45 Urine Ascorbic Acid NEGATIVE (NEGATIVE) 11/30/19 22:45 12/02/19 05:00 NT-Pro-B Natriuret Pep 1520 H Impressions: Chest X-Ray 11/30/19 00:00 IMPRESSION: There are no acute lung parenchymal findings. Abdomen/Pelvis CT 12/01/19 00:28 IMPRESSION: Progression of metastatic disease with enlarging pelvic and retroperitoneal lymph nodes. Development of mild right-sided hydronephrosis and hydroureter. Grossly stable moderate left-sided hydronephrosis and hydroureter. The margins of the bladder mass are not well seen on this noncontrast exam. New 4 mm calcification along the left posterior aspect of the urinary bladder TECHNICAL DOCUMENTATION: Quality ID # [id number]: Final reports with documentation of one or more dose reduction techniques (e.g., Automated exposure control, adjustment of the mA and/or kV according to patient size, use of iterative reconstruction technique) copyright 2011 [employer]- All Rights Reserved Head CT 12/01/19 00:28 IMPRESSION: 1. No acute intracranial abnormalities. Nonspecific white matter change most likely small vessel ischemic disease, age indeterminate. 2. CT is insensitive for early evaluation of acute stroke. If there is clinical concern for acute ischemia, an MRI may be considered. 3. Nonspecific ventriculomegaly raising the possibility of volume loss versus normal pressure hydrocephalus in the correct clinical setting. Plan Time Spent: Less than 30 Minutes Stroke Is this a Stroke Patient?: No Acute Heart Failure - Is this a Heart Failure Patient?: No
[2019-12-04 16:03] VITALS: BP 140/92
[2019-12-09] MEDS ORDERED: (PENDING PHARMACY ID) (Exenatide Microspheres [Bydureon Pen] 2 MG) SUBCUT SCH (10:00)
== END 2019-12-04 17:15 | disposition hospice, home (50) | DRG 948 ==
LOC: ER 17:10 → EH 12-01 15:34 → 3W 12-01 19:34
PROVIDERS: ADMIT Internal Medicine; ATTEND Internal Medicine
DX: G89.3 Neoplasm related pain (acute) (chronic) (principal); C77.2 Secondary and unspecified malignant neoplasm of intra-abdominal lymph nodes; C77.5 Secondary and unspecified malignant neoplasm of intrapelvic lymph nodes; N13.30 Unspecified hydronephrosis; N10 Acute pyelonephritis; L97.522 Non-pressure chronic ulcer of other part of left foot with fat layer exposed; C67.8 Malignant neoplasm of overlapping sites of bladder; E66.01 Morbid (severe) obesity due to excess calories; E11.622 Type 2 diabetes mellitus with other skin ulcer; I10 Essential (primary) hypertension; D64.9 Anemia, unspecified; E11.65 Type 2 diabetes mellitus with hyperglycemia; Z66 Do not resuscitate; Z79.01 Long term (current) use of anticoagulants; Z83.3 Family history of diabetes mellitus; Z79.4 Long term (current) use of insulin; Z79.899 Other long term (current) drug therapy; Z91.81 History of falling; Z68.31 Body mass index [BMI] 31.0-31.9, adult; Z87.891 Personal history of nicotine dependence; Z89.422 Acquired absence of other left toe(s); Z51.5 Encounter for palliative care
CPT/HCPCS: 36415; 70450; 71045; 74176; 80053; 80076; 81001; 82550; 82962; 83605; 83735; 83880; 84443; 85025; 85027; 87040; 87070; 87077; 87086; 87088; 87186; 87205; 99285; J1644; J1815; J1956; J2270; J2543; J3490; J7030; J7050